=== PATIENT | female | born 1935 | race Caucasian/White ===

== ENCOUNTER → 2018-10-11 07:56 | Outpatient (CLI) | payer MEDICARE, OTHER, SELFPAY ==
[2018-10-11 08:30] LABS: Appearance Urine UA CLEAR; Bilirubin Urine UA NEGATIVE (NEGATIVE); Color Urine UA YELLOW; Glucose Urine UA NEGATIVE (Negative); Ketones Urine UA NEGATIVE (NEGATIVE); Leukocyte Esterase Urine UA NEGATIVE (NEGATIVE); Nitrite Urine UA NEGATIVE (Negative); Occult Blood Urine UA NEGATIVE (Negative); Protein Urine UA NEGATIVE (Negative); Urobilinogen Urine UA 0.2 E.U./dL (0.2)
[2018-10-11 08:36] LABS: Add Manual Diff / Slide Review NO; Basophils Absolute Auto 0 /uL (0-100); Eosinophils Absolute Auto 0 /uL (0-450); Eosinophils Percent Auto 1.5 % (2-4); Hematocrit 43.8 % (36-46); Hemoglobin 14.2 g/dL (12.0-16.0); Lymphocytes Absolute Auto 900 /uL (1100-4500); Lymphocytes Percent Auto 32.4 % (25-40); Mean Corpuscular HGB Conc 32.4 % (30-36); Mean Corpuscular Hemoglobin 28.4 PG (26-34); Mean Corpuscular Volume 87.7 fL (80-100); Monocytes Absolute Auto 400 /uL (0-900); Monocytes Percent Auto 14.5 % (3-14); Neutrophils Absolute Auto 1300 /uL (1500-7000); Neutrophils Percent Auto 50.6 % (50-75); Platelet Count 221 X10^3/uL (150-400); Red Blood Cell Count 4.99 X10^6/uL (4.0-5.2); Red Cell Distribution Width 14.9 % (11.6-14.8); White Blood Cell Count 2.6 X10^3/uL (4.5-11.0)
[2018-10-11 08:50] LABS: Alanine Aminotransferase 11 IU/L (9-52); Albumin 3.8 g/dL (3.5-5.0); Albumin Globulin Ratio 1.4 (1.0-2.8); Alkaline Phosphatase 49 U/L (38-126); Aspartate Aminotransferase 17 IU/L (14-36); Bilirubin Total 0.3 mg/dL (0.2-1.3); Blood Urea Nitrogen 21 mg/dL (7-17); Calcium 8.8 mg/dL (8.4-10.2); Carbon Dioxide 32 mmol/L (22-32); Chloride 102 mmol/L (98-107); Cholesterol 233 mg/dL (140-199); Estimated Glomerular Filt Rate > 60.0 mL/min (>60); Globulin 2.8 g/dL (1.7-4.1); Glucose 113 mg/dL (80-110); HDL Cholesterol 62 mg/dL (40-60); HEMOLYSIS < 15 (0-50); LDL Cholesterol Calculated 152 mg/dL (<100); Potassium 4.4 mmol/L (3.4-5.1); Sodium 138 mmol/L (137-145); Total Protein 6.6 g/dL (6.3-8.2); Triglycerides 95 mg/dL (35-150)
[2018-10-11 09:57] LABS: Free T3, Triiodothyronine Free 4.09 pg/mL (2.77-5.27); Free T4, Direct Thyroxine 0.99 ng/dL (0.78-2.19)
[2018-10-11 10:11] LABS: Thyroid Stimulating Hormone 2.64 uIU/mL (0.47-4.68)
== END ==
PROVIDERS: PCP Family Medicine; Visit Provider Family Medicine
DX: E03.9 Hypothyroidism, unspecified (principal); I10 Essential (primary) hypertension; K21.9 Gastro-esophageal reflux disease without esophagitis; M54.5 Low back pain; R32 Unspecified urinary incontinence; Z51.81 Encounter for therapeutic drug level monitoring
CPT/HCPCS: 36415; 80053; 80061; 81003; 83036; 84439; 84443; 84481; 85025

== ENCOUNTER → 2019-03-20 09:40 | Outpatient (CLI) | payer MEDICARE, OTHER, SELFPAY ==
[2019-03-20 10:35] LABS: Add Manual Diff / Slide Review NO; Basophils Absolute Auto 0 /uL (0-100); Basophils Percent Auto 0.6 % (0-2); Eosinophils Absolute Auto 0 /uL (0-450); Eosinophils Percent Auto 1.2 % (2-4); Hematocrit 42.3 % (36-46); Hemoglobin 14.5 g/dL (12.0-16.0); Lymphocytes Absolute Auto 900 /uL (1100-4500); Lymphocytes Percent Auto 28.9 % (25-40); Mean Corpuscular HGB Conc 34.2 % (30-36); Mean Corpuscular Hemoglobin 30.4 PG (26-34); Mean Corpuscular Volume 88.8 fL (80-100); Monocytes Absolute Auto 400 /uL (0-900); Monocytes Percent Auto 13.2 % (3-14); Neutrophils Absolute Auto 1700 /uL (1500-7000); Neutrophils Percent Auto 56.1 % (50-75); Platelet Count 256 X10^3/uL (150-400); Red Blood Cell Count 4.77 X10^6/uL (4.0-5.2); Red Cell Distribution Width 14.7 % (11.6-14.8)
[2019-03-20 11:08] LABS: Alanine Aminotransferase 14 IU/L (9-52); Albumin 4.2 g/dL (3.5-5.0); Albumin Globulin Ratio 1.8 (1.0-2.8); Alkaline Phosphatase 47 U/L (38-126); Aspartate Aminotransferase 24 IU/L (14-36); BUN Creatinine Ratio 27.1 (6-22); Bilirubin Total 0.5 mg/dL (0.2-1.3); Blood Urea Nitrogen 19 mg/dL (7-17); Calcium 10.1 mg/dL (8.4-10.2); Carbon Dioxide 31 mmol/L (22-32); Chloride 101 mmol/L (98-107); Estimated Glomerular Filt Rate > 60.0 mL/min (>60); Globulin 2.4 g/dL (1.7-4.1); Glucose 99 mg/dL (80-110); HEMOLYSIS < 15 (0-50); Potassium 5.3 mmol/L (3.4-5.1); Sodium 138 mmol/L (137-145); Total Protein 6.6 g/dL (6.3-8.2)
[2019-03-21 10:49] LABS: Cholesterol 238 mg/dL (140-199); HDL Cholesterol 58 mg/dL (40-60); LDL Cholesterol Calculated 161 mg/dL (<100); Triglycerides 93 mg/dL (35-150)
[2019-03-21 10:52] LABS: Hemoglobin A1C% w Est Avg Glu 5.8 % (4.0-6.0)
== END ==
PROVIDERS: Hospitalist; PCP Family Medicine; Visit Provider Family Medicine
DX: Z01.818 Encounter for other preprocedural examination (principal); Z71.89 Other specified counseling; R73.03 Prediabetes; E78.5 Hyperlipidemia, unspecified
CPT/HCPCS: 36415; 80053; 80061; 83036; 85025

== ENCOUNTER → 2019-04-25 08:08 | Outpatient (CLI) | payer MEDICARE, OTHER, SELFPAY ==
--- NOTE | 2019-04-26 18:20 | DI.NM.S_ITS ---
DATE OF SERVICE: 04/25/2019 PROCEDURE PERFORMED: Pharmacologic vasodilator stress and rest myocardial perfusion imaging study with gating to assess ejection fraction and regional wall motion. ORDERING PROVIDER: Melissa Stout MD. INDICATIONS: The patient is an 83-year-old female with paroxysmal atrial fibrillation and an LBBB. CARDIAC STRESS: Per protocol, 0.4 mg of regadenoson was infused with a normal hemodynamic response. She had no angina and her resting ECG shows sinus rhythm with an LBBB precluding ST segment analysis. There were no obvious significant ST-segment shifts or arrhythmias with stress. Per protocol, the patient was injected with 26.0 mCi of technetium-99 Myoview, was then imaged 15 minutes later using a gated SPECT protocol. She returned the following day and was reinjected with an additional 25.9 mCi of technetium-99 Myoview and was imaged 30 minutes later, again using a gated SPECT acquisition protocol. FINDINGS: 1. Raw Data: There is fair myocardial tracer uptake with mild breast shadows noted. The lung/heart ratio is normal at 0.30 with a normal TID ratio of 0.82. 2. Quantitative Gated SPECT: Post stress ejection fraction is estimated at 90%, likely an overestimate because of relatively small left ventricular volumes. There are no wall motion abnormalities. Resting ejection fraction is estimated at 83% with a resting end-diastolic volume of 53 mL. 3. Myocardial Perfusion Imaging: Post stress supine images show a fairly normal myocardial perfusion imaging pattern with a subtle defect in the mid-to- distal anterior septum extending into the apex in a pattern that would be consistent with a LBBB artifact. This defect improves but does not completely resolve on the prone images. The resting images show an identical perfusion pattern without areas of improvement. IMPRESSION: 1. Probable normal myocardial perfusion study. 2. Mild fixed distal anteroseptal and apical defect that nearly completely resolves on prone imaging that most likely reflects left bundle branch block artifact but a previous nontransmural distal anteroseptal infarction cannot be entirely excluded. There is no evidence of any significant myocardial ischemia. 3. Normal left ventricular systolic function with relatively small left ventricular volumes and no obvious focal wall motion abnormalities. 4. No angina with pharmacologic vasodilator stress. The presence of an LBBB precludes ST segment analysis but there are no obvious ST-segment shifts or arrhythmias. Uma Suarez - RS/fn/ab doc#: [id number]/job#: [id number] dd: 04/26/2019 17:29:00 dt: 04/26/2019 17:57:00 DICTATING MD/COPIES TO: Zachery Garcia MD; Melissa Stout MD COPIES MNE: MAGDA RICE
== END ==
PROVIDERS: PCP Family Medicine; Visit Provider Internal Medicine Cardiovascular Disease
DX: I44.7 Left bundle-branch block, unspecified (principal); I48.0 Paroxysmal atrial fibrillation
CPT/HCPCS: 78452; 93016; 93017; 93018; A9502; J2785

== ENCOUNTER → 2019-05-31 07:00 | Outpatient (CLI) | payer MEDICARE, OTHER, SELFPAY ==
[2019-05-31 08:16] LABS: Add Manual Diff / Slide Review NO; Basophils Absolute Auto 0 /uL (0-100); Basophils Percent Auto 0.5 % (0-2); Eosinophils Absolute Auto 100 /uL (0-450); Eosinophils Percent Auto 1.4 % (2-4); Hematocrit 41.4 % (36-46); Hemoglobin 14.1 g/dL (12.0-16.0); Lymphocytes Absolute Auto 1000 /uL (1100-4500); Lymphocytes Percent Auto 25.4 % (25-40); Mean Corpuscular Hemoglobin 30.2 PG (26-34); Mean Corpuscular Volume 88.8 fL (80-100); Monocytes Absolute Auto 600 /uL (0-900); Neutrophils Absolute Auto 2400 /uL (1500-7000); Neutrophils Percent Auto 58.7 % (50-75); Platelet Count 237 X10^3/uL (150-400); Red Blood Cell Count 4.66 X10^6/uL (4.0-5.2); White Blood Cell Count 4.1 X10^3/uL (4.5-11.0)
[2019-05-31 08:20] LABS: BUN Creatinine Ratio 32.9 (6-22); Blood Urea Nitrogen 23 mg/dL (7-17); Calcium 9.6 mg/dL (8.4-10.2); Carbon Dioxide 34 mmol/L (22-32); Chloride 98 mmol/L (98-107); Estimated Glomerular Filt Rate > 60.0 mL/min (>60); Glucose 134 mg/dL (80-110); HEMOLYSIS < 15 (0-50); Potassium 3.4 mmol/L (3.4-5.1); Sodium 139 mmol/L (137-145)
== END ==
PROVIDERS: PCP Family Medicine; Visit Provider Family Medicine
DX: Z01.818 Encounter for other preprocedural examination (principal)
CPT/HCPCS: 36415; 80048; 85025

== ENCOUNTER → 2019-07-11 10:21 | Outpatient (CLI) | payer MEDICARE, OTHER, SELFPAY ==
[2019-07-11 12:02] LABS: Add Manual Diff / Slide Review NO; Basophils Absolute Auto 0 /uL (0-100); Basophils Percent Auto 1.3 % (0-2); Eosinophils Absolute Auto 100 /uL (0-450); Eosinophils Percent Auto 2.8 % (2-4); Hematocrit 41.6 % (36-46); Hemoglobin 14.1 g/dL (12.0-16.0); Lymphocytes Absolute Auto 800 /uL (1100-4500); Lymphocytes Percent Auto 24.2 % (25-40); Mean Corpuscular HGB Conc 33.9 % (30-36); Mean Corpuscular Hemoglobin 29.5 PG (26-34); Mean Corpuscular Volume 87.1 fL (80-100); Monocytes Absolute Auto 300 /uL (0-900); Monocytes Percent Auto 8.8 % (3-14); Neutrophils Absolute Auto 2000 /uL (1500-7000); Neutrophils Percent Auto 62.9 % (50-75); Platelet Count 314 X10^3/uL (150-400); Red Blood Cell Count 4.77 X10^6/uL (4.0-5.2); Red Cell Distribution Width 14.6 % (11.6-14.8); White Blood Cell Count 3.2 X10^3/uL (4.5-11.0)
[2019-07-11 12:42] LABS: Alanine Aminotransferase 68 IU/L (<35); Albumin 4.5 g/dL (3.5-5.0); Albumin Globulin Ratio 1.6 (1.0-2.8); Alkaline Phosphatase 78 U/L (38-126); Aspartate Aminotransferase 47 IU/L (14-36); BUN Creatinine Ratio 31.4 (6-22); Bilirubin Total 0.4 mg/dL (0.2-1.3); Blood Urea Nitrogen 22 mg/dL (7-17); Calcium 9.7 mg/dL (8.4-10.2); Carbon Dioxide 28 mmol/L (22-32); Chloride 100 mmol/L (98-107); Estimated Glomerular Filt Rate > 60.0 mL/min (>60); Globulin 2.8 g/dL (1.7-4.1); Glucose 121 mg/dL (80-110); HEMOLYSIS 15 (0-50); Potassium 3.8 mmol/L (3.4-5.1); Sodium 139 mmol/L (137-145); Total Protein 7.3 g/dL (6.3-8.2)
[2019-07-11 12:55] LABS: Free T4, Direct Thyroxine 1.13 ng/dL (0.78-2.19)
[2019-07-11 13:09] LABS: Thyroid Stimulating Hormone 2.11 uIU/mL (0.47-4.68)
== END ==
PROVIDERS: PCP Family Medicine; Referring Provider Family Medicine; Visit Provider Family Medicine
DX: E03.9 Hypothyroidism, unspecified (principal); Z96.652 Presence of left artificial knee joint
CPT/HCPCS: 36415; 80053; 84439; 84443; 85025

== ENCOUNTER → 2019-12-24 07:54 | Outpatient (CLI) | payer MEDICARE, OTHER, SELFPAY ==
[2019-12-24 09:26] LABS: Alanine Aminotransferase 12 IU/L (<35); Albumin 4.1 g/dL (3.5-5.0); Albumin Globulin Ratio 1.6 (1.0-2.8); Alkaline Phosphatase 45 U/L (38-126); Aspartate Aminotransferase 24 IU/L (14-36); Bilirubin Total 0.6 mg/dL (0.2-1.3); Blood Urea Nitrogen 20 mg/dL (7-17); Calcium 9.4 mg/dL (8.4-10.2); Carbon Dioxide 33 mmol/L (22-32); Chloride 103 mmol/L (98-107); Estimated Glomerular Filt Rate > 60.0 mL/min (>60); Globulin 2.5 g/dL (1.7-4.1); Glucose 129 mg/dL (80-110); HEMOLYSIS < 15 (0-50); Potassium 3.9 mmol/L (3.4-5.1); Sodium 138 mmol/L (137-145); Total Protein 6.6 g/dL (6.3-8.2)
== END ==
PROVIDERS: PCP Family Medicine; Referring Provider Family Medicine; Visit Provider Family Medicine
DX: R94.5 Abnormal results of liver function studies (principal)
CPT/HCPCS: 36415; 80053

== ENCOUNTER → 2020-05-27 06:58 | Outpatient (CLI) | payer MEDICARE, OTHER, SELFPAY ==
[2020-05-27 08:44] LABS: Add Manual Diff / Slide Review NO; Basophils Absolute Auto 0 /uL (0-100); Basophils Percent Auto 0.5 % (0-2); Eosinophils Absolute Auto 100 /uL (0-450); Eosinophils Percent Auto 2.3 % (2-4); Hemoglobin 13.6 g/dL (12.0-16.0); Lymphocytes Absolute Auto 900 /uL (1100-4500); Lymphocytes Percent Auto 24.3 % (25-40); Mean Corpuscular Volume 88.2 fL (80-100); Monocytes Absolute Auto 500 /uL (0-900); Monocytes Percent Auto 12.7 % (3-14); Neutrophils Absolute Auto 2200 /uL (1500-7000); Neutrophils Percent Auto 60.2 % (50-75); Platelet Count 220 X10^3/uL (150-400); Red Blood Cell Count 4.54 X10^6/uL (4.0-5.2); Red Cell Distribution Width 14.9 % (11.6-14.8); White Blood Cell Count 3.7 X10^3/uL (4.5-11.0)
[2020-05-27 09:02] LABS: BUN Creatinine Ratio 14.1 (6-22); Blood Urea Nitrogen 9 mg/dL (7-17); Calcium 9.4 mg/dL (8.4-10.2); Carbon Dioxide 33 mmol/L (22-32); Chloride 101 mmol/L (98-107); Cholesterol 167 mg/dL (140-199); Estimated Glomerular Filt Rate > 60.0 mL/min (>60); Glucose 108 mg/dL (80-110); HDL Cholesterol 60 mg/dL (40-60); HEMOLYSIS < 15 (0-50); LDL Cholesterol Calculated 84 mg/dL (<100); Potassium 3.7 mmol/L (3.4-5.1); Sodium 137 mmol/L (137-145); Triglycerides 114 mg/dL (35-150)
== END ==
PROVIDERS: PCP Family Medicine; Referring Provider Family Medicine; Visit Provider Internal Medicine Cardiovascular Disease
DX: E78.5 Hyperlipidemia, unspecified (principal); Z79.01 Long term (current) use of anticoagulants; I48.0 Paroxysmal atrial fibrillation
CPT/HCPCS: 36415; 80048; 80061; 85025

== ENCOUNTER → 2020-06-10 16:37 | Outpatient (CLI) | payer MEDICARE, OTHER, SELFPAY ==
[2020-06-10 17:46] LABS: Free T4, Direct Thyroxine 1.04 ng/dL (0.78-2.19)
[2020-06-10 18:00] LABS: Thyroid Stimulating Hormone 1.67 uIU/mL (0.47-4.68)
== END ==
PROVIDERS: PCP Family Medicine; Referring Provider Family Medicine; Visit Provider Family Medicine
DX: E03.9 Hypothyroidism, unspecified (principal); R73.09 Other abnormal glucose; R73.03 Prediabetes
CPT/HCPCS: 36415; 83036; 84439; 84443

== ENCOUNTER → 2021-04-23 08:23 | Outpatient (CLI) | payer MEDICARE, OTHER, SELFPAY ==
[2021-04-23 09:21] LABS: Add Manual Diff / Slide Review NO; Basophils Absolute Auto 0 /uL (0-100); Basophils Percent Auto 0.9 % (0-2); Eosinophils Absolute Auto 100 /uL (0-450); Eosinophils Percent Auto 5.5 % (2-4); Hematocrit 44.3 % (36-46); Hemoglobin 15.1 g/dL (12.0-16.0); Lymphocytes Absolute Auto 500 /uL (1100-4500); Lymphocytes Percent Auto 23.5 % (25-40); Mean Corpuscular Hemoglobin 29.8 PG (26-34); Mean Corpuscular Volume 87.5 fL (80-100); Monocytes Absolute Auto 300 /uL (0-900); Neutrophils Absolute Auto 1300 /uL (1500-7000); Neutrophils Percent Auto 56.1 % (50-75); Platelet Count 212 X10^3/uL (150-400); Red Blood Cell Count 5.06 X10^6/uL (4.0-5.2); Red Cell Distribution Width 15.1 % (11.6-14.8); White Blood Cell Count 2.2 X10^3/uL (4.5-11.0)
[2021-04-23 09:34] LABS: Hemoglobin A1C% w Est Avg Glu 5.7 % (4.0-6.0)
[2021-04-23 10:10] LABS: Alanine Aminotransferase 15 IU/L (<35); Albumin 4.3 g/dL (3.5-5.0); Albumin Globulin Ratio 1.6 (1.0-2.8); Alkaline Phosphatase 52 U/L (38-126); Aspartate Aminotransferase 25 IU/L (14-36); BUN Creatinine Ratio 17.9 (6-22); Bilirubin Total 0.5 mg/dL (0.2-1.3); Blood Urea Nitrogen 15 mg/dL (7-17); Calcium 9.2 mg/dL (8.4-10.2); Carbon Dioxide 30 mmol/L (22-32); Chloride 103 mmol/L (98-107); Cholesterol 192 mg/dL (140-199); Estimated Glomerular Filt Rate > 60.0 mL/min (>60); Globulin 2.7 g/dL (1.7-4.1); Glucose 110 mg/dL (80-110); HDL Cholesterol 67 mg/dL (40-60); HEMOLYSIS < 15 (0-50); LDL Cholesterol Calculated 100 mg/dL (<100); Potassium 3.8 mmol/L (3.4-5.1); Sodium 141 mmol/L (137-145); Triglycerides 123 mg/dL (35-150)
[2021-04-23 10:22] LABS: Free T4, Direct Thyroxine 0.99 ng/dL (0.78-2.19)
[2021-04-23 10:36] LABS: Thyroid Stimulating Hormone 2.58 uIU/mL (0.47-4.68)
== END ==
PROVIDERS: PCP Family Medicine; Referring Provider Family Medicine; Visit Provider Family Medicine
DX: E03.9 Hypothyroidism, unspecified (principal); R73.03 Prediabetes; E78.5 Hyperlipidemia, unspecified
CPT/HCPCS: 36415; 80053; 80061; 83036; 84439; 84443; 85025

== ENCOUNTER → 2021-05-30 08:17 | Outpatient (CLI) | payer MEDICARE, OTHER, SELFPAY ==
[2021-05-30 09:01] LABS: Add Manual Diff / Slide Review NO; Basophils Absolute Auto 0 /uL (0-100); Basophils Percent Auto 0.8 % (0-2); Eosinophils Absolute Auto 100 /uL (0-450); Eosinophils Percent Auto 1.8 % (2-4); Hematocrit 41.4 % (36-46); Hemoglobin 14.1 g/dL (12.0-16.0); Lymphocytes Absolute Auto 800 /uL (1100-4500); Lymphocytes Percent Auto 27.3 % (25-40); Mean Corpuscular Hemoglobin 29.6 PG (26-34); Mean Corpuscular Volume 87.1 fL (80-100); Monocytes Absolute Auto 400 /uL (0-900); Neutrophils Absolute Auto 1700 /uL (1500-7000); Neutrophils Percent Auto 57.1 % (50-75); Platelet Count 203 X10^3/uL (150-400); Red Blood Cell Count 4.75 X10^6/uL (4.0-5.2); Red Cell Distribution Width 14.9 % (11.6-14.8); White Blood Cell Count 2.9 X10^3/uL (4.5-11.0)
[2021-05-30 09:17] LABS: BUN Creatinine Ratio 22.1 (6-22); Blood Urea Nitrogen 15 mg/dL (7-17); Calcium 9.5 mg/dL (8.4-10.2); Carbon Dioxide 33 mmol/L (22-32); Chloride 105 mmol/L (98-107); Cholesterol 176 mg/dL (140-199); Estimated Glomerular Filt Rate > 60.0 mL/min (>60); Glucose 104 mg/dL (80-110); HDL Cholesterol 65 mg/dL (40-60); HEMOLYSIS < 15 (0-50); LDL Cholesterol Calculated 91 mg/dL (<100); Potassium 3.9 mmol/L (3.4-5.1); Sodium 140 mmol/L (137-145); Triglycerides 99 mg/dL (35-150)
== END ==
PROVIDERS: PCP Family Medicine; Referring Provider Internal Medicine Cardiovascular Disease; Visit Provider Internal Medicine Cardiovascular Disease
DX: E78.5 Hyperlipidemia, unspecified (principal); Z79.01 Long term (current) use of anticoagulants; I48.0 Paroxysmal atrial fibrillation
CPT/HCPCS: 36415; 80048; 80061; 85025

== ENCOUNTER 2022-04-09 15:29 | Emergency (ER) | payer MEDICARE, OTHER, SELFPAY ==
[2022-04-09] VITALS (34 sets, daily range): BP systolic 113–174; BP diastolic 78–134; PULSE 75–148; RESP 14–24; TEMP 36.6; O2SAT 88–100
--- NOTE | 2022-04-09 15:43 | DI.RAD.S_ITS ---
PROCEDURE: XR CHEST 1V INDICATIONS: Shortness of breath TECHNIQUE: One view of the chest was acquired. COMPARISON: None. FINDINGS: Surgical changes and devices: Cholecystectomy clips. Lungs and pleura: Minimal streaky opacity at the left lung base. No pleural effusions or pneumothorax. Mediastinum: There appears to be air within the lower esophagus. No adenopathy is identified. Heart size is normal. Bones and chest wall: No suspicious bony lesions. Overlying soft tissues appear unremarkable. IMPRESSION: Minimal left basilar atelectasis. Suspect air in the distal esophagus. Dictated by: Gurwinder Chinchilla M.D. on 04/09/2022 at 16:25 Approved by: Gurwinder Chinchilla M.D. on 04/09/2022 at 16:27
[2022-04-09 16:23] LABS: INR 1.2 (0.9-1.3)
[2022-04-09 16:24] LABS: Add Manual Diff / Slide Review NO; Basophils Absolute Auto 0 /uL (0-100); Basophils Percent Auto 0.7 % (0-2); Eosinophils Absolute Auto 100 /uL (0-450); Eosinophils Percent Auto 1.8 % (2-4); Hematocrit 42.9 % (36-46); Hemoglobin 14.1 g/dL (12.0-16.0); Lymphocytes Absolute Auto 900 /uL (1100-4500); Lymphocytes Percent Auto 25.8 % (25-40); Mean Corpuscular HGB Conc 32.9 % (30-36); Mean Corpuscular Hemoglobin 29.2 PG (26-34); Mean Corpuscular Volume 88.7 fL (80-100); Monocytes Absolute Auto 500 /uL (0-900); Neutrophils Absolute Auto 2000 /uL (1500-7000); Neutrophils Percent Auto 57.7 % (50-75); Platelet Count 257 X10^3/uL (150-400); Red Blood Cell Count 4.83 X10^6/uL (4.0-5.2); Red Cell Distribution Width 15.2 % (11.6-14.8); White Blood Cell Count 3.5 X10^3/uL (4.5-11.0)
[2022-04-09 16:27] LABS: Lactate (Lactic Acid) 0.9 mmol/L (0.7-2.1)
[2022-04-09 16:28] LABS: Alanine Aminotransferase 16 IU/L (<35); Albumin 4.3 g/dL (3.5-5.0); Albumin Globulin Ratio 1.5 (1.0-2.8); Alkaline Phosphatase 58 U/L (38-126); Aspartate Aminotransferase 20 IU/L (14-36); BUN Creatinine Ratio 23.9 (6-22); Bilirubin Total 0.3 mg/dL (0.2-1.3); Blood Urea Nitrogen 16 mg/dL (7-17); Calcium 8.8 mg/dL (8.4-10.2); Carbon Dioxide 31 mmol/L (22-32); Chloride 100 mmol/L (98-107); Estimated Glomerular Filt Rate > 60 mL/min (>60); Globulin 2.8 g/dL (1.7-4.1); Glucose 106 mg/dL (80-110); HEMOLYSIS < 15 (0-50); Potassium 3.7 mmol/L (3.4-5.1); Sodium 141 mmol/L (137-145); Total Protein 7.1 g/dL (6.3-8.2)
[2022-04-09 16:39] LABS: NT-proBNP (BNP-Adult 18+) 2930 pg/mL (<450); Troponin I < 0.012 ng/mL (0.01-0.034)
[2022-04-09 17:14] LABS: COVID19 -Nasal RAPID Negative (Negative)
[2022-04-09] MEDS: METOPROLOL TARTRATE 5 MG/5 ML INJ IV ×6 (17:46→19:47)
--- NOTE | 2022-04-09 18:15 | ED.GENADULT ---
HPI - General Adult General Chief complaint: Shortness of Breath/Dyspnea Stated complaint: AFIB and inferior afarct Time Seen by Provider: 04/09/22 17:09 Source: patient Mode of arrival: Ambulatory History of Present Illness HPI narrative: 86-year-old woman with a history of asthma, reflux, paroxysmal atrial fibrillation currently anticoagulated on rivaroxaban, hyperlipidemia who presents with exertional dyspnea. It has been going on for approximately week gotten worse over the last 24 hours. She notes a 10 lb weight increase over the last month. She saw her primary care doctor who noted that she was back in atrial fibrillation rate in the 130s and sent her to the ER for further evaluation.. Current dose of metoprolol is 24 mg of the succinate form. Not having any chest pain and no sensation that her heart is actually fast. She does not notice any orthopnea. She has not had lower extremity edema. No recent fevers, cough, chills, nausea, vomiting, diarrhea, headaches, weakness or paresthesias. Related Data Home Medications Medication Instructions Recorded Confirmed fluticasone propionate 50 1 spray intranasal DAILY 09/19/18 04/09/22 mcg/actuation nasal spray,suspension acetaminophen 500 mg tablet 1,000 mg PO Q6H PRN Pain (Scale 03/21/19 04/09/22 (Tylenol Extra Strength) Score 1-3) esomeprazole magnesium 20 mg 20 mg PO DAILY 07/10/19 04/09/22 capsule,delayed release (Nexium) Previous Rx's Medication Instructions Recorded rivaroxaban 10 mg tablet 10 mg PO DAILY #90 tabs 04/21/21 rosuvastatin 5 mg tablet 2.5 mg PO DAILY #45 tabs 04/21/21 albuterol sulfate 90 mcg/actuation 2 puff inhalation Q6H PRN 08/23/21 aerosol inhaler shortness of breath or wheezing #8.5 grams thyroid (pork) 30 mg tablet See Rx Instructions .Route 09/02/21 ([place] Thyroid) .COMPLEX #90 tabs metoprolol succinate 25 mg See Rx Instructions .Route 03/22/22 tablet,extended release 24 hr .COMPLEX #90 tabs Allergies Allergy/AdvReac Type Severity Reaction Status Date / Time levothyroxine sodium Allergy Mild itching Verified 04/09/22 15:41 [From Synthroid] liothyronine Allergy Mild Itching Verified 04/09/22 15:41 diltiazem Allergy dizziness, Verified 04/09/22 15:41 nausea, triamterene AdvReac Mild Weakness, Verified 04/09/22 15:41 dizzy spells codeine AdvReac dizziness Verified 04/09/22 15:41 Review of Systems Review of Systems Narrative: Remainder of complete review of systems is otherwise unremarkable except for that included in the HPI. Patient History Medical History Atrial fibrillation (~2016) Basal cell carcinoma Chicken pox (~194) Dizzy GERD (gastroesophageal reflux disease) (~1999) Hearing loss (~1994) Hiatal hernia History of urinary incontinence (~2015) Hypothyroidism Insomnia Measles (~1940) Mumps (~1949) Osteoarthritis (~1979) Osteopenia (~1979) Prediabetes Retinal detachment (~1993) Rheumatic fever Rubella (~1949) Seasonal allergies (~1949) Tinnitus (~1959) Vertigo (~1959) Vision disorder Surgical History Anesthesia History of eye surgery History of foot surgery (~1986) History of hysterectomy (~1985) History of knee surgery History of surgery History of tonsillectomy (~193) History of total left knee replacement Status post right knee replacement Family History Father Cancer Mother Diabetes mellitus History of heart disease Stroke Social History Smoking Status: Former smoker Tobacco: How many years used: 20 quit status: has quit before substance use type: marijuana Smoking Status: Former smoker alcohol intake frequency: a few times a week Substance Use Type: does not use Exam Initial Vital Signs Initial Vital Signs: Vital Signs Temperature 98 F 04/09/22 15:35 Pulse Rate 75 04/09/22 15:35 Respiratory Rate 19 04/09/22 15:35 Blood Pressure 138/118 H 04/09/22 15:35 Pulse Oximetry 100 04/09/22 15:35 Oxygen Delivery Method 04/09/22 15:35 General: Healthy appearing, in no acute distress. Able to give a complete and coherent history. Well-nourished well-developed HEENT: Moist mucous membranes, normal sclera with reactive pupils, Neck: No JVD, supple Respiratory: Lungs are clear to auscultation, no wheezing no rales no rhonchi. Full and symmetrical air movement Cardiac: Rapid and irregular without murmurs. Abdomen: Soft, nontender, good bowel tones, no flank pain Skin: Warm and dry, no rashes Neurologic: Grossly neurologically intact with no obvious asymmetries or abnormalities Extremities: No trauma, well perfused, no lower extremity edema Psych: Cooperative, appropriate insight and affect Course Orders Ordered: Discontinued Medications Furosemide (Furosemide 40 Mg/4 Ml Vial) 20 mg IV NOW ONE Stop: 04/09/22 19:25 Last Admin: 04/09/22 19:35 Dose: 20 mg Documented By: GERARDO Metoprolol Succinate (Metoprolol Er 25 Mg Tablet) 25 mg PO NOW ONE Stop: 04/09/22 19:18 Last Admin: 04/09/22 19:34 Dose: 25 mg Documented By: GERARDO Metoprolol Tartrate (Metoprolol Tartrate 5 Mg/5 Ml Inj) 5 mg IV Q5M [facility] Stop: 04/09/22 17:26 Last Admin: 04/09/22 18:07 Dose: 5 mg Documented By: Admin: 04/09/22 17:56 Dose: 5 mg Documented By: Admin: 04/09/22 17:46 Dose: 5 mg Documented By: DASHA Metoprolol Tartrate (Metoprolol Tartrate 5 Mg/5 Ml Inj) 5 mg IV Q5M [facility] Stop: 04/09/22 19:41 Last Admin: 04/09/22 19:47 Dose: 5 mg Documented By: Admin: 04/09/22 19:42 Dose: 5 mg Documented By: Admin: 04/09/22 19:36 Dose: 5 mg Documented By: RL Rivaroxaban (Rivaroxaban 10 Mg Tablet) 10 mg PO NOW ONE Stop: 04/09/22 19:18 Last Admin: 04/09/22 19:34 Dose: 10 mg Documented By: GERARDO Vital Signs Vital signs: Vital Signs - 8 hr 04/09/22 19:25 04/09/22 19:25 04/09/22 19:30 Pulse Rate 135 H Respiratory Rate 24 Blood Pressure 127/86 133/97 H Pulse Oximetry 97 Oxygen Delivery Method 04/09/22 19:30 04/09/22 19:36 04/09/22 19:36 Pulse Rate 136 H 137 H Respiratory Rate 19 23 Blood Pressure 120/85 Pulse Oximetry 97 96 Oxygen Delivery Method 04/09/22 19:45 04/09/22 19:46 04/09/22 19:46 Pulse Rate 130 H 134 H Respiratory Rate 19 21 Blood Pressure 154/90 H Pulse Oximetry 96 96 Oxygen Delivery Method 04/09/22 20:02 Pulse Rate 134 H Respiratory Rate 16 Blood Pressure 152/89 H Pulse Oximetry 98 Oxygen Delivery Method Room Air Medical Decision Making Lab Data Result diagrams: 04/09/22 16:01 04/09/22 16:01 Labs: Lab Results 04/09/22 04/09/22 04/09/22 Range/Units 16:01 16:01 16:01 WBC 3.5 L (4.5-11.0) X10^3/uL RBC 4.83 (4.0-5.2) X10^6/uL Hgb 14.1 (12.0-16.0) g/dL Hct 42.9 (36-46) % MCV 88.7 (80-100) fL MCH 29.2 (26-34) PG MCHC 32.9 (30-36) % RDW 15.2 H (11.6-14.8) % Plt Count 257 (150-400) X10^3/uL Neut % (Auto) 57.7 (50-75) % Lymph % (Auto) 25.8 (25-40) % [place] % (Auto) 14.0 (3-14) % Eos % (Auto) 1.8 L (2-4) % Baso % (Auto) 0.7 (0-2) % Neut # (Auto) 2000 (7286-3452) /uL Lymph # (Auto) 900 L (9059-5499) /uL [place] # (Auto) 500 (0-900) /uL Eos # (Auto) 100 (0-450) /uL Baso # (Auto) 0 (0-100) /uL PT 14.0 H (10.1-12.7) SECONDS INR 1.2 (0.9-1.3) Sodium 141 (137-145) mmol/L Potassium 3.7 (3.4-5.1) mmol/L Chloride 100 (98-107) mmol/L Carbon Dioxide 31 (22-32) mmol/L BUN 16 (7-17) mg/dL Creatinine 0.67 (0.52-1.04) mg/dL Estimated GFR > 60 (>60) mL/min BUN/Creatinine Ratio 23.9 H (6-22) Glucose 106 (80-110) mg/dL Lactate (0.7-2.1) mmol/L Calcium 8.8 (8.4-10.2) mg/dL Total Bilirubin 0.3 (0.2-1.3) mg/dL AST 20 (14-36) IU/L ALT 16 (<35) IU/L Alkaline Phosphatase 58 (38-126) U/L Troponin I < 0.012 (0.01-0.034) ng/mL NT-Pro-B Natriuret Pep 2930 H (<450) pg/mL Total Protein 7.1 (6.3-8.2) g/dL Albumin 4.3 (3.5-5.0) g/dL Globulin 2.8 (1.7-4.1) g/dL Albumin/Globulin Ratio 1.5 (1.0-2.8) SARS-CoV-2 (PCR) (Negative) 04/09/22 04/09/22 Range/Units 16:01 16:54 WBC (4.5-11.0) X10^3/uL RBC (4.0-5.2) X10^6/uL Hgb (12.0-16.0) g/dL Hct (36-46) % MCV (80-100) fL MCH (26-34) PG MCHC (30-36) % RDW (11.6-14.8) % Plt Count (150-400) X10^3/uL Neut % (Auto) (50-75) % Lymph % (Auto) (25-40) % [place] % (Auto) (3-14) % Eos % (Auto) (2-4) % Baso % (Auto) (0-2) % Neut # (Auto) (6837-8811) /uL Lymph # (Auto) (1041-9645) /uL [place] # (Auto) (0-900) /uL Eos # (Auto) (0-450) /uL Baso # (Auto) (0-100) /uL PT (10.1-12.7) SECONDS INR (0.9-1.3) Sodium (137-145) mmol/L Potassium (3.4-5.1) mmol/L Chloride (98-107) mmol/L Carbon Dioxide (22-32) mmol/L BUN (7-17) mg/dL Creatinine (0.52-1.04) mg/dL Estimated GFR (>60) mL/min BUN/Creatinine Ratio (6-22) Glucose (80-110) mg/dL Lactate 0.9 (0.7-2.1) mmol/L Calcium (8.4-10.2) mg/dL Total Bilirubin (0.2-1.3) mg/dL AST (14-36) IU/L ALT (<35) IU/L Alkaline Phosphatase (38-126) U/L Troponin I (0.01-0.034) ng/mL NT-Pro-B Natriuret Pep (<450) pg/mL Total Protein (6.3-8.2) g/dL Albumin (3.5-5.0) g/dL Globulin (1.7-4.1) g/dL Albumin/Globulin Ratio (1.0-2.8) SARS-CoV-2 (PCR) Negative (Negative) Imaging Data Chest x-ray: Radiologist's Impression: FINDINGS:? ? Surgical changes and devices:? Cholecystectomy clips.? ? Lungs and pleura:? Minimal streaky opacity at the left lung base.? No pleural effusions or pneumothorax.? ? Mediastinum:? There appears to be air within the lower esophagus.? No adenopathy is identified.? Heart size is normal.? ? Bones and chest wall:? No suspicious bony lesions.? Overlying soft tissues appear unremarkable.? ? IMPRESSION:? Minimal left basilar atelectasis.? ? Suspect air in the distal esophagus. ? ? Dictated by: Gurwinder Chinchilla M.D. on 04/09/2022 at 16:25 ? ? ECG Data Interpretation: Atrial fibrillation at a rate of 132 Left bundle branch block with left axis deviation No acute ischemia MDM Narrative Medical decision making narrative: Discussed with Dr Crump Given the fact that she has likely been in AFib for the last week and on an inadequate dose of rivaroxaban, 5 mg only, recommended against cardioversion in the department. Her recommendation was to increase drive about rocks back to full 20 mg daily, increase metoprolol to 25 mg succinate b.i.d. and discharge home. She will speak with Dr. Lisa to arrange for close outpatient follow-up. She does have some mild fluid overload likely as result of her increased rate over the last week. Will give her 20 mg of Lasix today however if her rate comes down I think she will diurese nicely and I will not anticipate discharging her home with additional diuretics. Discharge Plan Departure Patient Disposition: Home Clinical Impression: Atrial fibrillation with rapid ventricular response, Exertional dyspnea, Cardiac volume overload Atrial fibrillation Qualifiers: Atrial fibrillation type: paroxysmal Qualified Code(s): I48.0 - Paroxysmal atrial fibrillation Instructions: DI for Atrial Fibrillation Activity Restrictions/Additional Instructions: Thank you for coming in today I suspect that you have been in atrial fibrillation that has been going a bit too fast for the last week. The rapid heart rate as well as the slight fluid buildup from the rapid heart rate are all contributing to the shortness of breath that you are experiencing. In the emergency department, your blood work was very reassuring. There is no evidence of a heart attack or electrolyte abnormalities. Thyroid studies are currently pending in your primary care doctor associate dean of students can follow-up with this next week. I am going to suggest a number of recommendations and changes for your medications after my discussion with Dr. Crump, the associate dean of students quality assurance monitor final this evening. 1. increase your metoprolol ER 25mg to morning and night 2. Increase your rivaroxaban to 20 mg total daily. This will be 2 of your current 10 mg pills Continue all of your other medications without changes Dr. Crump will be contacting your associate dean of students and you should expect to hear from the Cardiology group early next week to set up an appointment to be seen early next week. If you find that you are having chest pain, your shortness of breath is worsening, your having new or changing symptoms, you develop a fever or cough you do need to return to the emergency department I wish you the best Prescriptions: No Action albuterol sulfate 90 mcg/actuation HFA aerosol inhaler 2 puff inhalation Q6H PRN (Reason: shortness of breath or wheezing) Qty: 8.5 0RF thyroid (pork) [[place] Thyroid] 30 mg tablet See Rx Instructions .ROUTE .COMPLEX Qty: 90 0RF Dose Instruction: TAKE 1 TABLET BY MOUTH DAILY Rx Instructions: TAKE 1 TABLET BY MOUTH DAILY metoprolol succinate 25 mg tablet extended release 24 hr See Rx Instructions .ROUTE .COMPLEX Qty: 90 3RF Dose Instruction: TAKE 1 TABLET BY MOUTH DAILY Rx Instructions: TAKE 1 TABLET BY MOUTH DAILY fluticasone propionate 50 mcg/actuation spray,suspension 1 spray NASAL DAILY esomeprazole magnesium [Nexium] 20 mg capsule,delayed release(DR/EC) 20 mg PO DAILY rivaroxaban 10 mg tablet 10 mg PO DAILY Qty: 90 3RF rosuvastatin 5 mg tablet 2.5 mg PO DAILY Qty: 45 3RF acetaminophen [Tylenol Extra Strength] 500 mg tablet 1,000 mg PO Q6H PRN (Reason: Pain (Scale Score 1-3)) Referrals: Joey Duncan DO [Primary Care Provider] - Visit Report Forms: Patient Portal/API
[2022-04-09] MEDS: METOPROLOL ER 25 MG TABLET PO (19:34)
[2022-04-09] MEDS: RIVAROXABAN 10 MG TABLET PO (19:34)
[2022-04-09] MEDS: FUROSEMIDE 40 MG/4 ML VIAL 20 MG IV (19:35)
== END 2022-04-09 20:08 | disposition home or self-care (01) ==
PROVIDERS: Emergency Medicine; Emergency Provider Emergency Medicine; PCP Family Medicine
DX: I48.0 Paroxysmal atrial fibrillation (principal); R06.00 Dyspnea, unspecified; E87.79 Other fluid overload; Z79.899 Other long term (current) drug therapy; Z20.822 Contact with and (suspected) exposure to COVID-19
CPT/HCPCS: 36415; 71045; 80053; 83605; 83880; 84484; 85025; 85610; 87635; 93005; 93010; 96374; 96375; 96376; 99284; C9803; J1940

== ENCOUNTER 2022-04-13 06:26 | Emergency (ER) | payer MEDICARE, OTHER, SELFPAY ==
[2022-04-13] VITALS (16 sets, daily range): BP systolic 111–162; BP diastolic 76–98; PULSE 88–150; RESP 13–30; TEMP 37.5; O2SAT 93–99; BMI 29.2
--- NOTE | 2022-04-13 06:29 | ED.SOB ---
HPI - SOB/Dyspnea <Norberto Camejo, DO - Last Filed: 04/14/22 02:55> General Chief Complaint: Arrhythmia/Palpitations Stated Complaint: Afib Time Seen by Provider: 04/13/22 06:28 History of Present Illness HPI Narrative: 86F former smoker with history of AFib on Xarelto presents by EMS for evaluation of orthopnea for the past few days. She was seen and evaluated here a few days ago under relatively similar circumstances and after consultation between our emergency physician and Cardiology she was thought to not be an appropriate candidate for cardioversion as she had been subtherapeutic on low-dose Xarelto. After consultation her metoprolol was increased to 25 mg b.i.d. and she was increased to Xarelto 20 mg and encouraged to follow-up. She has had about a 10 lb weight gain over the past month or so. Prior to her visit on Tuesday she had been in AFib for about a week. She is had no fever or chills. She is not dizzy nor weak or lightheaded. She denies any nausea, vomiting or diarrhea Related Data Home Medications Medication Instructions Recorded Confirmed fluticasone propionate 50 1 spray intranasal DAILY 09/19/18 04/09/22 mcg/actuation nasal spray,suspension acetaminophen 500 mg tablet 1,000 mg PO Q6H PRN Pain (Scale 03/21/19 04/09/22 (Tylenol Extra Strength) Score 1-3) esomeprazole magnesium 20 mg 20 mg PO DAILY 07/10/19 04/09/22 capsule,delayed release (Nexium) Previous Rx's Medication Instructions Recorded rivaroxaban 10 mg tablet 10 mg PO DAILY #90 tabs 04/21/21 rosuvastatin 5 mg tablet 2.5 mg PO DAILY #45 tabs 04/21/21 albuterol sulfate 90 mcg/actuation 2 puff inhalation Q6H PRN 08/23/21 aerosol inhaler shortness of breath or wheezing #8.5 grams thyroid (pork) 30 mg tablet See Rx Instructions .Route 09/02/21 ([place] Thyroid) .COMPLEX #90 tabs metoprolol succinate 25 mg See Rx Instructions .Route 03/22/22 tablet,extended release 24 hr .COMPLEX #90 tabs furosemide 20 mg tablet (Lasix) 20 mg PO DAILY PRN edema #30 tabs 04/13/22 metoprolol tartrate 75 mg tablet 75 mg PO BID #60 tabs 04/13/22 spironolactone 25 mg tablet 12.5 mg PO DAILY #30 tabs 04/13/22 Allergies Allergy/AdvReac Type Severity Reaction Status Date / Time levothyroxine sodium Allergy Mild itching Verified 04/09/22 15:41 [From Synthroid] liothyronine Allergy Mild Itching Verified 04/09/22 15:41 diltiazem Allergy dizziness, Verified 04/09/22 15:41 nausea, triamterene AdvReac Mild Weakness, Verified 04/09/22 15:41 dizzy spells codeine AdvReac dizziness Verified 04/09/22 15:41 Review of Systems <Norberto Camejo DO - Last Filed: 04/14/22 02:55> Review of Systems Narrative: GENERAL: Denies chills, fatigue, malaise, fever, sweats. HEENT: Denies sinus pain, ear pain, sore throat, difficulty swallowing, dizziness. RESPIRATORY: See HPI CARDIOVASCULAR: See HPI GASTROINTESTINAL: Denies nausea, vomiting, abdominal pain, diarrhea, constipation, melena. : Denies dysuria, frequency, incontinence, hematuria, urinary retention. MUSCULOSKELETAL: denies weakness, joint pain, or bony pain SKIN: Denies rash, skin lesions, or other NEUROLOGIC: Denies weakness, headache, numbness, change in speech, confusion, seizures, incoordination. PSYCHIATRIC: No concerning psychosocial issues. 12 point review of systems is negative except for those stated above Patient History <DO Jay Pelayo Last Filed: 04/14/22 02:55> Medical History Atrial fibrillation (~2017) Basal cell carcinoma Chicken pox (~1948) Dizzy GERD (gastroesophageal reflux disease) (~1999) Hearing loss (~1994) Hiatal hernia History of urinary incontinence (~2015) Hypothyroidism Insomnia Measles (~194) Mumps (~1949) Osteoarthritis (~1979) Osteopenia (~1979) Prediabetes Retinal detachment (~1993) Rheumatic fever Rubella (~1949) Seasonal allergies (~1949) Tinnitus (~1959) Vertigo (~1959) Vision disorder Surgical History Anesthesia History of eye surgery History of foot surgery (~1986) History of hysterectomy (~1985) History of knee surgery History of surgery History of tonsillectomy (~1937) History of total left knee replacement Status post right knee replacement Family History Father Cancer Mother Diabetes mellitus History of heart disease Stroke Social History Smoking Status: Former smoker Tobacco: How many years used: 20 quit status: has quit before substance use type: marijuana Smoking Status: Former smoker alcohol intake frequency: a few times a week Substance Use Type: does not use Exam <Norberto Camejo DO - Last Filed: 04/14/22 02:55> Narrative Exam Narrative: GENERAL: [86] year old patient appears stated age. Well-developed patient, in mild distress. HEAD: Atraumatic. Normocephalic. EYES: Pupils equal round and reactive. Extraocular motions intact. No scleral icterus. No injection or drainage. ENT: Nose without bleeding, purulent drainage. Throat without erythema, tonsillar hypertrophy or exudate. Airway patent. NECK: Trachea midline. Non tender CARDIOVASCULAR: Tachycardic and irregular rhythm without murmurs, gallops, or rubs. RESPIRATORY: Faint crackles in bilateral bases, no significant work of breathing, use of accessory muscles, hypoxemia conversational dyspnea GASTROINTESTINAL: Abdomen soft, non-tender, nondistended. EXTREMITIES: Bilateral lower extremity 1+ pitting edema BACK: Nontender without deformity or crepitance. No flank tenderness. NEURO: AOx3. SKIN: No rash or erythema of visible areas Initial Vital Signs Initial Vital Signs: Vital Signs Temperature 99.5 F 04/13/22 06:31 Pulse Rate 137 H 04/13/22 06:31 Respiratory Rate 24 04/13/22 06:31 Blood Pressure 162/98 H 04/13/22 06:31 Pulse Oximetry 96 04/13/22 06:31 Oxygen Delivery Method 04/13/22 06:31 <Ricky Cooley DO - Last Filed: 04/13/22 18:00> Initial Vital Signs Initial Vital Signs: Vital Signs Temperature 99.5 F 04/13/22 06:31 Pulse Rate 137 H 04/13/22 06:31 Respiratory Rate 24 04/13/22 06:31 Blood Pressure 162/98 H 04/13/22 06:31 Pulse Oximetry 96 04/13/22 06:31 Oxygen Delivery Method 04/13/22 06:31 Course <Norberto Camejo DO - Last Filed: 04/14/22 02:55> Orders Ordered: Discontinued Medications Furosemide (Furosemide 40 Mg/4 Ml Vial) 40 mg IV NOW ONE Stop: 04/13/22 06:50 Last Admin: 04/13/22 07:02 Dose: 40 mg Documented By: ESTEBAN Metoprolol Succinate (Metoprolol Er 25 Mg Tablet) 25 mg PO NOW ONE Stop: 04/13/22 06:48 Metoprolol Tartrate (Metoprolol Ir 25 Mg Tablet) 50 mg PO NOW ONE Stop: 04/13/22 06:52 Last Admin: 04/13/22 07:00 Dose: 50 mg Documented By: ESTEBAN Metoprolol Tartrate (Metoprolol Ir 25 Mg Tablet) 25 mg PO NOW ONE Stop: 04/13/22 09:24 Last Admin: 04/13/22 09:37 Dose: 25 mg Documented By: KENYETTA Consultations Consultation #1: Discussed with patient's primary industrial refrigeration mechanic Dr. Stout. We have discussed the patient's history and physical exam in detail. He states patient is not an appropriate candidate for cardioversion. Recommends giving short-acting metoprolol 50 mg now, gentle diuresis with goal heart rate certainly below 110 and preferably below 100 at which point she could likely be discharged. He is on-call over the course of the day and is happy to discuss further if needed Vital Signs Vital signs: Vital Signs - 8 hr 04/13/22 10:00 04/13/22 10:01 04/13/22 10:07 Pulse Rate 112 H 125 H 96 H Respiratory Rate 25 H 24 21 Blood Pressure Pulse Oximetry 97 97 98 04/13/22 10:07 04/13/22 10:30 04/13/22 11:00 Pulse Rate 98 H 88 Respiratory Rate 24 22 Blood Pressure 131/94 H Pulse Oximetry 96 98 <Ricky Cooley DO - Last Filed: 04/13/22 18:00> Orders Ordered: Discontinued Medications Furosemide (Furosemide 40 Mg/4 Ml Vial) 40 mg IV NOW ONE Stop: 04/13/22 06:50 Last Admin: 04/13/22 07:02 Dose: 40 mg Documented By: ESTEBAN Metoprolol Succinate (Metoprolol Er 25 Mg Tablet) 25 mg PO NOW ONE Stop: 04/13/22 06:48 Metoprolol Tartrate (Metoprolol Ir 25 Mg Tablet) 50 mg PO NOW ONE Stop: 04/13/22 06:52 Last Admin: 04/13/22 07:00 Dose: 50 mg Documented By: ESTEBAN Metoprolol Tartrate (Metoprolol Ir 25 Mg Tablet) 25 mg PO NOW ONE Stop: 04/13/22 09:24 Last Admin: 04/13/22 09:37 Dose: 25 mg Documented By: KENYETTA Vital Signs Vital signs: Vital Signs - 8 hr 04/13/22 10:00 04/13/22 10:01 04/13/22 10:07 Pulse Rate 112 H 125 H 96 H Respiratory Rate 25 H 24 21 Blood Pressure Pulse Oximetry 97 97 98 04/13/22 10:07 04/13/22 10:30 04/13/22 11:00 Pulse Rate 98 H 88 Respiratory Rate 24 22 Blood Pressure 131/94 H Pulse Oximetry 96 98 MDM - SOB/Dyspnea <Norberto Camejo DO - Last Filed: 04/14/22 02:55> Lab Data Result diagrams: 04/13/22 06:30 04/13/22 06:30 Labs: Lab Results 04/13/22 04/13/22 04/13/22 Range/Units 06:30 06:30 06:30 WBC 6.3 (4.5-11.0) X10^3/uL RBC 4.73 (4.0-5.2) X10^6/uL Hgb 14.2 (12.0-16.0) g/dL Hct 41.7 (36-46) % MCV 88.0 (80-100) fL MCH 30.0 (26-34) PG MCHC 34.1 (30-36) % RDW 14.9 H (11.6-14.8) % Plt Count 226 (150-400) X10^3/uL Neut % (Auto) 74.6 (50-75) % Lymph % (Auto) 15.6 L (25-40) % Meade % (Auto) 8.2 (3-14) % Eos % (Auto) 1.2 L (2-4) % Baso % (Auto) 0.4 (0-2) % Neut # (Auto) 4700 (0449-5875) /uL Lymph # (Auto) 1000 L (8716-5800) /uL Meade # (Auto) 500 (0-900) /uL Eos # (Auto) 100 (0-450) /uL Baso # (Auto) 0 (0-100) /uL PT 22.4 H D (10.1-12.7) SECONDS INR 1.9 H (0.9-1.3) Sodium 137 (137-145) mmol/L Potassium 4.5 (3.4-5.1) mmol/L Chloride 100 (98-107) mmol/L Carbon Dioxide 25 (22-32) mmol/L BUN 16 (7-17) mg/dL Creatinine 0.65 (0.52-1.04) mg/dL Estimated GFR > 60 (>60) mL/min BUN/Creatinine Ratio 24.6 H (6-22) Glucose 128 H (80-110) mg/dL Calcium 8.9 (8.4-10.2) mg/dL Magnesium (1.6-2.3) mg/dL Total Bilirubin 0.7 (0.2-1.3) mg/dL AST 44 H (14-36) IU/L ALT 31 (<35) IU/L Alkaline Phosphatase 52 (38-126) U/L Total Creatine Kinase (30-135) U/L CK-MB (CK-2) CK-MB (CK-2) Rel Index Troponin I (0.01-0.034) ng/mL NT-Pro-B Natriuret Pep (<450) pg/mL Total Protein 7.4 (6.3-8.2) g/dL Albumin 4.4 (3.5-5.0) g/dL Globulin 3.0 (1.7-4.1) g/dL Albumin/Globulin Ratio 1.5 (1.0-2.8) SARS-CoV-2 (PCR) (Negative) 04/13/22 04/13/22 04/13/22 Range/Units 06:30 07:07 10:27 WBC (4.5-11.0) X10^3/uL RBC (4.0-5.2) X10^6/uL Hgb (12.0-16.0) g/dL Hct (36-46) % MCV (80-100) fL MCH (26-34) PG MCHC (30-36) % RDW (11.6-14.8) % Plt Count (150-400) X10^3/uL Neut % (Auto) (50-75) % Lymph % (Auto) (25-40) % Meade % (Auto) (3-14) % Eos % (Auto) (2-4) % Baso % (Auto) (0-2) % Neut # (Auto) (0392-1400) /uL Lymph # (Auto) (3836-6890) /uL Meade # (Auto) (0-900) /uL Eos # (Auto) (0-450) /uL Baso # (Auto) (0-100) /uL PT (10.1-12.7) SECONDS INR (0.9-1.3) Sodium (137-145) mmol/L Potassium (3.4-5.1) mmol/L Chloride (98-107) mmol/L Carbon Dioxide (22-32) mmol/L BUN (7-17) mg/dL Creatinine (0.52-1.04) mg/dL Estimated GFR (>60) mL/min BUN/Creatinine Ratio (6-22) Glucose (80-110) mg/dL Calcium (8.4-10.2) mg/dL Magnesium 2.1 (1.6-2.3) mg/dL Total Bilirubin (0.2-1.3) mg/dL AST (14-36) IU/L ALT (<35) IU/L Alkaline Phosphatase (38-126) U/L Total Creatine Kinase 55 28 L (30-135) U/L CK-MB (CK-2) TNP TNP CK-MB (CK-2) Rel Index TNP TNP Troponin I < 0.012 < 0.012 (0.01-0.034) ng/mL NT-Pro-B Natriuret Pep 3600 H (<450) pg/mL Total Protein (6.3-8.2) g/dL Albumin (3.5-5.0) g/dL Globulin (1.7-4.1) g/dL Albumin/Globulin Ratio (1.0-2.8) SARS-CoV-2 (PCR) Negative (Negative) <Ricky Cooley, - Last Filed: 04/13/22 18:00> Lab Data Labs: Lab Results 04/13/22 04/13/22 04/13/22 Range/Units 06:30 06:30 06:30 WBC 6.3 (4.5-11.0) X10^3/uL RBC 4.73 (4.0-5.2) X10^6/uL Hgb 14.2 (12.0-16.0) g/dL Hct 41.7 (36-46) % MCV 88.0 (80-100) fL MCH 30.0 (26-34) PG MCHC 34.1 (30-36) % RDW 14.9 H (11.6-14.8) % Plt Count 226 (150-400) X10^3/uL Neut % (Auto) 74.6 (50-75) % Lymph % (Auto) 15.6 L (25-40) % Meade % (Auto) 8.2 (3-14) % Eos % (Auto) 1.2 L (2-4) % Baso % (Auto) 0.4 (0-2) % Neut # (Auto) 4700 (2428-5830) /uL Lymph # (Auto) 1000 L (5076-8852) /uL Meade # (Auto) 500 (0-900) /uL Eos # (Auto) 100 (0-450) /uL Baso # (Auto) 0 (0-100) /uL PT 22.4 H D (10.1-12.7) SECONDS INR 1.9 H (0.9-1.3) Sodium 137 (137-145) mmol/L Potassium 4.5 (3.4-5.1) mmol/L Chloride 100 (98-107) mmol/L Carbon Dioxide 25 (22-32) mmol/L BUN 16 (7-17) mg/dL Creatinine 0.65 (0.52-1.04) mg/dL Estimated GFR > 60 (>60) mL/min BUN/Creatinine Ratio 24.6 H (6-22) Glucose 128 H (80-110) mg/dL Calcium 8.9 (8.4-10.2) mg/dL Magnesium (1.6-2.3) mg/dL Total Bilirubin 0.7 (0.2-1.3) mg/dL AST 44 H (14-36) IU/L ALT 31 (<35) IU/L Alkaline Phosphatase 52 (38-126) U/L Total Creatine Kinase (30-135) U/L CK-MB (CK-2) CK-MB (CK-2) Rel Index Troponin I (0.01-0.034) ng/mL NT-Pro-B Natriuret Pep (<450) pg/mL Total Protein 7.4 (6.3-8.2) g/dL Albumin 4.4 (3.5-5.0) g/dL Globulin 3.0 (1.7-4.1) g/dL Albumin/Globulin Ratio 1.5 (1.0-2.8) SARS-CoV-2 (PCR) (Negative) 04/13/22 04/13/22 04/13/22 Range/Units 06:30 07:07 10:27 WBC (4.5-11.0) X10^3/uL RBC (4.0-5.2) X10^6/uL Hgb (12.0-16.0) g/dL Hct (36-46) % MCV (80-100) fL MCH (26-34) PG MCHC (30-36) % RDW (11.6-14.8) % Plt Count (150-400) X10^3/uL Neut % (Auto) (50-75) % Lymph % (Auto) (25-40) % Meade % (Auto) (3-14) % Eos % (Auto) (2-4) % Baso % (Auto) (0-2) % Neut # (Auto) (7357-8539) /uL Lymph # (Auto) (0571-8159) /uL Meade # (Auto) (0-900) /uL Eos # (Auto) (0-450) /uL Baso # (Auto) (0-100) /uL PT (10.1-12.7) SECONDS INR (0.9-1.3) Sodium (137-145) mmol/L Potassium (3.4-5.1) mmol/L Chloride (98-107) mmol/L Carbon Dioxide (22-32) mmol/L BUN (7-17) mg/dL Creatinine (0.52-1.04) mg/dL Estimated GFR (>60) mL/min BUN/Creatinine Ratio (6-22) Glucose (80-110) mg/dL Calcium (8.4-10.2) mg/dL Magnesium 2.1 (1.6-2.3) mg/dL Total Bilirubin (0.2-1.3) mg/dL AST (14-36) IU/L ALT (<35) IU/L Alkaline Phosphatase (38-126) U/L Total Creatine Kinase 55 28 L (30-135) U/L CK-MB (CK-2) TNP TNP CK-MB (CK-2) Rel Index TNP TNP Troponin I < 0.012 < 0.012 (0.01-0.034) ng/mL NT-Pro-B Natriuret Pep 3600 H (<450) pg/mL Total Protein (6.3-8.2) g/dL Albumin (3.5-5.0) g/dL Globulin (1.7-4.1) g/dL Albumin/Globulin Ratio (1.0-2.8) SARS-CoV-2 (PCR) Negative (Negative) ECG Data Interpretation: Repeat ECG Atrial fibrillation Ventricular rate 106 LVH QTC [address] T wave changes MDM Narrative Medical decision making narrative: Dr cooley: Received turned over. Reviewed patient's history and physical exam and labs at this point. Performed my own independent exam. Patient has received 50 mg of metoprolol. Her heart rate improved however she still remained in the 120s. Blood pressure is unremarkable. I did discuss case with Dr. Stout who is the patient's industrial refrigeration mechanic. He recommended a 2nd dose of metoprolol so she was given another 25 mg afterwards her heart rate was then consistently in the 80s and 90s. States she felt better. Troponin continues to be negative. I once again discussed the case with Dr. Mchugh. Plan abuse increase her metoprolol to 75 mg twice a day. Also sent home on spironolactone and Lasix to use as needed. She was given return precautions and follow-up instructions. She expressed understanding and agreement. She will continue to take her anticoagulation. Discharge Plan Departure Patient Disposition: Home Clinical Impression: Atrial fibrillation Instructions: DI for Atrial Fibrillation Activity Restrictions/Additional Instructions: After discussion with your industrial refrigeration mechanic we are going to make some changes to your medicines We are going to increase her metoprolol from 25 mg 2 times a day to 75 mg 2 times a day. We are going to add a medication called spironolactone. This medicine will be 12.5 mg daily You were also given a prescription for medicine called Lasix/furosemide. This is an as-needed medicine to take if you are retaining fluid. This is a 1 time a day Medicine Dr. Beasley would like to see you in the office in the next 1-2 weeks. If you have not heard from his office by of this week please give his office a call for follow-up. Continue the rest of your medications as directed. Prescriptions: New spironolactone 25 mg tablet 12.5 mg PO DAILY Qty: 30 0RF furosemide [Lasix] 20 mg tablet 20 mg PO DAILY PRN (Reason: edema) Qty: 30 0RF metoprolol tartrate 75 mg tablet 75 mg PO BID Qty: 60 0RF No Action albuterol sulfate 90 mcg/actuation HFA aerosol inhaler 2 puff inhalation Q6H PRN (Reason: shortness of breath or wheezing) Qty: 8.5 0RF thyroid (pork) [[place] Thyroid] 30 mg tablet See Rx Instructions .ROUTE .COMPLEX Qty: 90 0RF Dose Instruction: TAKE 1 TABLET BY MOUTH DAILY Rx Instructions: TAKE 1 TABLET BY MOUTH DAILY metoprolol succinate 25 mg tablet extended release 24 hr See Rx Instructions .ROUTE .COMPLEX Qty: 90 3RF Dose Instruction: TAKE 1 TABLET BY MOUTH DAILY Rx Instructions: TAKE 1 TABLET BY MOUTH DAILY fluticasone propionate 50 mcg/actuation spray,suspension 1 spray NASAL DAILY esomeprazole magnesium [Nexium] 20 mg capsule,delayed release(DR/EC) 20 mg PO DAILY rivaroxaban 10 mg tablet 10 mg PO DAILY Qty: 90 3RF rosuvastatin 5 mg tablet 2.5 mg PO DAILY Qty: 45 3RF acetaminophen [Tylenol Extra Strength] 500 mg tablet 1,000 mg PO Q6H PRN (Reason: Pain (Scale Score 1-3)) Referrals: Joey Duncan, [Primary Care Provider] - Visit Report Forms: Patient Portal/API
--- NOTE | 2022-04-13 06:31 | DI.RAD.S_ITS ---
PROCEDURE: XR CHEST 1V INDICATIONS: SOB TECHNIQUE: One view of the chest was acquired. COMPARISON: [facility], CR, XR CHEST 1V, 04/09/2022, 16:07. FINDINGS: Surgical changes and devices: None. Lungs and pleura: Interstitial infiltrates in lower lobes bilaterally. Bibasilar scars and atelectasis. No pleural effusions or pneumothorax. Mediastinum: Mediastinal contours appear normal. Heart size is normal. Bones and chest wall: No suspicious bony lesions. Overlying soft tissues appear unremarkable. IMPRESSION: 1. Interstitial infiltrates in lower lobes bilaterally. Differential diagnoses include mild pulmonary edema versus atypical pneumonia. 2. Bibasilar scars and atelectasis. No significant discrepancy with the director of public works radiology preliminary report. Dictated by: Edmundo Jarvis M.D. on 04/13/2022 at 8:39 Approved by: Edmundo Jarvis M.D. on 04/13/2022 at 8:41
[2022-04-13 06:47] LABS: Add Manual Diff / Slide Review NO; Basophils Absolute Auto 0 /uL (0-100); Basophils Percent Auto 0.4 % (0-2); Eosinophils Absolute Auto 100 /uL (0-450); Eosinophils Percent Auto 1.2 % (2-4); Hematocrit 41.7 % (36-46); Hemoglobin 14.2 g/dL (12.0-16.0); Lymphocytes Absolute Auto 1000 /uL (1100-4500); Lymphocytes Percent Auto 15.6 % (25-40); Mean Corpuscular HGB Conc 34.1 % (30-36); Monocytes Absolute Auto 500 /uL (0-900); Monocytes Percent Auto 8.2 % (3-14); Neutrophils Absolute Auto 4700 /uL (1500-7000); Neutrophils Percent Auto 74.6 % (50-75); Platelet Count 226 X10^3/uL (150-400); Red Blood Cell Count 4.73 X10^6/uL (4.0-5.2); Red Cell Distribution Width 14.9 % (11.6-14.8); White Blood Cell Count 6.3 X10^3/uL (4.5-11.0)
[2022-04-13 06:59] LABS: Alanine Aminotransferase 31 IU/L (<35); Albumin 4.4 g/dL (3.5-5.0); Albumin Globulin Ratio 1.5 (1.0-2.8); Alkaline Phosphatase 52 U/L (38-126); BUN Creatinine Ratio 24.6 (6-22); Bilirubin Total 0.7 mg/dL (0.2-1.3); Blood Urea Nitrogen 16 mg/dL (7-17); Calcium 8.9 mg/dL (8.4-10.2); Carbon Dioxide 25 mmol/L (22-32); Chloride 100 mmol/L (98-107); Estimated Glomerular Filt Rate > 60 mL/min (>60); Glucose 128 mg/dL (80-110); Sodium 137 mmol/L (137-145); Total Protein 7.4 g/dL (6.3-8.2)
[2022-04-13 07:00] LABS: Creatine Kinase 55 U/L (30-135); Magnesium 2.1 mg/dL (1.6-2.3)
[2022-04-13] MEDS: METOPROLOL IR 25 MG TABLET 50 MG PO (07:00)
[2022-04-13 07:02] LABS: HEMOLYSIS 109 (0-50)
[2022-04-13] MEDS: FUROSEMIDE 40 MG/4 ML VIAL IV (07:02)
[2022-04-13 07:03] LABS: Potassium 4.5 mmol/L (3.4-5.1)
[2022-04-13 07:04] LABS: Aspartate Aminotransferase 44 IU/L (14-36)
[2022-04-13 07:10] LABS: INR 1.9 (0.9-1.3); Prothrombin Time 22.4 SECONDS (10.1-12.7)
[2022-04-13 07:12] LABS: NT-proBNP (BNP-Adult 18+) 3600 pg/mL (<450); Troponin I < 0.012 ng/mL (0.01-0.034)
[2022-04-13 07:35] LABS: COVID19 -Nasal RAPID Negative (Negative)
--- NOTE | 2022-04-13 08:43 | PC.NURSE ---
pt states at 0835, after walking back from the restroom and sitting for 5 min she felt like she had a heavy chest again. called for EKG, dr. perez to bedside.
[2022-04-13] MEDS: METOPROLOL IR 25 MG TABLET PO (09:37)
[2022-04-13 10:55] LABS: Creatine Kinase 28 U/L (30-135)
[2022-04-13 11:07] LABS: Troponin I < 0.012 ng/mL (0.01-0.034)
== END 2022-04-13 13:08 | disposition home or self-care (01) ==
PROVIDERS: Emergency Medicine; Emergency Provider Emergency Medicine; PCP Family Medicine
DX: I48.91 Unspecified atrial fibrillation (principal); Z79.01 Long term (current) use of anticoagulants; Z79.899 Other long term (current) drug therapy; Z20.822 Contact with and (suspected) exposure to COVID-19
CPT/HCPCS: 36415; 71045; 80053; 82550; 83735; 83880; 84484; 85025; 85610; 87635; 93005; 96374; 99284; C9803; J1940

== ENCOUNTER → 2022-04-29 07:05 | Outpatient (CLI) | payer MEDICARE, OTHER, SELFPAY ==
[2022-04-29 08:27] LABS: Cholesterol 143 mg/dL (140-199); HDL Cholesterol 46 mg/dL (40-60); LDL Cholesterol Calculated 76 mg/dL (<100); Triglycerides 106 mg/dL (35-150)
== END ==
PROVIDERS: PCP Family Medicine; Referring Provider Internal Medicine Cardiovascular Disease; Visit Provider Internal Medicine Cardiovascular Disease
DX: E78.5 Hyperlipidemia, unspecified (principal)
CPT/HCPCS: 36415; 80061

== ENCOUNTER → 2022-05-27 15:58 | Outpatient (CLI) | payer MEDICARE, OTHER, SELFPAY ==
--- NOTE | 2022-05-27 16:23 | DI.ECHO.S_ITS ---
Interpretation Summary 1) Normal left ventricular size and thickness with mildly reduced systolic function (EF 45-50%). 2) There is a significant dyssynchronous contraction pattern, consistent with a conduction abnormality. 3) Mildly enlarged right ventricle with mildly reduced function. 4) There is mild to moderate mitral regurgitation. 5) There is moderate to severe tricuspid regurgitation. 6) The right ventricular systolic pressure is estimated to be at least 36 mmHg based on an estimated right atrial pressure of 8 mm Hg. 7) No prior Echo available for comparison. Procedure: A two-dimensional transthoracic echocardiogram with color flow and Doppler was performed. The patient was in atrial fibrillation with rapid ventricular response during the exam with a heart rate exceeding 100 bpm. Left Ventricle: The left ventricle is normal in size and wall thickness. The ejection fraction is estimated to be 45-50%. There is a significant dyssynchronous contraction pattern, consistent with a conduction abnormality. Diastolic function could not be accurately assessed due to atrial fibrillation. Right Ventricle: The right ventricle is mildly dilated. Right ventricular systolic function is mildly reduced. Atria: The left atrium is moderately dilated. The right atrium is moderate to severely dilated. There is no Doppler evidence for an interatrial shunt. Mitral Valve: The mitral valve leaflets are slightly calcified. There is mild to moderate mitral regurgitation. Aortic Valve: The aortic valve is trileaflet. The aortic valve is mildly calcified. There is no aortic valve stenosis. There is trace aortic regurgitation. Tricuspid Valve: The tricuspid valve is normal in structure but is abnormal in function. There is moderate to severe tricuspid regurgitation. The right ventricular systolic pressure is estimated to be at least 36 mmHg based on an estimated right atrial pressure of 8 mm Hg. Pulmonic Valve: The pulmonic valve leaflets are thin and pliable; valve motion is normal. There is mild pulmonic regurgitation. Great Vessels: The aortic root is normal size. The ascending aorta is at the upper limits of normal in size. The IVC is dilated (diameter is greater than 2.1 cm) yet it collapses greater than 50% with a sniff. This suggests a right atrial pressure of 8 mm Hg. Pericardium/ Pleura There is no pericardial effusion. There is no pleural effusion. MMode/2D Measurements & Calculations LVIDd: 3.8 cm LVOT diam: 1.9 cm LVIDs: 3.0 cm Ao root diam: 3.3 cm FS: 21.1 % asc Aorta Diam: 4.1 cm EPSS: 0.30 cm Ao Arch Diam (Prox Trans): 3.0 cm IVSd: 1.0 cm LVPWd: 0.90 cm LV bailey. diameter/BSA (cm/m^2): 2.2 LV sys. diameter/BSA (cm/m^2): 1.7 LA A2 area: 19.2 cm2 RA long axis: 6.5 cm LA A4 area: 20.6 cm2 RA area: 27.1 cm2 LA length (vol): 5.4 cm RA vol: 96.8 ml LA vol: 62.1 ml RA : 56.4 ml/m2 LA vol index: 36.2 ml/m2 LVLs ap4: 5.1 cm LVLd ap2: 5.6 cm LVLs ap2: 4.2 cm TAPSE_phl: 1.5 cm Doppler Measurements & Calculations Ao V2 max: 113.3 cm/sec LVOT Max Nitin: 105.8 cm/sec Ao V2 mean: 80.0 cm/sec LV V1 max P.7 mmHg Ao max P.0 mmHg LV V1 VTI: 16.5 cm Ao mean P.0 mmHg ELIF(I,D): 2.7 cm2 Ao V2 VTI: 17.4 cm ELIF(V,D): 2.6 cm2 sev ratio: 0.95 ELIF indexed to BSA (cm^2/m^2): 1.6 MV E max nitin: 110.7 cm/sec TR max nitin: 251.7 cm/sec Med Peak E' Nitin: 7.3 cm/sec TR max P.9 mmHg E/E' med: 15.1 PA V2 max: 68.4 cm/sec Lat Peak E' Nitin: 5.2 cm/sec PA V2 mean: 44.4 cm/sec E/E' lat: 21.5 PA mean P.0 mmHg E/e' average: 18.3 MV dec time: 0.21 sec MVA(VTI): 2.2 cm2 MV V2 mean: 75.9 cm/sec MR VTI: 129.0 cm MV mean P.7 mmHg MV V2 VTI: 21.5 cm SV(LVOT): 46.7 ml AV VR_phl: 0.94 ELIF(VTI)/BSA_phl: 1.6 Reading Physician:12:07 PM
== END ==
PROVIDERS: PCP Family Medicine; Referring Provider Internal Medicine Cardiovascular Disease; Visit Provider Internal Medicine Cardiovascular Disease
DX: R06.09 Other forms of dyspnea (principal); I08.1 Rheumatic disorders of both mitral and tricuspid valves
CPT/HCPCS: 93306

== ENCOUNTER → 2022-05-28 07:01 | Outpatient (CLI) | payer MEDICARE, OTHER, SELFPAY ==
[2022-05-28 07:57] LABS: Add Manual Diff / Slide Review NO; Basophils Absolute Auto 0 /uL (0-100); Basophils Percent Auto 0.7 % (0-2); Eosinophils Absolute Auto 100 /uL (0-450); Eosinophils Percent Auto 2.3 % (2-4); Hematocrit 40.6 % (36-46); Hemoglobin 13.4 g/dL (12.0-16.0); Lymphocytes Absolute Auto 900 /uL (1100-4500); Lymphocytes Percent Auto 21.9 % (25-40); Mean Corpuscular HGB Conc 33.1 % (30-36); Mean Corpuscular Hemoglobin 29.1 PG (26-34); Mean Corpuscular Volume 87.9 fL (80-100); Monocytes Absolute Auto 500 /uL (0-900); Monocytes Percent Auto 11.4 % (3-14); Neutrophils Absolute Auto 2700 /uL (1500-7000); Neutrophils Percent Auto 63.7 % (50-75); Platelet Count 191 X10^3/uL (150-400); Red Blood Cell Count 4.61 X10^6/uL (4.0-5.2); Red Cell Distribution Width 15.3 % (11.6-14.8); White Blood Cell Count 4.2 X10^3/uL (4.5-11.0)
[2022-05-28 08:06] LABS: Hemoglobin A1C% w Est Avg Glu 6.5 % (4.0-6.0)
[2022-05-28 08:46] LABS: Alanine Aminotransferase 36 IU/L (<35); Albumin 4.1 g/dL (3.5-5.0); Albumin Globulin Ratio 1.4 (1.0-2.8); Alkaline Phosphatase 57 U/L (38-126); Aspartate Aminotransferase 30 IU/L (14-36); BUN Creatinine Ratio 26.1 (6-22); Bilirubin Total 0.8 mg/dL (0.2-1.3); Blood Urea Nitrogen 23 mg/dL (7-17); Calcium 8.9 mg/dL (8.4-10.2); Carbon Dioxide 28 mmol/L (22-32); Chloride 101 mmol/L (98-107); Estimated Glomerular Filt Rate > 60 mL/min (>60); Globulin 2.9 g/dL (1.7-4.1); Glucose 134 mg/dL (80-110); HEMOLYSIS < 15 (0-50); Potassium 3.6 mmol/L (3.4-5.1); Sodium 138 mmol/L (137-145)
[2022-05-28 09:07] LABS: Free T4, Direct Thyroxine 1.14 ng/dL (0.78-2.19)
[2022-05-28 09:21] LABS: Thyroid Stimulating Hormone 3.73 uIU/mL (0.47-4.68)
[2022-05-28 18:23] LABS: BUN Creatinine Ratio 25.6 (6-22); Blood Urea Nitrogen 23 mg/dL (7-17); Calcium 9.2 mg/dL (8.4-10.2); Carbon Dioxide 28 mmol/L (22-32); Chloride 99 mmol/L (98-107); Estimated Glomerular Filt Rate > 60 mL/min (>60); Glucose 98 mg/dL (80-110); HEMOLYSIS < 15 (0-50); Potassium 3.6 mmol/L (3.4-5.1); Sodium 138 mmol/L (137-145)
[2022-05-28 18:29] LABS: NT-proBNP (BNP-Adult 18+) 2480 pg/mL (<450)
== END ==
PROVIDERS: PCP Family Medicine; Referring Provider Internal Medicine Cardiovascular Disease; Visit Provider Internal Medicine Cardiovascular Disease
DX: I50.32 Chronic diastolic (congestive) heart failure (principal); I48.91 Unspecified atrial fibrillation; R73.03 Prediabetes; E78.2 Mixed hyperlipidemia; E03.9 Hypothyroidism, unspecified; R06.09 Other forms of dyspnea
CPT/HCPCS: 36415; 80048; 80053; 83036; 83880; 84439; 84443; 85025

== ENCOUNTER → 2022-05-28 15:55 | Outpatient (CLI) | payer MEDICARE, OTHER, SELFPAY ==
--- NOTE | 2022-05-28 15:59 | DI.RAD.S_ITS ---
PROCEDURE: XR CHEST 2V INDICATIONS: Dyspnea TECHNIQUE: 2 views of the chest were acquired. COMPARISON: [facility], EC, EC ECHO DOPPLER COMPLETE, 05/27/2022, 16:23. [facility], CR, XR CHEST 1V, 04/09/2022, 16:07. [facility], CR, XR CHEST 1V, 04/13/2022, 6:41. FINDINGS: Surgical changes and devices: None. Lungs and pleura: Slightly prominent pulmonary vascularity. Left basilar atelectasis. No pleural effusions or pneumothorax. Mediastinum: Mediastinal contours are normal. Heart size is mildly increased. Bones and chest wall: No suspicious bony abnormalities. Soft tissues appear unremarkable. IMPRESSION: 1. Mild cardiomegaly and increased pulmonary vascularity suggesting mild CHF. Dictated by: Edmundo Jarvis M.D. on 05/31/2022 at 14:16 Approved by: Edmundo Jarvis M.D. on 05/31/2022 at 15:04
== END ==
PROVIDERS: PCP Family Medicine; Referring Provider Internal Medicine Cardiovascular Disease; Visit Provider Internal Medicine Cardiovascular Disease
DX: R06.09 Other forms of dyspnea (principal); I50.32 Chronic diastolic (congestive) heart failure; E03.9 Hypothyroidism, unspecified; E78.2 Mixed hyperlipidemia; I48.91 Unspecified atrial fibrillation; R73.03 Prediabetes
CPT/HCPCS: 36415; 71046; 80048; 80053; 83036; 83880; 84439; 84443; 85025

== ENCOUNTER → 2022-07-13 07:05 | Outpatient (CLI) | payer MEDICARE, OTHER, SELFPAY ==
[2022-07-13 08:24] LABS: BUN Creatinine Ratio 27.2 (6-22); Blood Urea Nitrogen 22 mg/dL (7-17); Calcium 8.9 mg/dL (8.4-10.2); Carbon Dioxide 24 mmol/L (22-32); Chloride 104 mmol/L (98-107); Estimated Glomerular Filt Rate > 60 mL/min (>60); Glucose 137 mg/dL (80-110); HEMOLYSIS < 15 (0-50); Potassium 4.3 mmol/L (3.4-5.1); Sodium 137 mmol/L (137-145)
[2022-07-13 08:29] LABS: NT-proBNP (BNP-Adult 18+) 3610 pg/mL (<450)
== END ==
PROVIDERS: PCP Family Medicine; Referring Provider Internal Medicine Cardiovascular Disease; Visit Provider Internal Medicine Cardiovascular Disease
DX: R06.09 Other forms of dyspnea (principal)
CPT/HCPCS: 36415; 80048; 83880

== ENCOUNTER 2022-07-15 13:23 | Observation (INO) | payer MEDICARE, OTHER, SELFPAY ==
[2022-07-15] VITALS (23 sets, daily range): BP systolic 103–143; BP diastolic 56–113; PULSE 61–110; RESP 13–38; TEMP 36.4–36.8; O2SAT 92–98; BMI 28.3
--- NOTE | 2022-07-15 13:31 | DI.RAD.S_ITS ---
PROCEDURE: XR CHEST 1V INDICATIONS: chest pain TECHNIQUE: One view of the chest was acquired. COMPARISON: , CR, XR CHEST 2V, 05/28/2022, 16:26. , CR, XR CHEST 1V, 04/13/2022, 6:41. FINDINGS: Surgical changes and devices: None. Lungs and pleura: Lungs are clear. No pleural effusions or pneumothorax. Mediastinum: Mediastinal contours appear normal. Heart size is normal. Bones and chest wall: No suspicious bony lesions. Overlying soft tissues appear unremarkable. IMPRESSION: No acute cardiopulmonary disease. Dictated by: Edmundo Jarvis M.D. on 07/15/2022 at 15:01 Approved by: Edmundo Jarvis M.D. on 07/15/2022 at 15:02
[2022-07-15 13:47] LABS: Add Manual Diff / Slide Review NO; Basophils Absolute Auto 0 /uL (0-100); Basophils Percent Auto 0.4 % (0-2); Eosinophils Absolute Auto 0 /uL (0-450); Eosinophils Percent Auto 0.9 % (2-4); Hematocrit 46.1 % (36-46); Hemoglobin 14.9 g/dL (12.0-16.0); Lymphocytes Absolute Auto 800 /uL (1100-4500); Lymphocytes Percent Auto 16.7 % (25-40); Mean Corpuscular HGB Conc 32.4 % (30-36); Mean Corpuscular Hemoglobin 28.8 PG (26-34); Mean Corpuscular Volume 88.9 fL (80-100); Monocytes Absolute Auto 600 /uL (0-900); Monocytes Percent Auto 11.1 % (3-14); Neutrophils Absolute Auto 3600 /uL (1500-7000); Neutrophils Percent Auto 70.9 % (50-75); Platelet Count 238 X10^3/uL (150-400); Red Blood Cell Count 5.18 X10^6/uL (4.0-5.2); Red Cell Distribution Width 15.5 % (11.6-14.8); White Blood Cell Count 5.1 X10^3/uL (4.5-11.0)
[2022-07-15 13:59] LABS: Alanine Aminotransferase 35 IU/L (<35); Albumin 4.5 g/dL (3.5-5.0); Albumin Globulin Ratio 1.6 (1.0-2.8); Alkaline Phosphatase 54 U/L (38-126); Aspartate Aminotransferase 39 IU/L (14-36); BUN Creatinine Ratio 27.2 (6-22); Bilirubin Total 0.5 mg/dL (0.2-1.3); Blood Urea Nitrogen 22 mg/dL (7-17); Calcium 8.9 mg/dL (8.4-10.2); Carbon Dioxide 23 mmol/L (22-32); Chloride 101 mmol/L (98-107); Creatine Kinase 43 U/L (30-135); Estimated Glomerular Filt Rate > 60 mL/min (>60); Globulin 2.8 g/dL (1.7-4.1); Glucose 111 mg/dL (80-110); HEMOLYSIS < 15 (0-50); Lipase 163 U/L (23-300); Potassium 4.3 mmol/L (3.4-5.1); Sodium 135 mmol/L (137-145); Total Protein 7.3 g/dL (6.3-8.2)
[2022-07-15 14:01] LABS: D Dimer < 215 ng/ml (<500)
[2022-07-15 14:11] LABS: NT-proBNP (BNP-Adult 18+) 3520 pg/mL (<450); Troponin I < 0.012 ng/mL (0.01-0.034)
[2022-07-15 14:16] LABS: Procalcitonin 0.05 ng/mL (<0.5)
--- NOTE | 2022-07-15 14:20 | ED_ITS ---
HPI - Chest Pain General Chief Complaint: Chest Pain Stated Complaint: Chest tightness/SOB,AFIB (hx same) Time Seen by Provider: 07/15/22 13:30 Source: patient Mode of arrival: EMS Limitations: no limitations History of Present Illness HPI narrative: 87-year-old female former smoker with AFib on anticoagulation and hypertension presents with a chief complaint of a few days of increasing frequency, severity and duration chest pressure with exertion. She states that today she had the most intense episode of chest pressure and squeezing which also lasted the longest, she states that it went away just after being assessed by the paramedics. She denies recent travel, change in medications or dietary change. She denies any fever or chills and has had no nausea or vomiting. She states that she is currently having no pain. She does admit to orthopnea and perhaps she has a bit of increased swelling in her legs. Related Data Home Medications Medication Instructions Recorded Confirmed acetaminophen 500 mg tablet 1,000 mg PO Q6H PRN Pain (Scale 03/21/19 07/15/22 (Tylenol Extra Strength) Score 1-3) esomeprazole magnesium 20 mg 20 mg PO DAILY 07/10/19 07/15/22 capsule,delayed release (Nexium) metoprolol succinate 25 mg 100 mg PO BID 07/15/22 07/15/22 tablet,extended release 24 hr Previous Rx's Medication Instructions Recorded rosuvastatin 5 mg tablet 2.5 mg PO DAILY #45 tabs 04/21/21 albuterol sulfate 90 mcg/actuation 2 puff inhalation Q6H PRN 08/23/21 aerosol inhaler shortness of breath or wheezing #8.5 grams furosemide 20 mg tablet (Lasix) 20 mg PO DAILY PRN edema #30 tabs 04/13/22 spironolactone 25 mg tablet 12.5 mg PO DAILY #30 tabs 04/13/22 rivaroxaban 10 mg tablet (Xarelto) See Rx Instructions .Route 04/26/22 .COMPLEX #90 tabs thyroid (pork) 30 mg tablet See Rx Instructions .Route 06/16/22 ([place] Thyroid) .COMPLEX #90 tabs Allergies Allergy/AdvReac Type Severity Reaction Status Date / Time levothyroxine sodium Allergy Mild itching Verified 07/15/22 13:41 [From Synthroid] liothyronine Allergy Mild Itching Verified 07/15/22 13:41 diltiazem Allergy dizziness, Verified 07/15/22 13:41 nausea, triamterene AdvReac Mild Weakness, Verified 07/15/22 13:41 dizzy spells codeine AdvReac dizziness Verified 07/15/22 13:41 Review of Systems Review of Systems Narrative: GENERAL: Denies chills, fatigue, malaise, fever, sweats. HEENT: Denies sinus pain, ear pain, sore throat, difficulty swallowing, dizziness. RESPIRATORY: see HPI CARDIOVASCULAR: see hPI GASTROINTESTINAL: Denies nausea, vomiting, abdominal pain, diarrhea, constipation, melena. : Denies dysuria, frequency, incontinence, hematuria, urinary retention. MUSCULOSKELETAL: denies weakness, joint pain, or bony pain SKIN: Denies rash, skin lesions, or other NEUROLOGIC: Denies weakness, headache, numbness, change in speech, confusion, seizures, incoordination. PSYCHIATRIC: No concerning psychosocial issues. 12 point review of systems is negative except for those stated above Patient History Medical History Atrial fibrillation (~2016) Basal cell carcinoma Chicken pox (~194) Dizzy GERD (gastroesophageal reflux disease) (~1999) Hearing loss (~1994) Hiatal hernia History of urinary incontinence (~2015) Hypothyroidism Insomnia Measles (~194) Mumps (~1949) Osteoarthritis (~1979) Osteopenia (~1979) Prediabetes Preventative health care Retinal detachment (~1993) Rheumatic fever Rubella (~1949) Seasonal allergies (~1949) Tinnitus (~1959) Type 2 diabetes mellitus Vertigo (~1959) Vision disorder Surgical History Anesthesia History of eye surgery History of foot surgery (~1986) History of hysterectomy (~1985) History of knee surgery History of surgery History of tonsillectomy (~193) History of total left knee replacement Status post right knee replacement Family History Father Cancer Mother Diabetes mellitus History of heart disease Stroke Social History household members: family Smoking Status: Former smoker Tobacco: How many years used: 20 quit status: has quit before alcohol intake: current substance use type: marijuana Smoking Status: Former smoker alcohol intake frequency: a few times a week Substance Use Type: does not use Exam Narrative Exam Narrative: GENERAL: [Using] year old patient appears stated age. Well-developed patient, in mild distress. HEAD: Atraumatic. Normocephalic. EYES: Pupils equal round and reactive. Extraocular motions intact. No scleral icterus. No injection or drainage. ENT: Nose without bleeding, purulent drainage. Throat without erythema, tonsillar hypertrophy or exudate. Airway patent. NECK: Trachea midline. Non tender CARDIOVASCULAR: Irregular rate and rhythm rhythm without murmurs, gallops, or rubs. RESPIRATORY: No significant increased work of breathing or hypoxemia, decreased lung sounds throughout with prolonged expiratory phase, faint crackles bilateral bases GASTROINTESTINAL: Abdomen soft, non-tender, nondistended. EXTREMITIES: 1+ pitting edema bilateral lower extremities. BACK: Nontender without deformity or crepitance. No flank tenderness. NEURO: AOx3. SKIN: No rash or erythema of visible areas Initial Vital Signs Initial Vital Signs: Vital Signs Temperature 98.2 F 07/15/22 13:20 Pulse Rate 87 07/15/22 13:20 Respiratory Rate 13 07/15/22 13:20 Blood Pressure 134/89 07/15/22 13:20 Pulse Oximetry 97 07/15/22 13:20 Oxygen Delivery Method 07/15/22 13:20 Course Orders Ordered: Acetaminophen (Acetaminophen 325 Mg Tablet) 650 mg PO Q6H PRN PRN Reason: Fever/Mild Pain (1-3) Last Admin: 07/16/22 11:38 Dose: 650 mg Documented By: Admin: 07/16/22 03:02 Dose: 650 mg Documented By: ALFONSO Aspirin (Aspirin Ec 81 Mg Tablet) 81 mg PO DAILY [facility] Last Admin: 07/16/22 10:34 Dose: Not Given Documented By: HCW Atorvastatin Calcium (Atorvastatin 20 Mg Tablet) 40 mg PO BEDTIME [facility] Last Admin: 07/15/22 21:57 Dose: 40 mg Documented By: ALFONSO Furosemide (Furosemide 40 Mg/4 Ml Vial) 40 mg IV Q12HR [facility] Last Admin: 07/16/22 11:39 Dose: 40 mg Documented By: Admin: 07/16/22 00:57 Dose: 40 mg Documented By: ALFONSO Naloxone HCl (Naloxone 0.4 Mg/Ml Vial) 0.2 mg IV Q2MIN PRN PRN Reason: Opiate Reversal Ondansetron HCl (Ondansetron 4 Mg/2 Ml Inj) 4 mg IV Q8HR PRN PRN Reason: Nausea And Vomiting Rivaroxaban (Rivaroxaban 10 Mg Tablet) 10 mg PO DAILY [facility] Last Admin: 07/16/22 10:34 Dose: 10 mg Documented By: HCW Discontinued Medications Dextrose (Dextrose 50 % In Water 25 Gm/50 Ml Syringe) 25 gm IV PRN PRN PRN Reason: Hypoglycemia Furosemide (Furosemide 40 Mg/4 Ml Vial) 40 mg IV NOW ONE Stop: 07/15/22 14:40 Last Admin: 07/15/22 15:06 Dose: 40 mg Documented By: CTS Sodium Chloride (Normal Saline 0.9%) 1,000 mls @ 150 mls/hr IV CONT [facility] Last Admin: 07/15/22 14:25 Dose: Not Given Documented By: CTS Insulin Human Lispro (Insulin Lispro 100 Unit/Ml 3ml Vial) 0 unit SUBCUT ACHS [facility]; Protocol Metoprolol Succinate (Metoprolol Er 50 Mg Tablet) 100 mg PO NOW ONE Stop: 07/15/22 19:16 Last Admin: 07/15/22 20:12 Dose: Not Given Documented By: MW Nitroglycerin (Nitroglycerin Oint 1 Inch/Gm Oint...G.) 1 inch TOP NOW ONE Stop: 07/15/22 15:29 Last Admin: 07/15/22 15:45 Dose: 1 inch Documented By: CTS Potassium Chloride (Potassium Chloride 20 Meq Tab) 40 meq PO NOW ONE Stop: 07/16/22 11:31 Last Admin: 07/16/22 11:38 Dose: 40 meq Documented By: KDK Consultations Consultation #1: Discussion with on-call communications representative, Dr. Garcia, recommends diuresis nitro paste, admission with echo and stress test Vital Signs Vital signs: Vital Signs - 8 hr 07/15/22 13:20 07/15/22 13:30 07/15/22 13:30 Temperature 98.2 F Pulse Rate 87 80 Respiratory Rate 13 18 Blood Pressure 134/89 134/89 Pulse Oximetry 97 95 Oxygen Delivery Method Room Air 07/15/22 14:00 07/15/22 15:45 Temperature Pulse Rate 77 76 Respiratory Rate 18 Blood Pressure 118/86 Pulse Oximetry 98 Oxygen Delivery Method MDM - Chest Pain Lab Data 07/15/22 13:38 07/15/22 13:38 Labs: Lab Results 07/15/22 07/15/22 07/15/22 Range/Units 13:38 13:38 13:38 WBC 5.1 (4.5-11.0) X10^3/uL RBC 5.18 (4.0-5.2) X10^6/uL Hgb 14.9 (12.0-16.0) g/dL Hct 46.1 H (36-46) % MCV 88.9 (80-100) fL MCH 28.8 (26-34) PG MCHC 32.4 (30-36) % RDW 15.5 H (11.6-14.8) % Plt Count 238 (150-400) X10^3/uL Neut % (Auto) 70.9 (50-75) % Lymph % (Auto) 16.7 L (25-40) % [place] % (Auto) 11.1 (3-14) % Eos % (Auto) 0.9 L (2-4) % Baso % (Auto) 0.4 (0-2) % Neut # (Auto) 3600 (7344-3808) /uL Lymph # (Auto) 800 L (7661-7318) /uL [place] # (Auto) 600 (0-900) /uL Eos # (Auto) 0 (0-450) /uL Baso # (Auto) 0 (0-100) /uL D-Dimer < 215 (<500) ng/ml Sodium (137-145) mmol/L Potassium (3.4-5.1) mmol/L Chloride (98-107) mmol/L Carbon Dioxide (22-32) mmol/L BUN (7-17) mg/dL Creatinine (0.52-1.04) mg/dL Estimated GFR (>60) mL/min BUN/Creatinine Ratio (6-22) Glucose (80-110) mg/dL Calcium (8.4-10.2) mg/dL Total Bilirubin (0.2-1.3) mg/dL AST (14-36) IU/L ALT (<35) IU/L Alkaline Phosphatase (38-126) U/L Total Creatine Kinase (30-135) U/L CK-MB (CK-2) CK-MB (CK-2) Rel Index Troponin I (0.01-0.034) ng/mL NT-Pro-B Natriuret Pep (<450) pg/mL Total Protein (6.3-8.2) g/dL Albumin (3.5-5.0) g/dL Globulin (1.7-4.1) g/dL Albumin/Globulin Ratio (1.0-2.8) Lipase (23-300) U/L Procalcitonin 0.05 (<0.5) ng/mL Urine Color Urine Appearance Urine pH (4.5-8.0) Ur Specific [place] (1.000-1.035) Urine Protein (Negative) Urine Glucose (UA) (Negative) g/dL Urine Ketones (NEGATIVE) Urine Occult Blood (Negative) Urine Nitrate (Negative) Urine Bilirubin (NEGATIVE) Urine Urobilinogen (0.2) E.U./dL Ur Leukocyte Esterase (NEGATIVE) Urine RBC (0-5/HPF) Urine WBC (0-5/HPF) Ur Squamous Epith Cells (0-5/HPF) Ur Transition Epith Cell (0-5/HPF) Urine Bacteria (None) Hyaline Casts (None) Ur Culture Indicated? 07/15/22 07/15/22 Range/Units 13:38 15:40 WBC (4.5-11.0) X10^3/uL RBC (4.0-5.2) X10^6/uL Hgb (12.0-16.0) g/dL Hct (36-46) % MCV (80-100) fL MCH (26-34) PG MCHC (30-36) % RDW (11.6-14.8) % Plt Count (150-400) X10^3/uL Neut % (Auto) (50-75) % Lymph % (Auto) (25-40) % [place] % (Auto) (3-14) % Eos % (Auto) (2-4) % Baso % (Auto) (0-2) % Neut # (Auto) (2856-3565) /uL Lymph # (Auto) (2492-5074) /uL [place] # (Auto) (0-900) /uL Eos # (Auto) (0-450) /uL Baso # (Auto) (0-100) /uL D-Dimer (<500) ng/ml Sodium 135 L (137-145) mmol/L Potassium 4.3 (3.4-5.1) mmol/L Chloride 101 (98-107) mmol/L Carbon Dioxide 23 (22-32) mmol/L BUN 22 H (7-17) mg/dL Creatinine 0.81 (0.52-1.04) mg/dL Estimated GFR > 60 (>60) mL/min BUN/Creatinine Ratio 27.2 H (6-22) Glucose 111 H (80-110) mg/dL Calcium 8.9 (8.4-10.2) mg/dL Total Bilirubin 0.5 (0.2-1.3) mg/dL AST 39 H (14-36) IU/L ALT 35 H (<35) IU/L Alkaline Phosphatase 54 (38-126) U/L Total Creatine Kinase 43 (30-135) U/L CK-MB (CK-2) TNP CK-MB (CK-2) Rel Index TNP Troponin I < 0.012 (0.01-0.034) ng/mL NT-Pro-B Natriuret Pep 3520 H (<450) pg/mL Total Protein 7.3 (6.3-8.2) g/dL Albumin 4.5 (3.5-5.0) g/dL Globulin 2.8 (1.7-4.1) g/dL Albumin/Globulin Ratio 1.6 (1.0-2.8) Lipase 163 (23-300) U/L Procalcitonin (<0.5) ng/mL Urine Color Yellow Urine Appearance Clear Urine pH 5.0 (4.5-8.0) Ur Specific [place] 1.010 (1.000-1.035) Urine Protein Negative (Negative) Urine Glucose (UA) 3+ H (Negative) g/dL Urine Ketones Negative (NEGATIVE) Urine Occult Blood Trace-intact (Negative) Urine Nitrate Negative (Negative) Urine Bilirubin Negative (NEGATIVE) Urine Urobilinogen 0.2 (0.2) E.U./dL Ur Leukocyte Esterase Negative (NEGATIVE) Urine RBC 1-5/hpf (0-5/HPF) Urine WBC 1-5/hpf (0-5/HPF) Ur Squamous Epith Cells 0-1 /hpf (0-5/HPF) Ur Transition Epith Cell 0-1/hpf (0-5/HPF) Urine Bacteria None seen (None) Hyaline Casts 1-5/lpf (None) Ur Culture Indicated? Cult not indicated MDM Narrative Medical decision making narrative: CC: 87-year-old female former smoker with history of AFib and hypertension with exertional chest pressure and increasing shortness of breath over the past few days Complicating co-morbidities: Age, AFib, for smoker, hypertension Data collected from: Patient Medical records reviewed: Prior notes reviewed in our EMR Differential considered, but not limited to: Unstable angina, symptomatic AFib, acute CHF versus other Exam documented above, pertinent findings include: No significant work of breathing, faint crackles bilateral bases, heart rate irregular though not tachycardic, 1+ pitting edema bilateral lower extremities Lab Test results independently reviewed as above. Pertinent findings: No significant leukocytosis or left shift, Independently reviewed EKG as above Imaging studies independently reviewed: No acute findings Consultations: Cardiology, hospitalist Treatments:lasix, nitro Discussion: Patient with history concerning for unstable angina, thankfully no obvious occlusive findings on EKG, initial troponin negative and no pain and department. Patient will require hospitalization for ongoing evaluation and treatment, cardiology recommends admission with diuresis, echocardiogram and stress test Discharge Plan Departure Patient Disposition: Admitted as Observation Clinical Impression: Chest pain, Atrial fibrillation, Acute CHF Admit Date/Time: 07/15/22 16:50 Admit Provider: Chidi Portillo
[2022-07-15] MEDS: FUROSEMIDE 40 MG/4 ML VIAL IV (15:06)
[2022-07-15] MEDS: NITROGLYCERIN OINT 1 INCH/GM OINT...G. TOP (15:45)
[2022-07-15 16:02] LABS: Appearance Urine UA CLEAR; Bilirubin Urine UA NEGATIVE (NEGATIVE); Color Urine UA YELLOW; Glucose Urine UA 3+ g/dL (Negative); Ketones Urine UA NEGATIVE (NEGATIVE); Leukocyte Esterase Urine UA NEGATIVE (NEGATIVE); Nitrite Urine UA NEGATIVE (Negative); Occult Blood Urine UA TRACE-INTACT (Negative); Protein Urine UA NEGATIVE (Negative); Urobilinogen Urine UA 0.2 E.U./dL (0.2)
[2022-07-15 16:21] LABS: Squamous Epithelial Cell Urine 0-1 /HPF (0-5/HPF); Transitional Epi Cells Urine 0-1/HPF (0-5/HPF)
[2022-07-15 16:22] LABS: Bacteria Urine None Seen; Culture Indicated Urine Cult Not Indicated; Hyaline Casts Urine 1-5/LPF; RBC Urine 1-5/HPF (0-5/HPF); WBC Urine 1-5/HPF (0-5/HPF)
[2022-07-15 18:17] LABS: COVID19 -Nasal RAPID Negative (Negative)
--- NOTE | 2022-07-15 18:31 | P.HP_ITS ---
History of Present Illness History of Present Illness Date Patient Seen: 07/15/22 Time Patient Seen: 18:00 Chief complaint: Chest tightness/SOB,AFIB (hx same) Narrative: Ms. Suarez is an 87W with PMH afib, GERD, hypothyoridism, Type 2 Diabetes who presents to the hospital with progressive shortness of breath and today with chest tightness. She has noted for weeks that she has shortness of breath primarily with exertion. She has noted she has lower leg swelling. She has atrial fibrillation and has not noted palpitations. Today she noted she has having a band like chest pain and pain in her left shoulder. She has no fevers/chills, or cough. She has noted shortness of breath with lying flat. In the ED workup was done, vitals notable for afebrile, heart rate in the 80s, blood pressure 130s/80s. Labs notable for WBC 5.1, hgb 14.9, plts 238. Creatinine 0.81. D-dimer negative. Procal 0.05. Trop negative. BNP 3520. EKG showed left bundle branch and atrial fibrillation. Chest xray showed no acute process. She was given aspirin and lasix and admitted for further treatment. Patient History Medical History Atrial fibrillation (~2017) Basal cell carcinoma Chicken pox (~194) Dizzy GERD (gastroesophageal reflux disease) (~1999) Hearing loss (~1994) Hiatal hernia History of urinary incontinence (~2015) Hypothyroidism Insomnia Measles (~194) Mumps (~1949) Osteoarthritis (~1979) Osteopenia (~1979) Prediabetes Preventative health care Retinal detachment (~1993) Rheumatic fever Rubella (~1949) Seasonal allergies (~1949) Tinnitus (~1959) Type 2 diabetes mellitus Vertigo (~1959) Vision disorder Surgical History Anesthesia History of eye surgery History of foot surgery (~1986) History of hysterectomy (~1985) History of knee surgery History of surgery History of tonsillectomy (~193) History of total left knee replacement Status post right knee replacement Family & Social History Family History Father Cancer Mother Diabetes mellitus History of heart disease Stroke Safety & Behavioral: Feels Safe in Current Yes Environment Been Physically Hurt or No Threatened By a Person Tobacco & Substance use: Smoking Status Former smoker alcohol intake frequency a few times a week Substance Use Type does not use Meds Home Medications and Allergies Home Medications Medication Instructions Recorded Confirmed Type fluticasone propionate 50 1 spray intranasal DAILY 09/19/18 04/09/22 History mcg/actuation nasal spray,suspension acetaminophen 500 mg tablet 1,000 mg PO Q6H PRN Pain (Scale 03/21/19 07/15/22 History (Tylenol Extra Strength) Score 1-3) esomeprazole magnesium 20 mg 20 mg PO DAILY 07/10/19 07/15/22 History capsule,delayed release (Nexium) rosuvastatin 5 mg tablet 2.5 mg PO DAILY #45 tabs 04/21/21 07/15/22 Rx albuterol sulfate 90 mcg/actuation 2 puff inhalation Q6H PRN 08/23/21 07/15/22 Rx aerosol inhaler shortness of breath or wheezing #8.5 grams furosemide 20 mg tablet (Lasix) 20 mg PO DAILY PRN edema #30 tabs 04/13/22 07/15/22 Rx spironolactone 25 mg tablet 12.5 mg PO DAILY #30 tabs 04/13/22 07/15/22 Rx rivaroxaban 10 mg tablet (Xarelto) See Rx Instructions .Route 04/26/22 07/15/22 Rx .COMPLEX #90 tabs thyroid (pork) 30 mg tablet See Rx Instructions .Route 06/16/22 07/15/22 Rx ([place] Thyroid) .COMPLEX #90 tabs metoprolol succinate 25 mg 100 mg PO BID 07/15/22 07/15/22 History tablet,extended release 24 hr Allergies Allergy/AdvReac Type Severity Reaction Status Date / Time levothyroxine sodium Allergy Mild itching Verified 07/15/22 13:41 [From Synthroid] liothyronine Allergy Mild Itching Verified 07/15/22 13:41 diltiazem Allergy dizziness, Verified 07/15/22 13:41 nausea, triamterene AdvReac Mild Weakness, Verified 07/15/22 13:41 dizzy spells codeine AdvReac dizziness Verified 07/15/22 13:41 Review of Systems Review of Systems Narrative: 14 systems reviewed and negative aside from what is noted in HPI Exam Vital Signs (past 8 hours): - 07/15/22 13:20 07/15/22 13:30 07/15/22 13:30 Temperature 98.2 F Pulse Rate 87 80 Respiratory Rate 13 18 Blood Pressure 134/89 134/89 Pulse Oximetry 97 95 Oxygen Delivery Method Room Air 07/15/22 14:00 07/15/22 15:45 07/15/22 14:15 Temperature Pulse Rate 77 76 Respiratory Rate 18 Blood Pressure 118/86 135/107 H Pulse Oximetry 98 Oxygen Delivery Method 07/15/22 14:15 07/15/22 14:30 07/15/22 14:30 Temperature Pulse Rate 79 83 Respiratory Rate 26 H 30 H Blood Pressure 143/113 H Pulse Oximetry 96 98 Oxygen Delivery Method 07/15/22 15:00 07/15/22 15:01 07/15/22 15:01 Temperature Pulse Rate 80 76 Respiratory Rate 38 H 26 H Blood Pressure 107/72 Pulse Oximetry 94 92 Oxygen Delivery Method 07/15/22 15:38 07/15/22 15:43 07/15/22 15:43 Temperature Pulse Rate 110 H 88 Respiratory Rate 19 21 Blood Pressure 118/86 Pulse Oximetry Oxygen Delivery Method 07/15/22 16:00 07/15/22 16:15 07/15/22 16:15 Temperature Pulse Rate 79 80 Respiratory Rate 25 H 19 Blood Pressure 127/81 Pulse Oximetry 97 95 Oxygen Delivery Method 07/15/22 16:30 07/15/22 16:30 07/15/22 16:33 Temperature Pulse Rate 79 80 Respiratory Rate 17 16 Blood Pressure 115/87 Pulse Oximetry 96 97 Oxygen Delivery Method 07/15/22 16:33 07/15/22 17:00 07/15/22 17:01 Temperature Pulse Rate 84 Respiratory Rate 23 Blood Pressure 115/72 113/69 Pulse Oximetry 97 Oxygen Delivery Method 07/15/22 17:01 07/15/22 17:27 07/15/22 17:27 Temperature Pulse Rate 84 71 Respiratory Rate 24 Blood Pressure 115/78 Pulse Oximetry 97 Oxygen Delivery Method 07/15/22 17:30 07/15/22 17:30 Temperature Pulse Rate 82 Respiratory Rate 18 Blood Pressure 134/85 Pulse Oximetry 95 Oxygen Delivery Method Oxygen Delivery Method Room Air Narrative Exam Narrative: GEN: mild respiratory distress with activity HEENT: moist mucous membranes, PERRL NECK: trachea midline, no jvd PULM: clear bilaterally, no wheezes, rhonchi rales CV: irregular, no murmurs ABD: soft, nontender, nondistended no oragnomegaly EXT: warm and well perfused 1+ edema at ankles NEURO: awake, alert, oriented, no focal deficits Objective Labs 07/15/22 13:38 07/15/22 13:38 Labs: Laboratory Results - last 24 hr 07/15/22 07/15/22 07/15/22 13:38 13:38 13:38 WBC 5.1 RBC 5.18 Hgb 14.9 Hct 46.1 H MCV 88.9 MCH 28.8 MCHC 32.4 RDW 15.5 H Plt Count 238 Neut % (Auto) 70.9 Lymph % (Auto) 16.7 L [place] % (Auto) 11.1 Eos % (Auto) 0.9 L Baso % (Auto) 0.4 Neut # (Auto) 3600 Lymph # (Auto) 800 L [place] # (Auto) 600 Eos # (Auto) 0 Baso # (Auto) 0 D-Dimer < 215 Sodium Potassium Chloride Carbon Dioxide BUN Creatinine Estimated GFR BUN/Creatinine Ratio Glucose Calcium Total Bilirubin AST ALT Alkaline Phosphatase Total Creatine Kinase CK-MB (CK-2) CK-MB (CK-2) Rel Index Troponin I NT-Pro-B Natriuret Pep Total Protein Albumin Globulin Albumin/Globulin Ratio Lipase Procalcitonin 0.05 Urine Color Urine Appearance Urine pH Ur Specific [place] Urine Protein Urine Glucose (UA) Urine Ketones Urine Occult Blood Urine Nitrate Urine Bilirubin Urine Urobilinogen Ur Leukocyte Esterase Urine RBC Urine WBC Ur Squamous Epith Cells Ur Transition Epith Cell Urine Bacteria Hyaline Casts Ur Culture Indicated? SARS-CoV-2 (PCR) 07/15/22 07/15/22 07/15/22 13:38 15:40 17:52 WBC RBC Hgb Hct MCV MCH MCHC RDW Plt Count Neut % (Auto) Lymph % (Auto) [place] % (Auto) Eos % (Auto) Baso % (Auto) Neut # (Auto) Lymph # (Auto) [place] # (Auto) Eos # (Auto) Baso # (Auto) D-Dimer Sodium 135 L Potassium 4.3 Chloride 101 Carbon Dioxide 23 BUN 22 H Creatinine 0.81 Estimated GFR > 60 BUN/Creatinine Ratio 27.2 H Glucose 111 H Calcium 8.9 Total Bilirubin 0.5 AST 39 H ALT 35 H Alkaline Phosphatase 54 Total Creatine Kinase 43 CK-MB (CK-2) TNP CK-MB (CK-2) Rel Index TNP Troponin I < 0.012 NT-Pro-B Natriuret Pep 3520 H Total Protein 7.3 Albumin 4.5 Globulin 2.8 Albumin/Globulin Ratio 1.6 Lipase 163 Procalcitonin Urine Color Yellow Urine Appearance Clear Urine pH 5.0 Ur Specific [place] 1.010 Urine Protein Negative Urine Glucose (UA) 3+ H Urine Ketones Negative Urine Occult Blood Trace-intact Urine Nitrate Negative Urine Bilirubin Negative Urine Urobilinogen 0.2 Ur Leukocyte Esterase Negative Urine RBC 1-5/hpf Urine WBC 1-5/hpf Ur Squamous Epith Cells 0-1 /hpf Ur Transition Epith Cell 0-1/hpf Urine Bacteria None seen Hyaline Casts 1-5/lpf Ur Culture Indicated? Cult not indicated SARS-CoV-2 (PCR) Negative Assessment & Plan Assessment & Plan narrative: 1. Acute chest pain and shortness of breath -with elevated bnp, orthopnea, lower extremity edmea concerning for acute CHF exacerbation -continue lasix -ECHO to evaluate further for EF and valve function -trend troponins -ordered aspirin and statin -plan for nuclear stress test 2. Atrial fibrillation -continue xarelto -hold metoprolol for now 3. Type 2 Diabetes -insulin sliding scale 4. Hypothyroidism -continue thyroid medication I have discussed plan with the patient. I have discussed plan of care with the ED physician and bedside nurse. I have reviewed labs and EKG and chest xray. CODE: Full Proxy: Priscilla Rose, daughter Time Spent With Patient Critical Care time: I spent a total of [] minutes of critical care time on this patient's care today; this time is exclusive of procedural time. Quality MIPS - Meds 'Current medications' to include all prescriptions, [id number] products, herbals, cannabis/cannabidiol products, and vitamin/mineral/dietary (nutritional) supplements. I have utilized all available resources to obtain, update, or review the patien t?s current medications. [If Yes, STOP here]: Yes
--- NOTE | 2022-07-15 18:48 | DI.ECHO.S_ITS ---
[facility]---------+ [facility] +---------+ : : [address] : : : : [id number] : : : : Phone: [phone] Echocardiogram Report + + :Name: YOLIE GREGG Study Date: 07/16/2022 Height: 62 in : :[facility] ReadingLocation: Weight: 342 lb: : Gender: Female BSA: 2.4 m2 : :: 1935 Age: 87 yrs BP: 90/63 mmHg: :Reason For Study: Chest Pain, evaluate for wall motion : :abnormalities : :Ordering Physician: NAOMY, : :COSME Performed By: Yessica Ricardo : :Referring: COSME MORALEZ : + + Interpretation Summary Left ventricular ejection fraction is estimated to be 50 +/- 5%. Septal motion is consistent with conduction abnormality. This is unchanged compared to the previous study. Procedure: A two-dimensional transthoracic echocardiogram with color flow and Doppler was performed in limited views only. The study quality was technically adequate. The patient was in atrial fibrillation with heart rates between 85-117 bpm during the exam. Left Ventricle: The left ventricle is normal in size and wall thickness. Left ventricular ejection fraction is estimated to be 50 +/- 5%. Septal motion is consistent with conduction abnormality. This is unchanged compared to the previous study. MMode/2D Measurements & Calculations LVIDd: 3.2 cm LVIDs: 2.5 cm FS: 22.5 % IVSd: 1.0 cm LVPWd: 1.1 cm LV bailey. diameter/BSA (cm/m^2): 1.3 LV sys. diameter/BSA (cm/m^2): 1.0 Reading Physician:12:30 PM
[2022-07-15 21:42] LABS: Troponin I < 0.012 ng/mL (0.01-0.034)
[2022-07-15] MEDS: ATORVASTATIN 20 MG TABLET 40 MG PO (21:57)
[2022-07-16] VITALS (9 sets, daily range): BP systolic 98–126; BP diastolic 57–85; PULSE 63–81; RESP 17–20; TEMP 36.4–37.1; O2SAT 93–99
[2022-07-16] MEDS: FUROSEMIDE 40 MG/4 ML VIAL IV ×2 (00:57→11:39)
[2022-07-16] MEDS: ACETAMINOPHEN 325 MG TABLET 650 MG PO ×2 (03:02→11:38)
[2022-07-16 06:25] LABS: Add Manual Diff / Slide Review NO; Basophils Absolute Auto 0 /uL (0-100); Basophils Percent Auto 0.5 % (0-2); Eosinophils Absolute Auto 100 /uL (0-450); Eosinophils Percent Auto 1.1 % (2-4); Hematocrit 42.3 % (36-46); Hemoglobin 14.3 g/dL (12.0-16.0); Lymphocytes Absolute Auto 800 /uL (1100-4500); Lymphocytes Percent Auto 13.9 % (25-40); Mean Corpuscular HGB Conc 33.9 % (30-36); Mean Corpuscular Hemoglobin 29.3 PG (26-34); Mean Corpuscular Volume 86.5 fL (80-100); Monocytes Absolute Auto 800 /uL (0-900); Neutrophils Absolute Auto 4100 /uL (1500-7000); Neutrophils Percent Auto 71.5 % (50-75); Platelet Count 230 X10^3/uL (150-400); Red Blood Cell Count 4.89 X10^6/uL (4.0-5.2); Red Cell Distribution Width 15.4 % (11.6-14.8); White Blood Cell Count 5.8 X10^3/uL (4.5-11.0)
[2022-07-16 06:29] LABS: BUN Creatinine Ratio 30.2 (6-22); Blood Urea Nitrogen 26 mg/dL (7-17); Calcium 8.7 mg/dL (8.4-10.2); Carbon Dioxide 29 mmol/L (22-32); Chloride 94 mmol/L (98-107); Cholesterol 123 mg/dL (140-199); Estimated Glomerular Filt Rate > 60 mL/min (>60); Glucose 106 mg/dL (80-110); HDL Cholesterol 35 mg/dL (40-60); HEMOLYSIS 16 (0-50); LDL Cholesterol Calculated 66 mg/dL (<100); Potassium 3.2 mmol/L (3.4-5.1); Sodium 136 mmol/L (137-145); Triglycerides 112 mg/dL (35-150)
[2022-07-16 06:37] LABS: Troponin I < 0.012 ng/mL (0.01-0.034)
[2022-07-16] MEDS: RIVAROXABAN 10 MG TABLET PO (10:34)
--- NOTE | 2022-07-16 11:13 | DIET.CONS ---
Addendum entered by Nan Forbes 07/16/22 11:51: RD agrees with internet and e business project manager note below Original Note: Dietary Consultation Note Admission Date: 07/15/2022 16:50 Assessment: 87 y/o F admitted with SOB and chest tightness. RD consulted for CHF nutrition education. Met with pt at bedside, along with daughter, to discuss current diet and possible changes. Pt currently has caregivers a couple times per week that assist with cook/prep food. Pt reports losing 3 yrs ago, which is when pts diet went down hill. Prior to this, pt reports being conscious about CHO intake as T2DM runs in family. Additionally, would keep track of BG using glucose monitor. Pt is interested in diabetes class here at [facility] since recent diagnosis of Dm with HgA1c of 6.5%. Diet recall: B: 2 eggs, toast L: usually not hungry. Will have a late lunch at [employer] restaurant 2x/week. D: leftover [employer] restaurant, whatever is in fridge, or dinner at daughters. Most recently had lasagna with salad. S: salted peanuts Fluid: water, tea. ETOH: occasionally drinks 1 glass wine/beer. Ht: 157.48 cm Wt: 75.5 kg BMI: 28.3 Last BM: 07/15/22 (07/15/22 17:49) MNA: 14 Ejremiah Score: 23 Diet: 07/15/22 Breakfast Fluid Restriction Diet Diet Modifications: Total fluid amount: 2,000 Amount allotted to patient trays: 0 Fluid in addition to trays: 0672-6374 amount: 1,500 1275-5505 amount: 500 Low Sodium Diet (2gm) Diet Modifications: Labs: RBC 4.89 X10^6/uL (4.0-5.2) 07/16/22 05:44 Hgb 14.3 g/dL (12.0-16.0) 07/16/22 05:44 Hct 42.3 % (36-46) 07/16/22 05:44 Creatinine 0.86 mg/dL (0.52-1.04) 07/16/22 05:44 NT-Pro-B Natriuret Pep 3520 pg/mL (<450) H 07/15/22 13:38 Nutrition Diagnosis: Food and nutrition related knowledge deficit r/t diagnosis of CHF aeb CHF exacerbation, lower extremity edema, no previous HF nutrition education, diet recall suggesting higher intake of sodium. Interventions: 1. Educated pt on HF nutrition therapy using handout. Recc <2000mg sodium/day. 2. Discussed DM education resources, cookbooks, and OP referral Nutrition Rx: 2000mg Na per day or less, Heart healthy diet Monitoring/Evaluations: consult prn, Rec OP DM ed prn Electronically Signed by: Aileen Casey 07/16/22 11:13 Clinical Dietitian [address] [address]
[2022-07-16] MEDS: POTASSIUM CHLORIDE 20 MEQ TAB 40 MEQ PO (11:38)
--- NOTE | 2022-07-16 15:18 | CM.DANOTE ---
DCP: Assessment: Pt is an 87 yo who was brought to the ED by EMS for c/o chest pressure, over the previous few days that worsened in frequency, severity and duration. She was noted to have Acute chest pain and shortness of breath with elevated bnp, orthopnea, lower extremity edema concerning for acute CHF exacerbation. Pt has a history of Afib, DMII, Hypothyroidism. This CM met with pt in her room. Introduced self and role. Pt states that she drives during the day but not at night. She denies the need or use of dme and she confirms that she lives alone in [place]. Pt states that her daughter is her main contact. She reports that she privately pays for [facility] who provides help to her at home. Plan: Home with [facility] support when medically stable. Asha Sahni RN Case Manager Discharge Planning/Care Management CM Discharge Assessment Start: 07/16/22 15:10 Freq: Status: Active Protocol: Document 07/16/22 15:11 BEATRIZ (Rec: 07/16/22 15:17 BEATRIZ [id number]) Discharge Planning Assessment Assigned Water Control Station Engineer Asha Sahni RN Case Manager Advance Directives? Yes: polst Advance Directives on File Yes History Provided By Patient,Medical Record Prior Living Arrangements House Household Members none Type of transporation used prior to Drives own vehicle admit Comment Pt reports that she does not drive at night Independent with ADL's Yes Is patient alert and oriented? Yes Caregiver for Another No Comment Pt is using [facility] for services at home. Whiteboard Updated in Patient Room with Yes name and ext. # of Water Control Station Engineer Review Status In Process Next Review Type Continued Stay Review
--- NOTE | 2022-07-16 16:26 | P.PN_ITS ---
Subjective Subjective Interval history: 87-year-old female with atrial fibrillation, hypothyroidism, type 2 diabetes who was admitted yesterday with progressive dyspnea on exertion and chest tightness. She would also noted increasing lower extremity swelling. She developed bandlike chest pressure on the date of admission and subsequently was seen in the emergency department. She was admitted with concern for potential evolving acute congestive heart failure and to evaluate for HI. Reports her shortness of breath has seemed to have improved. She has been diuresing well per her report. No further chest pressure. No chest pain, nausea, or shortness of breath. Patient reports she does weigh herself r egularly and had noted an approximate 6 lb weight loss over the past month that she believes to have been ?fluid weight ?. Exam Vital Signs (past 8 hours): - 07/16/22 10:34 07/16/22 10:34 07/16/22 16:02 Pulse Oximetry 93 95 Oxygen Delivery Method Room Air Room Air Room Air Oxygen Delivery Method Room Air Oxygen Flow Rate 0 Narrative Exam Narrative: GEN: Alert and oriented x 3, NAD HEENT:NC, Face symmetric CHEST: Respiratory excursions symmetric, CTAB CV: Irregularly irregular, rate controlled, no M/R/G ABD: Soft, NT/ND, BT present in all 4 quadrants, no organomegaly or masses EXTR: warm, well perfused, no C/C/E SKIN: warm and dry, no rash NEURO: Alert and oriented x 3, nonfocal Objective Labs 07/16/22 05:44 07/16/22 05:44 Labs: Laboratory Results - last 24 hr 07/15/22 07/15/22 07/16/22 17:52 21:12 05:44 WBC 5.8 RBC 4.89 Hgb 14.3 Hct 42.3 MCV 86.5 MCH 29.3 MCHC 33.9 RDW 15.4 H Plt Count 230 Neut % (Auto) 71.5 Lymph % (Auto) 13.9 L Wilcox % (Auto) 13.0 Eos % (Auto) 1.1 L Baso % (Auto) 0.5 Neut # (Auto) 4100 Lymph # (Auto) 800 L Wilcox # (Auto) 800 Eos # (Auto) 100 Baso # (Auto) 0 Sodium Potassium Chloride Carbon Dioxide BUN Creatinine Estimated GFR BUN/Creatinine Ratio Glucose Calcium Troponin I < 0.012 Triglycerides Cholesterol LDL Cholesterol, Calc HDL Cholesterol SARS-CoV-2 (PCR) Negative 07/16/22 05:44 WBC RBC Hgb Hct MCV MCH MCHC RDW Plt Count Neut % (Auto) Lymph % (Auto) Wilcox % (Auto) Eos % (Auto) Baso % (Auto) Neut # (Auto) Lymph # (Auto) Wilcox # (Auto) Eos # (Auto) Baso # (Auto) Sodium 136 L Potassium 3.2 L Chloride 94 L Carbon Dioxide 29 BUN 26 H Creatinine 0.86 Estimated GFR > 60 BUN/Creatinine Ratio 30.2 H Glucose 106 Calcium 8.7 Troponin I < 0.012 Triglycerides 112 Cholesterol 123 L LDL Cholesterol, Calc 66 HDL Cholesterol 35 L SARS-CoV-2 (PCR) [facility] Medical History Atrial fibrillation (~2016) Basal cell carcinoma Chicken pox (~194) Dizzy GERD (gastroesophageal reflux disease) (~1999) Hearing loss (~1994) Hiatal hernia History of urinary incontinence (~2015) Hypothyroidism Insomnia Measles (~194) Mumps (~1949) Osteoarthritis (~1979) Osteopenia (~1979) Prediabetes Preventative health care Retinal detachment (~1993) Rheumatic fever Rubella (~1949) Seasonal allergies (~1949) Tinnitus (~1959) Type 2 diabetes mellitus Vertigo (~1959) Vision disorder Surgical History Anesthesia History of eye surgery History of foot surgery (~1986) History of hysterectomy (~1985) History of knee surgery History of surgery History of tonsillectomy (~193) History of total left knee replacement Status post right knee replacement Family History Father Cancer Mother Diabetes mellitus History of heart disease Stroke Social History household members: none Smoking Status: Former smoker Tobacco: How many years used: 20 quit status: has quit before alcohol intake: current substance use type: marijuana Assessment & Plan Assessment & Plan narrative: 1. Acute chest pain This is now resolved. Troponins have been negative x3. There are plans in place for a nuclear stress test be done today. Unfortunately, patient had not been NPO and had had some decaffeinated tea this morning. Stress test was subsequently canceled. This will need to be scheduled on an outpatient basis. Await echocardiogram with limited views to evaluate for changes in her ejection fraction or for new wall motion abnormalities compared to complete echocardiogram done last month. If findings are stable, patient will be able to discharge home with outpatient nuclear stress test. 2. Concern for acute CHF exacerbation Patient presented with evolving dyspnea on exertion, chest pressure, and lower extremity edema. She was placed on furosemide 40 mg IV q.12 hours. Patient diuresed 750 mL yesterday. She has received furosemide IV this morning but has not yet had significant output. 3. Permanent atrial fibrillation Patient remains rate controlled. Continue Xarelto. Metoprolol was held due to plans for a nuclear stress test. This will now be resumed. 4. Type 2 diabetes Appears to be diet controlled as she has no diabetes medications on her home list. Blood sugars have been normal here. 5. Hypothyroidism She is on [place] thyroid. Will obtain a TSH. Code status Full Prophylaxis On Xarelto. Disposition Home. Healthcare proxy Priscilla Rose, patient's daughter Time Spent With Patient Critical Care time: I spent a total of [] minutes of critical care time on this patient's care today; this time is exclusive of procedural time. Quality VTE Deep Vein Thrombosis/Pulmonary Embolism Present on Admission: No
[2022-07-16 17:32] LABS: HEMOLYSIS < 15 (0-50); Magnesium 2.2 mg/dL (1.6-2.3); Potassium 3.9 mmol/L (3.4-5.1)
[2022-07-16 18:12] LABS: Thyroid Stimulating Hormone 3.48 uIU/mL (0.47-4.68)
[2022-07-16] MEDS: ATORVASTATIN 20 MG TABLET 40 MG PO (21:06)
[2022-07-16] MEDS: METOPROLOL ER 50 MG TABLET 100 MG PO (21:06)
[2022-07-17] VITALS: BP 99/68; PULSE 68; RESP 17; TEMP 36.4; O2SAT 94
[2022-07-17 04:00] VITALS: BP 103/62; PULSE 75; RESP 15; TEMP 36.2; O2SAT 96
[2022-07-17 05:00] VITALS: O2SAT 96
[2022-07-17] MEDS: PANTOPRAZOLE DR 20 MG TABLET PO (06:00)
[2022-07-17 06:16] LABS: BUN Creatinine Ratio 31.3 (6-22); Blood Urea Nitrogen 25 mg/dL (7-17); Calcium 8.9 mg/dL (8.4-10.2); Carbon Dioxide 29 mmol/L (22-32); Chloride 96 mmol/L (98-107); Estimated Glomerular Filt Rate > 60 mL/min (>60); Glucose 130 mg/dL (80-110); HEMOLYSIS < 15 (0-50); Potassium 3.7 mmol/L (3.4-5.1); Sodium 135 mmol/L (137-145)
[2022-07-17 08:10] VITALS: BP 108/60; PULSE 100; RESP 16; TEMP 36.5; O2SAT 97
[2022-07-17 09:00] VITALS: O2SAT 97
[2022-07-17 09:07] VITALS: BP 108/60; PULSE 100
[2022-07-17] MEDS: FUROSEMIDE 20 MG TABLET PO (09:07)
[2022-07-17] MEDS: METOPROLOL ER 50 MG TABLET 100 MG PO (09:07)
[2022-07-17] MEDS: ASPIRIN EC 81 MG TABLET PO (09:07)
[2022-07-17] MEDS: RIVAROXABAN 10 MG TABLET PO (09:08)
[2022-07-17] MEDS: ATORVASTATIN 20 MG TABLET 5 MG PO (09:08)
--- NOTE | 2022-07-17 14:10 | PC.NURSE ---
This RN agrees with all the documentation. all questions were answered before DC. pt denied chest pain/pressure. HR 93. No SOB. educated patient regarding her meds. IV removed. Tele removed.
--- NOTE | 2022-07-17 20:27 | P.DS_ITS ---
History of Present Illness History of Present Illness Chief complaint: Chest tightness/SOB,AFIB (hx same) Narrative: Per history and physical: Ms. Suarez is an 87W with PMH afib, GERD, hypothyoridism, Type 2 Diabetes who presents to the hospital with progressive shortness of breath and today with chest tightness. She has noted for weeks that she has shortness of breath primarily with exertion. She has noted she has lower leg swelling. She has atrial fibrillation and has not noted palpitations. Today she noted she has having a band like chest pain and pain in her left shoulder. She has no fevers/chills, or cough. She has noted shortness of breath with lying flat. In the ED workup was done, vitals notable for afebrile, heart rate in the 80s, blood pressure 130s/80s. Labs notable for WBC 5.1, hgb 14.9, plts 238. Creatinine 0.81. D-dimer negative. Procal 0.05. Trop negative. BNP 3520. EKG showed left bundle branch and atrial fibrillation. Chest xray showed no acute process. She was given aspirin and lasix and admitted for further treatment. Discharge Providers Provider Date of admission: 07/15/22 16:50 Discharge Date: 07/17/22 Primary care physician: Joey Duncan DO Consults: 07/15/22 18:48 Consult to Dietitian, Adult Routine Comment: Reason For Exam: chf Discharge provider: Tracy Pedro MD Summary Hospital Course Discharge Diagnosis: 1. Acute chest pain, resolved, negative troponin levels, suspect secondary to acute CHF exacerbation 2. Acute CHF exacerbation, with preserved ejection fraction 3. Permanent atrial fibrillation with intermittent RVR 4. Type 2 diabetes 5. Hypothyroidism Hospital Course: Patient presented to the emergency department with progressive shortness of breath and chest tightness. She would also had some lower extremity swelling. She did develop bandlike chest pressure on the date of admission and presented to the emergency department. In the emergency department she would an elevated BNP at 3520. Troponin was negative. EKG revealed left bundle branch block and atrial fibrillation which was rate controlled. Patient was admitted for rule out, diuresis, and stress testing. She was set up for a nuclear stress test on the morning after admission. Unfortunately she had not been NPO and drank tea and the stress test was canceled. Echocardiogram was done which revealed no wall motion abnormalities. It was a limited exam as she had a complete echocardiogram just last month. There were no changes between the 2 exams. Plan had been to discharge home but she had developed some mild orthostasis and muscle cramps felt likely to be related to rapid fluid shifts with diuresis. IV diuresis was discontinued and she was transitioned to oral Lasix. On the morning of discharge she did express being frustrated due to requiring assistance go the bathroom she reported she was feeling quite well asked for which she is encouraged monitor her pulse rates at contact her primary care provider or mixing and dispensing supervisor if she has persistent episodes of RVR. She is also instructed to monitor her weight daily and contact her mixing and dispensing supervisor or primary care provider for 3 lb weight gain in 24 hours or 5 lb weight gain in 1 week. She is to follow up with her primary care provider for referral for outpatient nuclear stress testing. She is discharged in stable condition. On the morning of discharge, she Denied any chest pain, shortness breast, or lightheadedness. Her muscular cramps have resolved. She did have episodes of intermittent RVR. Her metoprolol had been held on the morning of July 16 in anticipation of a nuclear stress test. It is possible that her RVR was a consequence of that held dose. However, it is also possible she has intermittent poor control contributing to congestive heart failure symptoms. As noted, she is instructed to monitor her pulse rate and follow-up with her mixing and dispensing supervisor or primary care provider. She is discharged in stable condition. Status at Discharge Cognitive/behavioral status at discharge: at baseline, oriented Overall status at discharge: patient is progressing back to baseline Exam Vital Signs (past 8 hours): Oxygen Delivery Method Room Air Oxygen Flow Rate 0 Narrative Exam Narrative: GEN: Alert and oriented x 3, NAD HEENT:NC, Face symmetric CHEST: Respiratory excursions symmetric, CTAB CV:? Irregularly irregular, rate controlled, no M/R/G ABD: Soft, NT/ND, BT present in all 4 quadrants, no organomegaly or masses EXTR: warm, well perfused, no C/C/E SKIN: warm and dry, no rash NEURO: Alert and oriented x 3, nonfocal Objective Labs 07/16/22 05:44 07/17/22 05:22 Labs: Laboratory Results - last 24 hr 07/17/22 05:22 Sodium 135 L Potassium 3.7 Chloride 96 L Carbon Dioxide 29 BUN 25 H Creatinine 0.80 Estimated GFR > 60 BUN/Creatinine Ratio 31.3 H Glucose 130 H Calcium 8.9 PFSH Medical History Atrial fibrillation (~2016) Basal cell carcinoma Chicken pox (~194) Dizzy GERD (gastroesophageal reflux disease) (~1999) Hearing loss (~1994) Hiatal hernia History of urinary incontinence (~2015) Hypothyroidism Insomnia Measles (~194) Mumps (~1949) Osteoarthritis (~1979) Osteopenia (~1979) Prediabetes Preventative health care Retinal detachment (~1993) Rheumatic fever Rubella (~1949) Seasonal allergies (~1949) Tinnitus (~1959) Type 2 diabetes mellitus Vertigo (~1959) Vision disorder Surgical History Anesthesia History of eye surgery History of foot surgery (~1986) History of hysterectomy (~1985) History of knee surgery History of surgery History of tonsillectomy (~1936) History of total left knee replacement Status post right knee replacement Family History Father Cancer Mother Diabetes mellitus History of heart disease Stroke Social History household members: none Smoking Status: Former smoker Tobacco: How many years used: 20 quit status: has quit before alcohol intake: current substance use type: marijuana Discharge Plan Discharge Plan Patient Disposition: Home Provider Discharge Comment: Weigh yourself each morning after emptying your bladder and in the same amount of clothing (or no clothing). The weight you get tomorrow will be your dry weight Call your PCP/mixing and dispensing supervisor for >3# wt gain in 24 hours or >5# wt gain in 1 week. Monitor your pulse and contact your PCP/mixing and dispensing supervisor if your pulse remains above 100 when you are at rest or above 130 (sustained) with activity F/u with your PCP for recheck as well as to get a referral for a nuclear stress test. Recommend you have a follow-up electrolyte panel in the next 1-2 weeks as well. Return to the ED for any worsening shortness of breath, fevers, inability to hold down food/liquids, or chest pain/pressure. Discharge orders & Medications Prescriptions: New furosemide 20 mg Tablet 20 mg PO DAILY Qty: 30 0RF potassium chloride 10 mEq capsule, extended release 10 meq PO DAILY Qty: 30 0RF Continued albuterol sulfate 90 mcg/actuation HFA aerosol inhaler 2 puff inhalation Q6H PRN (Reason: shortness of breath or wheezing) Qty: 8.5 0RF Xarelto 10 mg tablet See Rx Instructions .ROUTE .COMPLEX Qty: 90 0RF Dose Instruction: TAKE 1 TABLET BY MOUTH DAILY Rx Instructions: TAKE 1 TABLET BY MOUTH DAILY thyroid (pork) [[place] Thyroid] 30 mg tablet See Rx Instructions .ROUTE .COMPLEX Qty: 90 0RF Dose Instruction: TAKE 1 TABLET BY MOUTH DAILY Rx Instructions: TAKE 1 TABLET BY MOUTH DAILY DUE FOR A FOLLOW UP WITH PCP esomeprazole magnesium [Nexium] 20 mg capsule,delayed release(DR/EC) 20 mg PO DAILY rosuvastatin 5 mg tablet 2.5 mg PO DAILY Qty: 45 3RF acetaminophen [Tylenol Extra Strength] 500 mg tablet 1,000 mg PO Q6H PRN (Reason: Pain (Scale Score 1-3)) metoprolol succinate 25 mg tablet extended release 24 hr 100 mg PO BID spironolactone 25 mg tablet 12.5 mg PO DAILY Qty: 30 0RF Discontinued furosemide [Lasix] 20 mg tablet 20 mg PO DAILY PRN (Reason: edema) Qty: 30 0RF Medication counseling provided by Pharmacist: No Follow up/Referrals: Joey Duncan DO [Primary Care Provider] - Diet/Activity/Treatments Diet: Low-sodium Diet comment: Fluid restriction 2000 cc (2 Liters) per 24 hours Activity: As tolerated Oxygen: N/A Visit Report/Discharge Packet Instructions: Atrial Fibrillation, DI for Heart Failure, Furosemide, Potassium Chloride (By mouth) Stand Alone Forms: Congestive Heart Failure, Patient Portal/API Discharge Data Primary Care Provider: Joey Duncan Attending Provider: Chidi Portillo VTE Deep Vein Thrombosis/Pulmonary Embolism Present on Admission: No
== END 2022-07-17 13:15 | disposition home or self-care (01) ==
LOC: ED 16:25 → AC 16:51
PROVIDERS: Family Medicine; Admitting Provider Internal Medicine; Emergency Provider Emergency Medicine; PCP Family Medicine; Referring Provider Emergency Medicine; Visit Provider Internal Medicine
DX: R06.02 Shortness of breath (principal); R10.9 Unspecified abdominal pain; I48.21 Permanent atrial fibrillation; K21.9 Gastro-esophageal reflux disease without esophagitis; E03.9 Hypothyroidism, unspecified; E11.9 Type 2 diabetes mellitus without complications; Z20.822 Contact with and (suspected) exposure to COVID-19
CPT/HCPCS: 36415; 71045; 80048; 80053; 80061; 81001; 82550; 83690; 83735; 83880; 84132; 84145; 84443; 84484; 85025; 85379; 87635; 93005; 93307; 96374; 96376; 99284; C9803; G0378; J1940

== ENCOUNTER 2022-07-19 09:21 | Emergency (ER) | payer MEDICARE, OTHER, SELFPAY ==
[2022-07-15 17:49] VITALS: BMI 28.3
[2022-07-19 09:47] VITALS: BP 118/76; PULSE 62; RESP 14; TEMP 36.1; O2SAT 96; BMI 27.7
[2022-07-19 10:16] LABS: Add Manual Diff / Slide Review NO; Basophils Absolute Auto 100 /uL (0-100); Basophils Percent Auto 1.6 % (0-2); Eosinophils Absolute Auto 0 /uL (0-450); Eosinophils Percent Auto 1.2 % (2-4); Hematocrit 48.3 % (36-46); Hemoglobin 16.2 g/dL (12.0-16.0); Lymphocytes Absolute Auto 800 /uL (1100-4500); Lymphocytes Percent Auto 17.8 % (25-40); Mean Corpuscular HGB Conc 33.5 % (30-36); Mean Corpuscular Hemoglobin 29.3 PG (26-34); Mean Corpuscular Volume 87.5 fL (80-100); Monocytes Absolute Auto 400 /uL (0-900); Monocytes Percent Auto 10.5 % (3-14); Neutrophils Absolute Auto 2900 /uL (1500-7000); Neutrophils Percent Auto 68.9 % (50-75); Platelet Count 285 X10^3/uL (150-400); Red Blood Cell Count 5.51 X10^6/uL (4.0-5.2); Red Cell Distribution Width 15.6 % (11.6-14.8); White Blood Cell Count 4.2 X10^3/uL (4.5-11.0)
[2022-07-19 10:20] LABS: Appearance Urine UA CLOUDY; Bilirubin Urine UA 2+ (NEGATIVE); Color Urine UA RED; Glucose Urine UA 3+ g/dL (Negative); Ketones Urine UA TRACE (NEGATIVE); Leukocyte Esterase Urine UA 1+ (NEGATIVE); Nitrite Urine UA POSITIVE (Negative); Occult Blood Urine UA 3+ (Negative); Protein Urine UA 2+ (Negative)
[2022-07-19 10:26] LABS: INR 2.5 (0.9-1.3); Prothrombin Time 28.7 SECONDS (10.1-12.7)
[2022-07-19 10:28] LABS: PTT Partial Thromboplastin Tim 40 SECONDS (26-36)
[2022-07-19 10:33] LABS: BUN Creatinine Ratio 27.2 (6-22); Blood Urea Nitrogen 25 mg/dL (7-17); Calcium 9.2 mg/dL (8.4-10.2); Carbon Dioxide 27 mmol/L (22-32); Chloride 95 mmol/L (98-107); Estimated Glomerular Filt Rate > 60 mL/min (>60); Glucose 183 mg/dL (80-110); HEMOLYSIS 15 (0-50); Potassium 3.9 mmol/L (3.4-5.1); Sodium 134 mmol/L (137-145)
[2022-07-19 10:35] LABS: Ictotest Urine Negative (Negative); RBC Urine >100/HPF (0-5/HPF)
[2022-07-19 10:36] LABS: Bacteria Urine Many (>30); Culture Indicated Urine Specimen Cultured; Squamous Epithelial Cell Urine 1-5 /HPF (0-5/HPF); WBC Urine 10-30/HPF (0-5/HPF)
[2022-07-19 11:33] LABS: Alanine Aminotransferase 25 IU/L (<35); Albumin 4.3 g/dL (3.5-5.0); Albumin Globulin Ratio 1.5 (1.0-2.8); Alkaline Phosphatase 58 U/L (38-126); Aspartate Aminotransferase 33 IU/L (14-36); Bilirubin Total 1.1 mg/dL (0.2-1.3); Bilirubin Unconjugated 0.6 mg/dL (0.0-1.1); Globulin 2.8 g/dL (1.7-4.1); HEMOLYSIS 16 (0-50); Total Protein 7.1 g/dL (6.3-8.2)
[2022-07-19 12:27] VITALS: PULSE 76; O2SAT 96
[2022-07-19 12:29] VITALS: BP 105/78; PULSE 101; O2SAT 96
--- NOTE | 2022-07-19 12:38 | ED.FEMALEGU ---
HPI - Female Genitourinary <Lanre Carbone PA-C - Last Filed: 07/19/22 12:47> General Chief complaint: Urogenital-Female Stated complaint: blood in urine Time Seen by Provider: 07/19/22 11:57 Source: patient Mode of arrival: Ambulatory History of Present Illness HPI Narrative: 87-year-old female with past medical history CHF, hypothyroidism, hyperlipidemia, atrial fibrillation, diabetes presents to the ED with 2 days of hematuria. Patient was recently discharged from the hospital, following a CHF exacerbation. Patient states that she started noticing hematuria starting last night. Patient denies fever, chills, nausea, vomiting, flank pain, abdominal pain, lightheadedness, dizziness, syncope. Patient states that she has never had a UTI in the past. Related Data Home Medications Medication Instructions Recorded Confirmed acetaminophen 500 mg tablet 1,000 mg PO Q6H PRN Pain (Scale 03/21/19 07/15/22 (Tylenol Extra Strength) Score 1-3) esomeprazole magnesium 20 mg 20 mg PO DAILY 07/10/19 07/15/22 capsule,delayed release (Nexium) metoprolol succinate 25 mg 100 mg PO BID 07/15/22 07/15/22 tablet,extended release 24 hr Previous Rx's Medication Instructions Recorded rosuvastatin 5 mg tablet 2.5 mg PO DAILY #45 tabs 04/21/21 albuterol sulfate 90 mcg/actuation 2 puff inhalation Q6H PRN 08/23/21 aerosol inhaler shortness of breath or wheezing #8.5 grams spironolactone 25 mg tablet 12.5 mg PO DAILY #30 tabs 04/13/22 rivaroxaban 10 mg tablet (Xarelto) See Rx Instructions .Route 04/26/22 .COMPLEX #90 tabs thyroid (pork) 30 mg tablet See Rx Instructions .Route 06/16/22 (Jackson Thyroid) .COMPLEX #90 tabs furosemide 20 mg tablet 20 mg PO DAILY #30 tabs 07/17/22 potassium chloride 10 mEq 10 meq PO DAILY #30 caps 07/17/22 capsule,extended release cefpodoxime 200 mg tablet 200 mg PO Q12H 10 days #20 tabs 07/19/22 Allergies Allergy/AdvReac Type Severity Reaction Status Date / Time levothyroxine sodium Allergy Mild itching Verified 02/27/23 09:53 [From Synthroid] liothyronine Allergy Mild Itching Verified 07/19/22 09:53 diltiazem Allergy dizziness, Verified 07/19/22 09:53 nausea, triamterene AdvReac Mild Weakness, Verified 07/19/22 09:53 dizzy spells codeine AdvReac dizziness Verified 07/19/22 09:53 Review of Systems <Lanre Carbone PA-C - Last Filed: 07/19/22 12:47> Review of Systems ROS Unobtainable: All systems reviewed & are unremarkable except as noted in HPI and below Constitutional Constitutional: Denies chills, Denies fatigue, Denies fever(s), Denies frequent falls, Denies lethargy and Denies weakness Eyes Eyes: Denies change in vision, Denies eye discharge, Denies irritation and Denies loss of vision ENT Ears, Nose, Mouth, and Throat: Denies change in voice, Denies dizziness, Denies neck pain, Denies sore throat and Denies throat swelling Cardiovascular Cardiovascular: Denies chest pain, Denies irregular heart rhythm, Denies lightheadedness, Denies palpitations, Denies dyspnea, Denies dyspnea on exertion and Denies orthopnea Respiratory Respiratory: Denies cough, Denies dyspnea, Denies dyspnea on exertion and Denies wheezing Gastrointestinal Gastrointestinal: Denies abdominal pain, Denies change in bowel habits, Denies diarrhea, Denies nausea and Denies vomiting Genitourinary Genitourinary: Denies hematuria, Denies flank pain, Denies urinary incontinence and Denies urinary urgency Comments: Hematuria Musculoskeletal Musculoskeletal: Denies back pain, Denies muscle weakness, Denies neck pain, Denies numbness and Denies tingling Integumentary/Breasts Skin/Breast: Denies pruritus, Denies erythema, Denies rash and Denies wounds Neurologic Neurologic: Denies behavioral changes, Denies confusion, Denies dizziness, Denies frequent falls, Denies loss of vision, Denies numbness, Denies tingling and Denies weakness Psychiatric Psychiatric: Denies anxiety, Denies behavioral changes, Denies confusion, Denies depression, Denies homicidal ideation and Denies suicidal ideation Endocrine Endocrine: Denies fatigue, Denies flushing and Denies palpitations Hematologic/Lymphatic Hematologic/Lymphatic: Denies easy bruising Allergic/Immunologic Allergic/Immunologic: Denies urticaria, Denies throat swelling and Denies wheezing Patient History <Lanre Carbone PA-C - Last Filed: 07/19/22 12:47> Medical History Atrial fibrillation (~2017) Basal cell carcinoma Chicken pox (~1948) Dizzy GERD (gastroesophageal reflux disease) (~1999) Hearing loss (~1994) Hiatal hernia History of urinary incontinence (~2015) Hypothyroidism Insomnia Measles (~194) Mumps (~1949) Osteoarthritis (~1979) Osteopenia (~1979) Prediabetes Preventative health care Retinal detachment (~1993) Rheumatic fever Rubella (~1949) Seasonal allergies (~1949) Tinnitus (~1959) Type 2 diabetes mellitus Vertigo (~1959) Vision disorder Surgical History Anesthesia History of eye surgery History of foot surgery (~1986) History of hysterectomy (~1985) History of knee surgery History of surgery History of tonsillectomy (~193) History of total left knee replacement Status post right knee replacement Family History Father Cancer Mother Diabetes mellitus History of heart disease Stroke alcohol intake frequency: a few times a week Substance Use Type: marijuana Exam <Lanre Carbone PA-C - Last Filed: 07/19/22 12:47> Narrative Exam Narrative: Const General:?cooperative, healthy appearing and comfortable [facility] Head:?normal to inspection Ears:?hearing grossly normal bilaterally Nose:?external nose normal Face and sinus:?normal facial exam and sinuses nontender Mouth:?oral mucosae normal Throat:?posterior oropharynx normal Eyes General:?appearance normal, both eyes and all related structures Neck Neck:?normal visual inspection and no lymphadenopathy noted Resp Effort & Inspection:?normal respiratory effort Auscultation:?clear to auscultation bilaterally Cardio Rate:?regular rate Rhythm:?regular rhythm GI Abdomen is soft, nontender, nondistended. There is no CVA tenderness. Neuro General:?patient alert, patient awake and patient oriented x3 Initial Vital Signs Initial Vital Signs: Vital Signs Temperature 97.0 F L 07/19/22 09:47 Pulse Rate 62 07/19/22 09:47 Respiratory Rate 14 07/19/22 09:47 Blood Pressure 118/76 07/19/22 09:47 Pulse Oximetry 96 07/19/22 09:47 Oxygen Delivery Method 07/19/22 09:47 <DO Jay Concepcion Last Filed: 07/19/22 13:08> Initial Vital Signs Initial Vital Signs: Vital Signs Temperature 97.0 F L 07/19/22 09:47 Pulse Rate 62 07/19/22 09:47 Respiratory Rate 14 07/19/22 09:47 Blood Pressure 118/76 07/19/22 09:47 Pulse Oximetry 96 07/19/22 09:47 Oxygen Delivery Method 07/19/22 09:47 Course <Lanre Carbone PA-C - Last Filed: 07/19/22 12:47> Orders Ordered: ED Orders 07/19/22 10:04 Basic Metabolic Panel Stat Complete Blood Count AUTO DIFF Stat Hepatic (Liver) Panel Stat Partial Thromboplastin Time Stat Prothrombin Time INR Stat 07/19/22 10:13 Ictotest Urine Stat Urinalysis and Microscopic Stat Urine Culture Stat Vital Signs Vital signs: Vital Signs - 8 hr 07/19/22 09:47 07/19/22 12:27 07/19/22 12:29 Temperature 97.0 F L Pulse Rate 62 76 101 H Respiratory Rate 14 Blood Pressure 118/76 Pulse Oximetry 96 96 96 Oxygen Delivery Method Room Air 07/19/22 12:29 Temperature Pulse Rate Respiratory Rate Blood Pressure 105/78 Pulse Oximetry Oxygen Delivery Method <DO Jay Concepcion Last Filed: 07/19/22 13:08> Orders Ordered: ED Orders 07/19/22 10:04 Basic Metabolic Panel Stat Complete Blood Count AUTO DIFF Stat Hepatic (Liver) Panel Stat Partial Thromboplastin Time Stat Prothrombin Time INR Stat 07/19/22 10:13 Ictotest Urine Stat Urinalysis and Microscopic Stat Urine Culture Stat Vital Signs Vital signs: Vital Signs - 8 hr 07/19/22 09:47 07/19/22 12:27 07/19/22 12:29 Temperature 97.0 F L Pulse Rate 62 76 101 H Respiratory Rate 14 Blood Pressure 118/76 Pulse Oximetry 96 96 96 Oxygen Delivery Method Room Air 07/19/22 12:29 Temperature Pulse Rate Respiratory Rate Blood Pressure 105/78 Pulse Oximetry Oxygen Delivery Method MDM - Female Genitourinary <AC Stacy Last Filed: 07/19/22 12:47> Lab Data 07/19/22 10:04 07/19/22 10:04 Labs: Lab Results 07/19/22 07/19/22 07/19/22 Range/Units 10:04 10:04 10:04 WBC 4.2 L (4.5-11.0) X10^3/uL RBC 5.51 H (4.0-5.2) X10^6/uL Hgb 16.2 H (12.0-16.0) g/dL Hct 48.3 H (36-46) % MCV 87.5 (80-100) fL MCH 29.3 (26-34) PG MCHC 33.5 (30-36) % RDW 15.6 H (11.6-14.8) % Plt Count 285 (150-400) X10^3/uL Neut % (Auto) 68.9 (50-75) % Lymph % (Auto) 17.8 L (25-40) % Terrell % (Auto) 10.5 (3-14) % Eos % (Auto) 1.2 L (2-4) % Baso % (Auto) 1.6 (0-2) % Neut # (Auto) 2900 (3628-0960) /uL Lymph # (Auto) 800 L (8822-5097) /uL Terrell # (Auto) 400 (0-900) /uL Eos # (Auto) 0 (0-450) /uL Baso # (Auto) 100 (0-100) /uL PT 28.7 H (10.1-12.7) SECONDS INR 2.5 H (0.9-1.3) APTT 40 H (26-36) SECONDS Sodium 134 L (137-145) mmol/L Potassium 3.9 (3.4-5.1) mmol/L Chloride 95 L (98-107) mmol/L Carbon Dioxide 27 (22-32) mmol/L BUN 25 H (7-17) mg/dL Creatinine 0.92 (0.52-1.04) mg/dL Estimated GFR > 60 (>60) mL/min BUN/Creatinine Ratio 27.2 H (6-22) Glucose 183 H (80-110) mg/dL Calcium 9.2 (8.4-10.2) mg/dL Total Bilirubin (0.2-1.3) mg/dL Conjugated Bilirubin (0.0-0.3) md/dL Unconjugated Bilirubin (0.0-1.1) mg/dL AST (14-36) IU/L ALT (<35) IU/L Alkaline Phosphatase (38-126) U/L Total Protein (6.3-8.2) g/dL Albumin (3.5-5.0) g/dL Globulin (1.7-4.1) g/dL Albumin/Globulin Ratio (1.0-2.8) Urine Color Urine Appearance Urine pH (4.5-8.0) Ur Specific [place] (1.000-1.035) Urine Protein (Negative) Urine Glucose (UA) (Negative) g/dL Urine Ketones (NEGATIVE) Urine Occult Blood (Negative) Urine Nitrate (Negative) Urine Bilirubin (NEGATIVE) Ur Bilirubin Confirm (Negative) Urine Urobilinogen (0.2) E.U./dL Ur Leukocyte Esterase (NEGATIVE) Urine RBC (0-5/HPF) Urine WBC (0-5/HPF) Ur Squamous Epith Cells (0-5/HPF) Urine Bacteria (None) Ur Culture Indicated? 07/19/22 07/19/22 Range/Units 10:04 10:13 WBC (4.5-11.0) X10^3/uL RBC (4.0-5.2) X10^6/uL Hgb (12.0-16.0) g/dL Hct (36-46) % MCV (80-100) fL MCH (26-34) PG MCHC (30-36) % RDW (11.6-14.8) % Plt Count (150-400) X10^3/uL Neut % (Auto) (50-75) % Lymph % (Auto) (25-40) % Terrell % (Auto) (3-14) % Eos % (Auto) (2-4) % Baso % (Auto) (0-2) % Neut # (Auto) (0093-3492) /uL Lymph # (Auto) (6803-9405) /uL Terrell # (Auto) (0-900) /uL Eos # (Auto) (0-450) /uL Baso # (Auto) (0-100) /uL PT (10.1-12.7) SECONDS INR (0.9-1.3) APTT (26-36) SECONDS Sodium (137-145) mmol/L Potassium (3.4-5.1) mmol/L Chloride (98-107) mmol/L Carbon Dioxide (22-32) mmol/L BUN (7-17) mg/dL Creatinine (0.52-1.04) mg/dL Estimated GFR (>60) mL/min BUN/Creatinine Ratio (6-22) Glucose (80-110) mg/dL Calcium (8.4-10.2) mg/dL Total Bilirubin 1.1 (0.2-1.3) mg/dL Conjugated Bilirubin 0.0 (0.0-0.3) md/dL Unconjugated Bilirubin 0.6 (0.0-1.1) mg/dL AST 33 (14-36) IU/L ALT 25 (<35) IU/L Alkaline Phosphatase 58 (38-126) U/L Total Protein 7.1 (6.3-8.2) g/dL Albumin 4.3 (3.5-5.0) g/dL Globulin 2.8 (1.7-4.1) g/dL Albumin/Globulin Ratio 1.5 (1.0-2.8) Urine Color Red Urine Appearance Cloudy Urine pH 5.0 (4.5-8.0) Ur Specific [place] 1.010 (1.000-1.035) Urine Protein 2+ H (Negative) Urine Glucose (UA) 3+ H (Negative) g/dL Urine Ketones Trace H (NEGATIVE) Urine Occult Blood 3+ H (Negative) Urine Nitrate Positive H (Negative) Urine Bilirubin 2+ H (NEGATIVE) Ur Bilirubin Confirm Negative (Negative) Urine Urobilinogen 1.0 (0.2) E.U./dL Ur Leukocyte Esterase 1+ H (NEGATIVE) Urine RBC >100/hpf H (0-5/HPF) Urine WBC 10-30/hpf H (0-5/HPF) Ur Squamous Epith Cells 1-5 /hpf (0-5/HPF) Urine Bacteria Many (>30) H (None) Ur Culture Indicated? Specimen cultured MDM Narrative Medical decision making narrative: 87-year-old female with past medical history CHF, hypothyroidism, hyperlipidemia, atrial fibrillation, diabetes presents to the ED with 2 days of hematuria. Concern for UTI versus pyelonephritis versus other. Obtained UA, labs. UA was positive for a UTI. UA was also positive for ketones, likely starvation ketosis. Labs within normal limits. Patient's symptoms likely due to a UTI. Antibiotics prescribed. ED return precautions were discussed with patient. Patient verbalized understanding. Medical records reviewed: Yes <Ricky Kristiemikhail, DO - Last Filed: 07/19/22 13:08> Lab Data Labs: Lab Results 07/19/22 07/19/22 07/19/22 Range/Units 10:04 10:04 10:04 WBC 4.2 L (4.5-11.0) X10^3/uL RBC 5.51 H (4.0-5.2) X10^6/uL Hgb 16.2 H (12.0-16.0) g/dL Hct 48.3 H (36-46) % MCV 87.5 (80-100) fL MCH 29.3 (26-34) PG MCHC 33.5 (30-36) % RDW 15.6 H (11.6-14.8) % Plt Count 285 (150-400) X10^3/uL Neut % (Auto) 68.9 (50-75) % Lymph % (Auto) 17.8 L (25-40) % Terrell % (Auto) 10.5 (3-14) % Eos % (Auto) 1.2 L (2-4) % Baso % (Auto) 1.6 (0-2) % Neut # (Auto) 2900 (5974-5833) /uL Lymph # (Auto) 800 L (3281-4965) /uL Terrell # (Auto) 400 (0-900) /uL Eos # (Auto) 0 (0-450) /uL Baso # (Auto) 100 (0-100) /uL PT 28.7 H (10.1-12.7) SECONDS INR 2.5 H (0.9-1.3) APTT 40 H (26-36) SECONDS Sodium 134 L (137-145) mmol/L Potassium 3.9 (3.4-5.1) mmol/L Chloride 95 L (98-107) mmol/L Carbon Dioxide 27 (22-32) mmol/L BUN 25 H (7-17) mg/dL Creatinine 0.92 (0.52-1.04) mg/dL Estimated GFR > 60 (>60) mL/min BUN/Creatinine Ratio 27.2 H (6-22) Glucose 183 H (80-110) mg/dL Calcium 9.2 (8.4-10.2) mg/dL Total Bilirubin (0.2-1.3) mg/dL Conjugated Bilirubin (0.0-0.3) md/dL Unconjugated Bilirubin (0.0-1.1) mg/dL AST (14-36) IU/L ALT (<35) IU/L Alkaline Phosphatase (38-126) U/L Total Protein (6.3-8.2) g/dL Albumin (3.5-5.0) g/dL Globulin (1.7-4.1) g/dL Albumin/Globulin Ratio (1.0-2.8) Urine Color Urine Appearance Urine pH (4.5-8.0) Ur Specific [place] (1.000-1.035) Urine Protein (Negative) Urine Glucose (UA) (Negative) g/dL Urine Ketones (NEGATIVE) Urine Occult Blood (Negative) Urine Nitrate (Negative) Urine Bilirubin (NEGATIVE) Ur Bilirubin Confirm (Negative) Urine Urobilinogen (0.2) E.U./dL Ur Leukocyte Esterase (NEGATIVE) Urine RBC (0-5/HPF) Urine WBC (0-5/HPF) Ur Squamous Epith Cells (0-5/HPF) Urine Bacteria (None) Ur Culture Indicated? 07/19/22 07/19/22 Range/Units 10:04 10:13 WBC (4.5-11.0) X10^3/uL RBC (4.0-5.2) X10^6/uL Hgb (12.0-16.0) g/dL Hct (36-46) % MCV (80-100) fL MCH (26-34) PG MCHC (30-36) % RDW (11.6-14.8) % Plt Count (150-400) X10^3/uL Neut % (Auto) (50-75) % Lymph % (Auto) (25-40) % Terrell % (Auto) (3-14) % Eos % (Auto) (2-4) % Baso % (Auto) (0-2) % Neut # (Auto) (1036-6024) /uL Lymph # (Auto) (5620-3711) /uL Terrell # (Auto) (0-900) /uL Eos # (Auto) (0-450) /uL Baso # (Auto) (0-100) /uL PT (10.1-12.7) SECONDS INR (0.9-1.3) APTT (26-36) SECONDS Sodium (137-145) mmol/L Potassium (3.4-5.1) mmol/L Chloride (98-107) mmol/L Carbon Dioxide (22-32) mmol/L BUN (7-17) mg/dL Creatinine (0.52-1.04) mg/dL Estimated GFR (>60) mL/min BUN/Creatinine Ratio (6-22) Glucose (80-110) mg/dL Calcium (8.4-10.2) mg/dL Total Bilirubin 1.1 (0.2-1.3) mg/dL Conjugated Bilirubin 0.0 (0.0-0.3) md/dL Unconjugated Bilirubin 0.6 (0.0-1.1) mg/dL AST 33 (14-36) IU/L ALT 25 (<35) IU/L Alkaline Phosphatase 58 (38-126) U/L Total Protein 7.1 (6.3-8.2) g/dL Albumin 4.3 (3.5-5.0) g/dL Globulin 2.8 (1.7-4.1) g/dL Albumin/Globulin Ratio 1.5 (1.0-2.8) Urine Color Red Urine Appearance Cloudy Urine pH 5.0 (4.5-8.0) Ur Specific [place] 1.010 (1.000-1.035) Urine Protein 2+ H (Negative) Urine Glucose (UA) 3+ H (Negative) g/dL Urine Ketones Trace H (NEGATIVE) Urine Occult Blood 3+ H (Negative) Urine Nitrate Positive H (Negative) Urine Bilirubin 2+ H (NEGATIVE) Ur Bilirubin Confirm Negative (Negative) Urine Urobilinogen 1.0 (0.2) E.U./dL Ur Leukocyte Esterase 1+ H (NEGATIVE) Urine RBC >100/hpf H (0-5/HPF) Urine WBC 10-30/hpf H (0-5/HPF) Ur Squamous Epith Cells 1-5 /hpf (0-5/HPF) Urine Bacteria Many (>30) H (None) Ur Culture Indicated? Specimen cultured Discharge Plan Departure Patient Disposition: Home Clinical Impression: Urinary tract infection Instructions: DI for Urinary Retention in Women Activity Restrictions/Additional Instructions: You were evaluated in the ED today for blood in the urine. Your labs were normal. Your urine was positive for a urinary tract infection. You are being prescribed an antibiotic for 10 days. Please complete the full course of antibiotics as prescribed. Please follow-up with your PCP in a week. Return to the ED if your symptoms worsen, you experience persistent vomiting, fever, chills. Prescriptions: New cefpodoxime 200 mg tablet 200 mg PO Q12H 10 Days Qty: 20 0RF Rx Instructions: must administer with a meal/food No Action albuterol sulfate 90 mcg/actuation HFA aerosol inhaler 2 puff inhalation Q6H PRN (Reason: shortness of breath or wheezing) Qty: 8.5 0RF Xarelto 10 mg tablet See Rx Instructions .ROUTE .COMPLEX Qty: 90 0RF Dose Instruction: TAKE 1 TABLET BY MOUTH DAILY Rx Instructions: TAKE 1 TABLET BY MOUTH DAILY thyroid (pork) [Jackson Thyroid] 30 mg tablet See Rx Instructions .ROUTE .COMPLEX Qty: 90 0RF Dose Instruction: TAKE 1 TABLET BY MOUTH DAILY Rx Instructions: TAKE 1 TABLET BY MOUTH DAILY DUE FOR A FOLLOW UP WITH PCP esomeprazole magnesium [Nexium] 20 mg capsule,delayed release(DR/EC) 20 mg PO DAILY rosuvastatin 5 mg tablet 2.5 mg PO DAILY Qty: 45 3RF acetaminophen [Tylenol Extra Strength] 500 mg tablet 1,000 mg PO Q6H PRN (Reason: Pain (Scale Score 1-3)) metoprolol succinate 25 mg tablet extended release 24 hr 100 mg PO BID furosemide 20 mg Tablet 20 mg PO DAILY Qty: 30 0RF potassium chloride 10 mEq capsule, extended release 10 meq PO DAILY Qty: 30 0RF spironolactone 25 mg tablet 12.5 mg PO DAILY Qty: 30 0RF Referrals: Joey Duncan DO [Primary Care Provider] - Stand Alone Forms: Patient Portal/API <Ricky Cooley DO - Last Filed: 07/19/22 13:08> Cosign ED Attending Cosdavidature Attestation: Dr Cooley Co-Sign Statement: I was available for consultation during this patient's emergency department visit. This chart is signed by myself for administrative purposes only. I did not have direct contact with this patient during this visit. They were seen independently by the APC.
== END 2022-07-19 12:38 | disposition home or self-care (01) ==
PROVIDERS: Emergency Medicine; Emergency Provider Student in an Organized Health Care Education/Training Program; PCP Family Medicine
DX: N39.0 Urinary tract infection, site not specified (principal)
CPT/HCPCS: 36415; 80048; 80076; 81001; 85025; 85610; 85730; 87086; 99283

== ENCOUNTER → 2022-10-06 07:01 | Outpatient (CLI) | payer MEDICARE, OTHER, SELFPAY ==
[2022-07-15 17:49] VITALS: BMI 28.3
[2022-10-06 08:30] LABS: HEMOLYSIS < 15 (0-50)
[2022-10-06 08:35] LABS: Alanine Aminotransferase 17 IU/L (<35); Albumin Globulin Ratio 1.6 (1.0-2.8); Alkaline Phosphatase 57 U/L (38-126); Aspartate Aminotransferase 23 IU/L (14-36); BUN Creatinine Ratio 41.5 (6-22); Bilirubin Total 0.5 mg/dL (0.2-1.3); Blood Urea Nitrogen 34 mg/dL (7-17); Calcium 9.4 mg/dL (8.4-10.2); Carbon Dioxide 30 mmol/L (22-32); Chloride 98 mmol/L (98-107); Estimated Glomerular Filt Rate > 60 mL/min (>60); Globulin 2.5 g/dL (1.7-4.1); Glucose 126 mg/dL (80-110); Potassium 4.1 mmol/L (3.4-5.1); Sodium 136 mmol/L (137-145); Total Protein 6.5 g/dL (6.3-8.2)
[2022-10-06 08:46] LABS: NT-proBNP (BNP-Adult 18+) 3680 pg/mL (<450)
[2022-10-06 15:36] LABS: Appearance Urine UA CLEAR; Bilirubin Urine UA NEGATIVE (NEGATIVE); Color Urine UA YELLOW; Glucose Urine UA 3+ g/dL (Negative); Ketones Urine UA NEGATIVE (NEGATIVE); Leukocyte Esterase Urine UA NEGATIVE (NEGATIVE); Nitrite Urine UA NEGATIVE (Negative); Occult Blood Urine UA NEGATIVE (Negative); Protein Urine UA NEGATIVE (Negative); Urobilinogen Urine UA 0.2 E.U./dL (0.2)
[2022-10-06 15:37] LABS: pH Urine UA 5.5 (4.5-8.0)
[2022-10-06 15:54] LABS: Bacteria Urine Occasional (0-1); RBC Urine None Seen (0-5/HPF); Squamous Epithelial Cell Urine 5-10 /HPF (0-5/HPF); WBC Urine 5-10/HPF (0-5/HPF)
--- NOTE | 2022-10-22 17:30 | DIAB.MNT ---
Initial Diabetes Medical Nutrition Therapy Assessment Name: Uma Suarez Date: 10/06/22 Time: 330-5p Dx: Type II Diabetes Provider: Duncan Uma presents for initial Dm visit. Most recent HgA1c of 6.5%. +FH of DM with mother and siblings. PMH of CHF. H/o DM diagnosis 25 yrs ago per report, and managed with Metformin and diet changes, eating mostly fruits and veggies at the time. States her passed in 2019 and this impacted her diet negatively. Reports meal timing and ice cream intake impacted. Sometimes has to remind herself to eat breakfast since she often forgets, this was a meal her and her often shared. Considering hiring a caregiver to help with cooking. Diet Recall: 10a: eggs, thin toast with tsp butter, half c prune juice 3-4p: lunch with grandson 2x per week out OR fruit with 1/2c dry oats, yogur tor almond milk, OR leftovers sn: nothing or handful peanuts or diet soda Beverages: 1-3c tea, 24oz water, diet soda, cut out ETOH recently. Anthropometrics: Ht: 62 Wt: 157.25 07/2022 at PCP visit Physical Activity: inconsistent walking with dog. Barrier: knee pain Self-Monitoring Blood Glucose: Checks FBG. Often around 150mg/dl per report, but can range from 120-200mg/dl. Diabetes Medications: 10 mg Jardiance Pertinent Labs: HgA1c 6.5 05/2022 Past Medical History: (Last Reviewed 10/11/22 @ 15:37 by Joey Duncan DO) Atrial fibrillation (~2017) Basal cell carcinoma Chicken pox (~1948) Dizzy GERD (gastroesophageal reflux disease) (~1999) Hearing loss (~1994) Hiatal hernia History of urinary incontinence (~2016) Hypothyroidism Insomnia Measles (~194) Mumps (~1949) Osteoarthritis (~1979) Osteopenia (~1979) Prediabetes Preventative health care Retinal detachment (~1993) Rheumatic fever 1939/1952 Rubella (~1949) Seasonal allergies (~1949) Tinnitus (~1959) Type 2 diabetes mellitus Vertigo (~1959) Vision disorder Nutrition Rx: Carbohydrates: Meal:30-45g Snack:15-30g Nutrition Diagnosis: - Inconsistent energy intake r/t nutrition knowledge deficit and diet changes impacted by loss of her aeb diet recall and pt report - Food and nutrition related knowledge deficit r/t limited previous nutrition/dm education aeb pt report - new Intervention: This participant was very receptive. Provided appropriate educational handouts. Discussed the following topics: Completed intake assessment. Discussed barriers to care. HgA1c, its correlation to blood glucose numbers, and rationale for goal Importance of self-monitoring, how often, and when to check. Suggested checking at different times to evaluate meals Plate Method, impact of macronutrients on blood sugar, meal timing, pairing macronutrients and spreading out carbohydrates for better blood glucose management Recommended servings for carbohydrates at meals and snacks Heart health nutrition: sodium and CHF review Brainstormed appropriate meal/snack ideas based on her food preferences Created SMART goals for patient self-care and success. Goals: Check FBG and /or 1-2 hour pc Keep dry oats to 1/4-1/3c dry Try veg and hummus snack Batch cook lentil soup try HS snack Follow-up: SADIQ KAYE follow-up in 2-3 weeks Nan Forbes RDN, VARGAS Certified Diabetes Care and Mechanism Inspector P: [phone] Thank you for this referral
== END ==
PROVIDERS: PCP Family Medicine; Referring Provider Family Medicine; Visit Provider Family Medicine
DX: R06.09 Other forms of dyspnea (principal); E03.9 Hypothyroidism, unspecified; N39.0 Urinary tract infection, site not specified
CPT/HCPCS: 36415; 80053; 81001; 83880

== ENCOUNTER → 2022-11-09 11:29 | Outpatient (CLI) | payer MEDICARE, OTHER, SELFPAY ==
[2022-07-15 17:49] VITALS: BMI 28.3
--- NOTE | 2022-11-09 11:30 | DI.RAD.S_ITS ---
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 COMPARISON: None. FINDINGS: Bones: 5 [id number] vertebrae are present. There is [id number] levoscoliosis centered at L3 level.. Degenerative endplate changes, loss of disc height and bilateral facet arthrosis throughout lumbar spine is seen more notably at L3-4 through L5-S1 levels. There is 6 mm anterolisthesis of L4 on L5. No vertebral body compression fractures. No suspicious bony lesions. Soft tissues: Overlying bowel gas pattern is normal. No suspicious soft tissue calcifications. IMPRESSION: No acute compression fracture is seen in lumbar spine. Degenerative disc disease throughout lumbar spine with likely degenerative anterolisthesis of L4 on L5. Dictated by: Gonsalo Caal M.D. on 11/09/2022 at 11:53 Approved by: Gonsalo Caal M.D. on 11/09/2022 at 11:54
--- NOTE | 2022-11-09 11:30 | DI.RAD.S_ITS ---
PROCEDURE: XR PELVIS 1-2V INDICATIONS: fall 5 days ago from couch onto back, R Low Back /hip pain TECHNIQUE: 1 view(s) of the pelvis acquired. COMPARISON: None. FINDINGS: Bones: No fractures or dislocations. Moderate right worse than left bilateral hip joint osteoarthritic changes are seen. No evidence of avascular necrosis of femoral head. Osteoarthritic changes also seen in bilateral sacroiliac joints and symphysis pubis. No suspicious bony lesions. Significant degenerative disc disease in visualized lower lumbar spine is seen. Soft tissues: Visualized bowel gas pattern is normal. No suspicious soft tissue calcifications. IMPRESSION: Osteoarthritis throughout bony pelvis. No acute fracture or dislocation. No evidence of avascular necrosis. Degenerative disc disease in lower lumbar spine. Dictated by: Gonsalo Caal M.D. on 11/09/2022 at 11:52 Approved by: Gonsalo Caal M.D. on 11/09/2022 at 11:53
== END ==
PROVIDERS: PCP Family Medicine; Referring Provider Student in an Organized Health Care Education/Training Program; Visit Provider Student in an Organized Health Care Education/Training Program
DX: M47.816 Spondylosis without myelopathy or radiculopathy, lumbar region (principal); M47.817 Spondylosis without myelopathy or radiculopathy, lumbosacral region; M51.36 Other intervertebral disc degeneration, lumbar region; M19.09 Primary osteoarthritis, other specified site; M25.559 Pain in unspecified hip; M54.50 Low back pain, unspecified
CPT/HCPCS: 72100; 72170

== ENCOUNTER → 2022-12-13 10:24 | Outpatient (CLI) | payer MEDICARE, OTHER, SELFPAY ==
[2022-07-15 17:49] VITALS: BMI 28.3
--- NOTE | 2022-12-13 10:35 | DI.ECHO.S_ITS ---
[facility]---------+ [facility] +---------+ : : [address] : : [place], [place] : : : : [id number] : : : : Phone: [phone]+ Echocardiogram Report + + :Name: YOLIE GREGG Study Date: 12/13/2022 Height: 62 in : :[facility] ReadingLocation: Weight: 150 lb: : Gender: Female BSA: 1.7 m2 : :: 1935 Age: 87 yrs : :Reason For Study: Left Bundle Branch Block : :Ordering Physician: SPENCER, : :SHELLY Performed By: Josette Goldstein : :Referring: SHELLY STOUT : + + Interpretation Summary 1) Normal left ventricular size with mildly to moderately reduced systolic function (EF 40-45%). 2) There is a severe dyssynchronous contraction pattern, consistent with a conduction abnormality. 3) Mildly enlarged right ventricle with mildly reduced function. 4) There is moderate tricuspid regurgitation. 5) The right ventricular systolic pressure is estimated to be at least 34 mmHg based on an estimated right atrial pressure of 3 mm Hg. 6) Compared to the Echo done 07/16/2022, LVEF has decreased from 45-50% to 40- 45% on this study. Procedure: A two-dimensional transthoracic echocardiogram with color flow and Doppler was performed. The study quality was technically adequate. Comparison is made with the echocardiogram of 07/16/2022. The patient was in atrial fibrillation with heart rates between 70-154 bpm during the exam. Left Ventricle: The left ventricle is normal in size. The ejection fraction is estimated to be 40-45%. There is a severe dyssynchronous contraction pattern, consistent with a conduction abnormality. Diastolic function could not be accurately assessed due to atrial fibrillation. Right Ventricle: The right ventricle is mildly dilated. Right ventricular systolic function is mildly reduced. Atria: The left atrial size is normal. The right atrium is moderately dilated. There is no Doppler evidence for an interatrial shunt. Mitral Valve: The mitral valve is normal. There is no mitral valve stenosis. There is moderate mitral regurgitation. Aortic Valve: The aortic valve is trileaflet. There is no aortic valve stenosis. No aortic regurgitation is present. Tricuspid Valve: The tricuspid valve is normal. There is no tricuspid stenosis. There is moderate tricuspid regurgitation. The right ventricular systolic pressure is estimated to be at least 34 mmHg based on an estimated right atrial pressure of 3 mm Hg. Pulmonic Valve: The pulmonic valve is not well visualized. There is no pulmonic valvular stenosis. There is trace pulmonic regurgitation. Great Vessels: The aortic root is normal size. The ascending aorta is mildly enlarged. The pulmonary artery is normal size. The IVC is of normal diameter and collapses greater than 50% with a sniff. This suggests a low right atrial pressure of 3 mm Hg. Pericardium/ Pleura There is no pericardial effusion. There is no pleural effusion. MMode/2D Measurements & Calculations LVOT diam: 1.7 cm LA A2 area: 15.7 cm2 Ao root diam: 2.9 cm LA A4 area: 14.9 cm2 asc Aorta Diam: 4.0 cm RA area: 21.8 cm2 RVD1 (basal): 4.2 cm LVAd ap4: 17.0 cm2 LVAd ap2: 16.6 cm2 LVAs ap4: 11.8 cm2 LVLd ap2: 5.8 cm LVLs ap4: 5.0 cm LVAs ap2: 12.2 cm2 LVLs ap2: 5.4 cm Doppler Measurements & Calculations TR max jax: 276.9 cm/sec TR max P.7 mmHg Reading Physician:02:52 PM
== END ==
PROVIDERS: PCP Family Medicine; Referring Provider Internal Medicine Cardiovascular Disease; Visit Provider Internal Medicine Cardiovascular Disease
DX: I44.7 Left bundle-branch block, unspecified (principal); R06.09 Other forms of dyspnea
CPT/HCPCS: 93306

== ENCOUNTER 2022-12-13 11:05 | Emergency (ER) | payer MEDICARE, OTHER, SELFPAY ==
[2022-07-15 17:49] VITALS: BMI 28.3
[2022-12-13] VITALS (9 sets, daily range): BP systolic 109–137; BP diastolic 50–97; PULSE 88–128; RESP 16–28; TEMP 37; O2SAT 94–98; BMI 27.4
--- NOTE | 2022-12-13 11:24 | DI.RAD.S_ITS ---
PROCEDURE: XR CHEST 1V INDICATIONS: chest pain TECHNIQUE: One view of the chest was acquired. COMPARISON: [facility], CR, XR CHEST 1V, 07/15/2022, 13:29. FINDINGS: Surgical changes and devices: None. Lungs and pleura: Lungs are clear. No pleural effusions or pneumothorax. Mediastinum: Mediastinal contours appear normal. Heart size is normal. Bones and chest wall: No suspicious bony lesions. Overlying soft tissues appear unremarkable. IMPRESSION: No acute cardiopulmonary findings Approved by: Tim Lamar M.D. on 12/13/2022 at 11:09
[2022-12-13 12:06] LABS: INR 1.6 (0.9-1.3); PTT Partial Thromboplastin Tim 35 SECONDS (26-36)
[2022-12-13 12:07] LABS: Alanine Aminotransferase 22 IU/L (<35); Albumin 4.5 g/dL (3.5-5.0); Albumin Globulin Ratio 1.5 (1.0-2.8); Alkaline Phosphatase 73 U/L (38-126); Aspartate Aminotransferase 32 IU/L (14-36); BUN Creatinine Ratio 29.1 (6-22); Bilirubin Total 0.9 mg/dL (0.2-1.3); Blood Urea Nitrogen 25 mg/dL (7-17); Calcium 9.6 mg/dL (8.4-10.2); Carbon Dioxide 31 mmol/L (22-32); Chloride 96 mmol/L (98-107); Creatine Kinase 25 U/L (30-135); Estimated Glomerular Filt Rate > 60 mL/min (>60); Globulin 3.1 g/dL (1.7-4.1); Glucose 125 mg/dL (80-110); HEMOLYSIS < 15 (0-50); Lipase 146 U/L (23-300); Magnesium 2.3 mg/dL (1.6-2.3); Potassium 3.6 mmol/L (3.4-5.1); Sodium 136 mmol/L (137-145); Total Protein 7.6 g/dL (6.3-8.2)
[2022-12-13 12:09] LABS: Add Manual Diff / Slide Review NO; Basophils Absolute Auto 0 /uL (0-100); Basophils Percent Auto 0.7 % (0-2); Eosinophils Absolute Auto 0 /uL (0-450); Eosinophils Percent Auto 0.9 % (2-4); Hematocrit 49.8 % (36-46); Lymphocytes Absolute Auto 1000 /uL (1100-4500); Lymphocytes Percent Auto 20.6 % (25-40); Mean Corpuscular HGB Conc 34.1 % (30-36); Mean Corpuscular Hemoglobin 30.2 PG (26-34); Mean Corpuscular Volume 88.6 fL (80-100); Monocytes Absolute Auto 600 /uL (0-900); Monocytes Percent Auto 12.9 % (3-14); Neutrophils Absolute Auto 3000 /uL (1500-7000); Neutrophils Percent Auto 64.9 % (50-75); Platelet Count 283 X10^3/uL (150-400); Red Blood Cell Count 5.62 X10^6/uL (4.0-5.2); Red Cell Distribution Width 15.4 % (11.6-14.8); White Blood Cell Count 4.6 X10^3/uL (4.5-11.0)
--- NOTE | 2022-12-13 12:09 | ED.ARRPALP ---
HPI - Arrhythmia/Palpitations General Chief Complaint: Arrhythmia/Palpitations Stated Complaint: HR 120/150 REF by echo Time Seen by Provider: 12/13/22 11:28 Source: patient Mode of arrival: Family Vehicle History of Present Illness HPI narrative: Patient 87-year-old female history of atrial fibrillation on Xarelto congestive heart failure type 2 diabetes presenting today with palpitations. She reports that she woke up thinking of [place] good [place] she actually received a call from the reporting that the was . She had to come in today for an echocardiogram she was very upset her heart rate sped up and the cardiovascular surgical tech sent her to the ED for evaluation. She now was in AFib but is rate controlled. She reports nor no symptoms. No chest pain no shortness of breath no fever chills no abdominal pain no peripheral edema. Related Data Home Medications Medication Instructions Recorded Confirmed acetaminophen 500 mg tablet 1,000 mg PO Q6H PRN Pain (Scale 03/21/19 10/11/22 (Tylenol Extra Strength) Score 1-3) esomeprazole magnesium 20 mg 20 mg PO DAILY 07/10/19 10/11/22 capsule,delayed release (Nexium) empagliflozin 10 mg tablet 10 mg PO DAILY 07/22/22 10/11/22 (Jardiance) metoprolol succinate 100 mg 100 mg PO BID 07/22/22 10/11/22 tablet,extended release 24 hr spironolactone 25 mg tablet 25 mg PO DAILY 07/22/22 10/11/22 Previous Rx's Medication Instructions Recorded rosuvastatin 5 mg tablet 2.5 mg PO DAILY #45 tabs 04/21/21 rivaroxaban 10 mg tablet (Xarelto) See Rx Instructions .Route 04/26/22 .COMPLEX #90 tabs furosemide 20 mg tablet 20 mg PO DAILY #30 tabs 07/17/22 Disabled Parking Permit #1 ea 07/22/22 blood-glucose meter #1 ea 07/22/22 blood sugar diagnostic (Accu-Chek #300 strips 07/28/22 Guide test strips) thyroid (pork) 30 mg tablet See Rx Instructions .Route 10/27/22 ([place] Thyroid) .COMPLEX #90 tabs Allergies Allergy/AdvReac Type Severity Reaction Status Date / Time levothyroxine sodium Allergy Mild itching Verified 12/13/22 11:23 [From Synthroid] liothyronine Allergy Mild Itching Verified 12/13/22 11:23 diltiazem Allergy dizziness, Verified 12/13/22 11:23 nausea, triamterene AdvReac Mild Weakness, Verified 12/13/22 11:23 dizzy spells codeine AdvReac dizziness Verified 12/13/22 11:23 Review of Systems Review of Systems ROS Unobtainable: All systems reviewed & are unremarkable except as noted in HPI and below Patient History Medical History Atrial fibrillation (~2016) Basal cell carcinoma Chicken pox (~1947) Dizzy GERD (gastroesophageal reflux disease) (~1999) Hearing loss (~1994) Hiatal hernia History of urinary incontinence (~2015) Hypothyroidism Insomnia Measles (~194) Mumps (~1949) Osteoarthritis (~1979) Osteopenia (~1979) Prediabetes Preventative health care Retinal detachment (~1993) Rheumatic fever Rubella (~1949) Seasonal allergies (~1949) Tinnitus (~1959) Type 2 diabetes mellitus Vertigo (~1959) Vision disorder Surgical History Anesthesia History of eye surgery History of foot surgery (~1986) History of hysterectomy (~1985) History of knee surgery History of surgery History of tonsillectomy (~193) History of total left knee replacement Status post right knee replacement Family History Father Cancer Mother Diabetes mellitus History of heart disease Stroke Social History household members: none Smoking Status: Former smoker Tobacco: How many years used: 20 quit status: has quit before alcohol intake: current substance use type: marijuana Smoking Status: Former smoker alcohol intake frequency: a few times a week Substance Use Type: marijuana Exam Initial Vital Signs Initial Vital Signs: Vital Signs Temperature 98.6 F 12/13/22 11:19 Pulse Rate 125 H 12/13/22 11:19 Respiratory Rate 16 12/13/22 11:19 Blood Pressure 126/88 12/13/22 11:19 Pulse Oximetry 98 12/13/22 11:19 Oxygen Delivery Method Room Air 12/13/22 11:19 GENERAL: Alert pleasant 87-year-old female and in no acute distress. HEENT: Head atraumatic,EOMI, pupils reactive, face symmetric, moist mucous membranes CARDIOVASCULAR: Irregularly irregular tachycardic RESPIRATORY: Breath sounds equal bilaterally, no wheezes rales or rhonchi. ABDOMEN: Soft, nontender. Normoactive bowel sounds all 4 quadrants. No guarding or rebound. EXTREMITIES: Normal range of motion, no clubbing or edema. Neurovascularly intact NEUROLOGICAL: Alert and oriented x4. SKIN: Warm, dry, no laceration, no petechiae, no rashes or lesions. Course Orders Ordered: ED Orders 12/13/22 11:24 XR chest 1V Stat EKG-12 Lead Stat 12/13/22 11:30 Complete Blood Count AUTO DIFF Stat Comprehensive Metabolic Panel Stat Lipase Stat Magnesium Stat PTT Partial Thromboplastin Steven Stat Prothrombin Time INR Stat Troponin & CK Cardiac Panel Stat Discontinued Medications Aspirin (Aspirin 81 Mg Chew Tab) 324 mg PO NOW ONE Stop: 12/13/22 11:25 Last Admin: 12/13/22 11:36 Dose: Not Given Documented By: RB Vital Signs Vital signs: Vital Signs - 8 hr 12/13/22 11:19 12/13/22 11:21 12/13/22 11:23 Temperature 98.6 F Pulse Rate 125 H 128 H Respiratory Rate 16 21 Blood Pressure 126/88 137/97 H Pulse Oximetry 98 Oxygen Delivery Method Room Air 12/13/22 11:23 12/13/22 11:30 12/13/22 11:30 Temperature Pulse Rate 127 H 116 H Respiratory Rate 25 H 18 Blood Pressure 130/78 Pulse Oximetry 96 97 Oxygen Delivery Method 12/13/22 11:45 12/13/22 11:46 12/13/22 11:46 Temperature Pulse Rate 89 97 H Respiratory Rate 20 21 Blood Pressure 112/50 L Pulse Oximetry 94 94 Oxygen Delivery Method 12/13/22 12:00 12/13/22 12:00 12/13/22 12:15 Temperature Pulse Rate 95 H Respiratory Rate 17 Blood Pressure 109/70 115/61 Pulse Oximetry 94 Oxygen Delivery Method 12/13/22 12:15 12/13/22 12:50 Temperature Pulse Rate 104 H 88 Respiratory Rate 28 H 19 Blood Pressure 121/64 Pulse Oximetry 94 98 Oxygen Delivery Method Room Air MDM - Arrhythmia/Palpitations Lab Data 12/13/22 11:30 12/13/22 11:30 Labs: Lab Results 12/13/22 12/13/22 12/13/22 Range/Units 11:30 11:30 11:30 WBC 4.6 (4.5-11.0) X10^3/uL RBC 5.62 H (4.0-5.2) X10^6/uL Hgb 17.0 H (12.0-16.0) g/dL Hct 49.8 H (36-46) % MCV 88.6 (80-100) fL MCH 30.2 (26-34) PG MCHC 34.1 (30-36) % RDW 15.4 H (11.6-14.8) % Plt Count 283 (150-400) X10^3/uL Neut % (Auto) 64.9 (50-75) % Lymph % (Auto) 20.6 L (25-40) % [place] % (Auto) 12.9 (3-14) % Eos % (Auto) 0.9 L (2-4) % Baso % (Auto) 0.7 (0-2) % Neut # (Auto) 3000 (2090-7573) /uL Lymph # (Auto) 1000 L (9784-8727) /uL [place] # (Auto) 600 (0-900) /uL Eos # (Auto) 0 (0-450) /uL Baso # (Auto) 0 (0-100) /uL PT 18.0 H (10.1-12.7) SECONDS INR 1.6 H (0.9-1.3) APTT 35 (26-36) SECONDS Sodium 136 L (137-145) mmol/L Potassium 3.6 (3.4-5.1) mmol/L Chloride 96 L (98-107) mmol/L Carbon Dioxide 31 (22-32) mmol/L BUN 25 H (7-17) mg/dL Creatinine 0.86 (0.52-1.04) mg/dL Estimated GFR > 60 (>60) mL/min BUN/Creatinine Ratio 29.1 H (6-22) Glucose 125 H (80-110) mg/dL Calcium 9.6 (8.4-10.2) mg/dL Magnesium 2.3 (1.6-2.3) mg/dL Total Bilirubin 0.9 (0.2-1.3) mg/dL AST 32 (14-36) IU/L ALT 22 (<35) IU/L Alkaline Phosphatase 73 (38-126) U/L Total Creatine Kinase 25 L (30-135) U/L Troponin I < 0.012 (0.01-0.034) ng/mL Total Protein 7.6 (6.3-8.2) g/dL Albumin 4.5 (3.5-5.0) g/dL Globulin 3.1 (1.7-4.1) g/dL Albumin/Globulin Ratio 1.5 (1.0-2.8) Lipase 146 (23-300) U/L Imaging Data Chest x-ray: Radiologist's Impresson: PROCEDURE:? XR CHEST 1V ? INDICATIONS:? chest pain ? TECHNIQUE:? One view of the chest was acquired.? ? COMPARISON:? [facility], , XR CHEST 1V, 07/15/2022, 13:29. ? FINDINGS:? ? Surgical changes and devices:? None.? ? Lungs and pleura:? Lungs are clear.? No pleural effusions or pneumothorax.? ? Mediastinum:? Mediastinal contours appear normal.? Heart size is normal.? ? Bones and chest wall:? No suspicious bony lesions.? Overlying soft tissues appear unremarkable.? ? IMPRESSION:? No acute cardiopulmonary findings ? ? ? Approved by: Tim Lamar M.D. on 12/13/2022 at 11:09? ECG Data Interpretation: Atrial fibrillation rate 108 similar to previous EKG no ST changes mild artifact noted. [facility] Narrative Medical decision making narrative: Patient 87-year-old female history of atrial fibrillation presents today with palpitations and anxiety after learning that close friend recently . She is feeling much better her heart rate is controlled she is anticoagulated. Labs have been reviewed and are stable without any clinical significance. Chest x-ray is also clear without any abnormality. Patient was really having some palpitations causing her heart rate to go up she was quite anxious and sad about her news. She is now feeling better her heart rate is controlled. At this time there is no need for any further workup. Discharge Plan Departure Patient Disposition: Home Clinical Impression: Atrial fibrillation Instructions: DI for Atrial Fibrillation Activity Restrictions/Additional Instructions: *You have been diagnosed with atrial fibrillation *What to do: So sorry for your loss. At this time your blood work is reassuring. *Continue to take medications as directed *Follow up with your primary care provider in 2-3 days or call [phone] *Return to ER if you should have increasing palpitations chest pain shortness of breath or any new, worsening or concerning symptoms Prescriptions: No Action Xarelto 10 mg tablet See Rx Instructions .ROUTE .COMPLEX Qty: 90 0RF Dose Instruction: TAKE 1 TABLET BY MOUTH DAILY Rx Instructions: TAKE 1 TABLET BY MOUTH DAILY (DME) Accu-Chek Guide test strips Strip See Rx Instructions .ROUTE .COMPLEX Qty: 300 0RF Dose Instruction: USE TO CHECK BLOOD SUGAR FOUR TIMES DAILY Rx Instructions: USE TO CHECK BLOOD SUGAR FOUR TIMES DAILY [place] Thyroid 30 mg tablet See Rx Instructions .ROUTE .COMPLEX Qty: 90 0RF Dose Instruction: TAKE 1 TABLET BY MOUTH DAILY. FOLLOW UP WITH PCP Rx Instructions: TAKE 1 TABLET BY MOUTH DAILY. FOLLOW UP WITH PCP esomeprazole magnesium [Nexium] 20 mg capsule,delayed release(DR/EC) 20 mg PO DAILY rosuvastatin 5 mg tablet 2.5 mg PO DAILY Qty: 45 3RF spironolactone 25 mg tablet 25 mg PO DAILY metoprolol succinate 100 mg tablet extended release 24 hr 100 mg PO BID Jardiance 10 mg tablet 10 mg PO DAILY Patient Comments: TAKE 1 TABLET BY MOUTH DAILY (DME) Disabled Parking Permit See Rx Instructions .Route .MEDSUPPLY Qty: 1 0RF Rx Instructions: I find this patient to be medically disabled and qualified for Disabled Parking as indicated and signed on the accompanying Disabled Parking Application for individuals. (DME) blood-glucose meter Kit See Rx Instructions .Route Qty: 1 0RF Rx Instructions: Use to take blood sugar 4x daily acetaminophen [Tylenol Extra Strength] 500 mg tablet 1,000 mg PO Q6H PRN (Reason: Pain (Scale Score 1-3)) furosemide 20 mg Tablet 20 mg PO DAILY Qty: 30 0RF Referrals: Joey Duncan DO [Primary Care Provider] - Stand Alone Forms: Patient Portal/API
[2022-12-13 12:19] LABS: Troponin I < 0.012 ng/mL (0.01-0.034)
== END 2022-12-13 12:51 | disposition home or self-care (01) ==
PROVIDERS: Emergency Provider Emergency Medicine; PCP Family Medicine
DX: I48.91 Unspecified atrial fibrillation (principal); R07.9 Chest pain, unspecified; Z79.01 Long term (current) use of anticoagulants
CPT/HCPCS: 36415; 71045; 80053; 82550; 83690; 83735; 84484; 85025; 85610; 85730; 93005; 93306; 99284

== ENCOUNTER 2023-02-05 07:41 | Emergency (ER) | payer MEDICARE, SELFPAY ==
[2022-07-15 17:49] VITALS: BMI 28.3
[2023-02-05] VITALS (8 sets, daily range): BP systolic 122–126; BP diastolic 72–83; PULSE 60–101; RESP 16–29; TEMP 36.6; O2SAT 91–98; BMI 27.4
--- NOTE | 2023-02-05 08:04 | ED.ARRPALP ---
HPI - Arrhythmia/Palpitations General Chief Complaint: Arrhythmia/Palpitations Stated Complaint: afib, fluttering in chest/SOB Time Seen by Provider: 02/05/23 07:44 Source: patient and EMS Mode of arrival: EMS Limitations: no limitations History of Present Illness HPI narrative: Patient is a 87-year-old female. Does have history of atrial fibrillation. Is on metoprolol. Also is on rivaroxaban. Here for evaluation of feeling like she is in AFib. She states that last night she felt like she went into AFib. She is not having chest pain. No lightheadedness. The symptoms continued this morning. She did take her metoprolol last night. Has not taken any of her medicines this morning. She did take her anticoagulation last night but has missed it a couple times over the past week or so. No fevers. Does have some shortness of breath. Related Data Home Medications Medication Instructions Recorded Confirmed acetaminophen 500 mg tablet 1,000 mg PO Q6H PRN Pain (Scale 03/21/19 10/11/22 (Tylenol Extra Strength) Score 1-3) esomeprazole magnesium 20 mg 20 mg PO DAILY 07/10/19 10/11/22 capsule,delayed release (Nexium) empagliflozin 10 mg tablet 10 mg PO DAILY 07/22/22 10/11/22 (Jardiance) metoprolol succinate 100 mg 100 mg PO BID 07/22/22 10/11/22 tablet,extended release 24 hr spironolactone 25 mg tablet 25 mg PO DAILY 07/22/22 10/11/22 Previous Rx's Medication Instructions Recorded rosuvastatin 5 mg tablet 2.5 mg PO DAILY #45 tabs 04/21/21 rivaroxaban 10 mg tablet (Xarelto) See Rx Instructions .Route 04/26/22 .COMPLEX #90 tabs furosemide 20 mg tablet 20 mg PO DAILY #30 tabs 07/17/22 Disabled Parking Permit #1 ea 07/22/22 blood-glucose meter #1 ea 07/22/22 blood sugar diagnostic (Accu-Chek #300 strips 07/28/22 Guide test strips) thyroid (pork) 30 mg tablet See Rx Instructions .Route 10/27/22 ([place] Thyroid) .COMPLEX #90 tabs Allergies Allergy/AdvReac Type Severity Reaction Status Date / Time levothyroxine sodium Allergy Mild itching Verified 12/13/22 11:23 [From Synthroid] liothyronine Allergy Mild Itching Verified 12/13/22 11:23 diltiazem Allergy dizziness, Verified 12/13/22 11:23 nausea, triamterene AdvReac Mild Weakness, Verified 12/13/22 11:23 dizzy spells codeine AdvReac dizziness Verified 12/13/22 11:23 Review of Systems Cardiovascular Cardiovascular: Reports system reviewed and no additional complaints, except as documented Respiratory Respiratory: Reports system reviewed and no additional complaints, except as documented Gastrointestinal Gastrointestinal: Reports system reviewed and no additional complaints, except as documented Patient History Medical History Atrial fibrillation (~2016) Basal cell carcinoma Chicken pox (~194) Dizzy GERD (gastroesophageal reflux disease) (~1999) Hearing loss (~1994) Hiatal hernia History of urinary incontinence (~2015) Hypothyroidism Insomnia Measles (~194) Mumps (~1949) Osteoarthritis (~1979) Osteopenia (~1979) Prediabetes Preventative health care Retinal detachment (~1993) Rheumatic fever Rubella (~1949) Seasonal allergies (~1949) Tinnitus (~1959) Type 2 diabetes mellitus Vertigo (~1959) Vision disorder Surgical History Anesthesia History of eye surgery History of foot surgery (~1986) History of hysterectomy (~1985) History of knee surgery History of surgery History of tonsillectomy (~193) History of total left knee replacement Status post right knee replacement Family History Father Cancer Mother Diabetes mellitus History of heart disease Stroke Social History household members: none Smoking Status: Former smoker Tobacco: How many years used: 20 quit status: has quit before alcohol intake: current substance use type: marijuana Smoking Status: Former smoker alcohol intake frequency: a few times a week Substance Use Type: marijuana Exam Initial Vital Signs Initial Vital Signs: Vital Signs Pulse Rate 60 02/05/23 07:46 Blood Pressure 122/83 02/05/23 07:46 Pulse Oximetry 91 02/05/23 07:46 HENMT Head: normal to inspection and normocephalic Resp Effort & Inspection: normal respiratory effort Auscultation: clear to auscultation bilaterally Cardio Rate: regular rate Rhythm: abnormal rhythm GI Inspection: normal to inspection Skin General: no rashes or lesions noted Extrem General: edema Course Orders Ordered: ED Orders 02/05/23 07:44 EKG-12 Lead Stat 02/05/23 08:09 XR chest 1V Stat 02/05/23 08:15 Complete Blood Count AUTO DIFF Stat Comprehensive Metabolic Panel Stat Lipase Stat Magnesium Stat Discontinued Medications Metoprolol Succinate (Metoprolol Er 50 Mg Tablet) 50 mg PO NOW ONE Stop: 02/05/23 08:03 Last Admin: 02/05/23 08:12 Dose: 50 mg Documented By: DOYLE Vital Signs Vital signs: Vital Signs - 8 hr 02/05/23 07:50 02/05/23 08:12 02/05/23 07:46 Temperature 97.8 F Pulse Rate 60 101 H Respiratory Rate 16 Blood Pressure 122/83 122/83 122/83 Pulse Oximetry 97 Oxygen Delivery Method Room Air 02/05/23 07:46 02/05/23 08:00 02/05/23 08:30 Temperature Pulse Rate 60 96 H 89 Respiratory Rate 24 18 Blood Pressure Pulse Oximetry 91 98 96 Oxygen Delivery Method MDM - Arrhythmia/Palpitations Lab Data Attestation: I reviewed the patient's lab results. 02/05/23 08:15 02/05/23 08:15 Labs: Lab Results 02/05/23 02/05/23 02/05/23 Range/Units 08:15 08:15 08:15 WBC 5.9 (4.5-11.0) X10^3/uL RBC 5.07 (4.0-5.2) X10^6/uL Hgb 15.2 (12.0-16.0) g/dL Hct 45.1 (36-46) % MCV 88.9 (80-100) fL MCH 30.0 (26-34) PG MCHC 33.7 (30-36) % RDW 15.7 H (11.6-14.8) % Plt Count 223 (150-400) X10^3/uL Neut % (Auto) 75.3 H (50-75) % Lymph % (Auto) 12.8 L (25-40) % [place] % (Auto) 10.7 (3-14) % Eos % (Auto) 0.8 L (2-4) % Baso % (Auto) 0.4 (0-2) % Neut # (Auto) 4400 (1172-6261) /uL Lymph # (Auto) 800 L (3086-9240) /uL [place] # (Auto) 600 (0-900) /uL Eos # (Auto) 0 (0-450) /uL Baso # (Auto) 0 (0-100) /uL Sodium 135 L (137-145) mmol/L Potassium 4.1 (3.4-5.1) mmol/L Chloride 99 (98-107) mmol/L Carbon Dioxide 26 (22-32) mmol/L BUN 26 H (7-17) mg/dL Creatinine 0.74 (0.52-1.04) mg/dL Estimated GFR > 60 (>60) mL/min BUN/Creatinine Ratio 35.1 H (6-22) Glucose 135 H (80-110) mg/dL Calcium 9.3 (8.4-10.2) mg/dL Magnesium 2.2 (1.6-2.3) mg/dL Total Bilirubin 0.8 (0.2-1.3) mg/dL AST 39 H (14-36) IU/L ALT 31 (<35) IU/L Alkaline Phosphatase 62 (38-126) U/L Total Protein 6.9 (6.3-8.2) g/dL Albumin 4.0 (3.5-5.0) g/dL Globulin 2.9 (1.7-4.1) g/dL Albumin/Globulin Ratio 1.4 (1.0-2.8) Lipase 105 (23-300) U/L Imaging Data Chest x-ray: Radiologist's Impresson: PROCEDURE:? XR CHEST 1V ? INDICATIONS:? SOB ? TECHNIQUE:? One view of the chest was acquired.? ? COMPARISON:? [facility], CR, XR CHEST 1V, 07/15/2022, 13:29.? [facility], CR, XR CHEST 1V, 12/13/2022, 11:29. ? FINDINGS:? ? Surgical changes and devices:? None.? ? Lungs and pleura:? Left lower lobe scars or atelectasis.? No pleural effusions or pneumothorax.? ? Mediastinum:? Mediastinal contours appear normal.? Heart size is normal.? ? Bones and chest wall:? No suspicious bony lesions.? Overlying soft tissues appear unremarkable.? ? ? IMPRESSION:? No acute cardiopulmonary disease ECG Data Attestation: I personally reviewed and interpreted this ECG as follows: Interpretation: Atrial fibrillation Ventricular rate 89 Normal axis Normal QRS No ST T wave changes MDM Narrative Medical decision making narrative: Patient is in AFib but she is rate controlled. She has had an issue with increasing amount of paroxysmal AFib over the past couple days. She has not been taking her anticoagulation consistently so she is not a candidate for cardioversion. She is not having chest pain. Her chest x-ray is unremarkable. Review of her medicines shows that she should be taking 100 mg of extended release metoprolol in the morning and 50 mg at night but appears that she is only been taking 50 mg in the morning and 50 at night. We went over this with her. Will discharge patient home with instructions to increase her metoprolol to the dose that she should be taking. She was also encouraged to continue to take her anticoagulation as directed she may need an outpatient cardioversion. She was given return precautions. She expressed understanding and agreement. Discharge Plan Departure Patient Disposition: Home Clinical Impression: Atrial fibrillation Instructions: DI for Atrial Fibrillation Activity Restrictions/Additional Instructions: I do recommend that you continue to take all of your medications as directed. You should be taking your metoprolol extended release medication at 100 mg in the morning and 50 mg at night. It is also important that you take your blood thinner on a regular basis as well. On Tuesday contact your primary doctor and also your crime data specialist for follow-up. Return to the emergency department for new or worsening symptoms. Prescriptions: No Action Xarelto 10 mg tablet See Rx Instructions .ROUTE .COMPLEX Qty: 90 0RF Dose Instruction: TAKE 1 TABLET BY MOUTH DAILY Rx Instructions: TAKE 1 TABLET BY MOUTH DAILY (DME) Accu-Chek Guide test strips Strip See Rx Instructions .ROUTE .COMPLEX Qty: 300 0RF Dose Instruction: USE TO CHECK BLOOD SUGAR FOUR TIMES DAILY Rx Instructions: USE TO CHECK BLOOD SUGAR FOUR TIMES DAILY [place] Thyroid 30 mg tablet See Rx Instructions .ROUTE .COMPLEX Qty: 90 0RF Dose Instruction: TAKE 1 TABLET BY MOUTH DAILY. FOLLOW UP WITH PCP Rx Instructions: TAKE 1 TABLET BY MOUTH DAILY. FOLLOW UP WITH PCP esomeprazole magnesium [Nexium] 20 mg capsule,delayed release(DR/EC) 20 mg PO DAILY rosuvastatin 5 mg tablet 2.5 mg PO DAILY Qty: 45 3RF spironolactone 25 mg tablet 25 mg PO DAILY metoprolol succinate 100 mg tablet extended release 24 hr 100 mg PO BID Jardiance 10 mg tablet 10 mg PO DAILY Patient Comments: TAKE 1 TABLET BY MOUTH DAILY (DME) Disabled Parking Permit See Rx Instructions .Route .MEDSUPPLY Qty: 1 0RF Rx Instructions: I find this patient to be medically disabled and qualified for Disabled Parking as indicated and signed on the accompanying Disabled Parking Application for individuals. (DME) blood-glucose meter Kit See Rx Instructions .Route Qty: 1 0RF Rx Instructions: Use to take blood sugar 4x daily acetaminophen [Tylenol Extra Strength] 500 mg tablet 1,000 mg PO Q6H PRN (Reason: Pain (Scale Score 1-3)) furosemide 20 mg Tablet 20 mg PO DAILY Qty: 30 0RF Referrals: Joey Duncan, [Primary Care Provider] - Stand Alone Forms: Patient Portal/API
--- NOTE | 2023-02-05 08:09 | DI.RAD.S_ITS ---
PROCEDURE: XR CHEST 1V INDICATIONS: SOB TECHNIQUE: One view of the chest was acquired. COMPARISON: [facility], CR, XR CHEST 1V, 07/15/2022, 13:29. [facility], CR, XR CHEST 1V, 12/13/2022, 11:29. FINDINGS: Surgical changes and devices: None. Lungs and pleura: Left lower lobe scars or atelectasis. No pleural effusions or pneumothorax. Mediastinum: Mediastinal contours appear normal. Heart size is normal. Bones and chest wall: No suspicious bony lesions. Overlying soft tissues appear unremarkable. IMPRESSION: No acute cardiopulmonary disease. Dictated by: Edmundo Jarvis M.D. on 02/05/2023 at 8:59 Approved by: Edmundo Jarvis M.D. on 02/05/2023 at 8:59
[2023-02-05] MEDS: METOPROLOL ER 50 MG TABLET PO (08:12)
[2023-02-05 08:24] LABS: Add Manual Diff / Slide Review NO; Basophils Absolute Auto 0 /uL (0-100); Basophils Percent Auto 0.4 % (0-2); Eosinophils Absolute Auto 0 /uL (0-450); Eosinophils Percent Auto 0.8 % (2-4); Hematocrit 45.1 % (36-46); Hemoglobin 15.2 g/dL (12.0-16.0); Lymphocytes Absolute Auto 800 /uL (1100-4500); Lymphocytes Percent Auto 12.8 % (25-40); Mean Corpuscular HGB Conc 33.7 % (30-36); Mean Corpuscular Volume 88.9 fL (80-100); Monocytes Absolute Auto 600 /uL (0-900); Monocytes Percent Auto 10.7 % (3-14); Neutrophils Absolute Auto 4400 /uL (1500-7000); Neutrophils Percent Auto 75.3 % (50-75); Platelet Count 223 X10^3/uL (150-400); Red Blood Cell Count 5.07 X10^6/uL (4.0-5.2); Red Cell Distribution Width 15.7 % (11.6-14.8); White Blood Cell Count 5.9 X10^3/uL (4.5-11.0)
[2023-02-05 08:37] LABS: Alanine Aminotransferase 31 IU/L (<35); Albumin Globulin Ratio 1.4 (1.0-2.8); Alkaline Phosphatase 62 U/L (38-126); Aspartate Aminotransferase 39 IU/L (14-36); BUN Creatinine Ratio 35.1 (6-22); Bilirubin Total 0.8 mg/dL (0.2-1.3); Blood Urea Nitrogen 26 mg/dL (7-17); Calcium 9.3 mg/dL (8.4-10.2); Carbon Dioxide 26 mmol/L (22-32); Chloride 99 mmol/L (98-107); Estimated Glomerular Filt Rate > 60 mL/min (>60); Globulin 2.9 g/dL (1.7-4.1); Glucose 135 mg/dL (80-110); HEMOLYSIS 20 (0-50); Potassium 4.1 mmol/L (3.4-5.1); Sodium 135 mmol/L (137-145); Total Protein 6.9 g/dL (6.3-8.2)
[2023-02-05 08:38] LABS: Lipase 105 U/L (23-300); Magnesium 2.2 mg/dL (1.6-2.3)
== END 2023-02-05 10:06 | disposition home or self-care (01) ==
PROVIDERS: Emergency Provider Emergency Medicine; PCP Family Medicine
DX: I48.91 Unspecified atrial fibrillation (principal); Z79.01 Long term (current) use of anticoagulants
CPT/HCPCS: 36415; 71045; 80053; 83690; 83735; 85025; 93005; 93010; 99283; 99284

== ENCOUNTER → 2023-03-14 07:44 | Outpatient (CLI) | payer MEDICARE, SELFPAY ==
[2022-07-15 17:49] VITALS: BMI 28.3
[2023-03-14 08:18] LABS: Add Manual Diff / Slide Review NO; Basophils Absolute Auto 0 /uL (0-100); Basophils Percent Auto 0.5 % (0-2); Eosinophils Absolute Auto 0 /uL (0-450); Eosinophils Percent Auto 0.7 % (2-4); Hematocrit 47.2 % (36-46); Lymphocytes Absolute Auto 800 /uL (1100-4500); Lymphocytes Percent Auto 12.2 % (25-40); Mean Corpuscular Hemoglobin 30.7 PG (26-34); Mean Corpuscular Volume 90.3 fL (80-100); Monocytes Absolute Auto 700 /uL (0-900); Neutrophils Absolute Auto 5000 /uL (1500-7000); Neutrophils Percent Auto 75.6 % (50-75); Platelet Count 269 X10^3/uL (150-400); Red Blood Cell Count 5.23 X10^6/uL (4.0-5.2); Red Cell Distribution Width 14.7 % (11.6-14.8); White Blood Cell Count 6.6 X10^3/uL (4.5-11.0)
[2023-03-14 08:23] LABS: Hemoglobin A1C% w Est Avg Glu 6.7 % (4.0-6.0)
[2023-03-14 08:46] LABS: Alanine Aminotransferase 20 IU/L (<35); Albumin 4.2 g/dL (3.5-5.0); Albumin Globulin Ratio 1.7 (1.0-2.8); Alkaline Phosphatase 70 U/L (38-126); Aspartate Aminotransferase 28 IU/L (14-36); BUN Creatinine Ratio 27.8 (6-22); Blood Urea Nitrogen 22 mg/dL (7-17); Calcium 9.7 mg/dL (8.4-10.2); Carbon Dioxide 28 mmol/L (22-32); Chloride 98 mmol/L (98-107); Estimated Glomerular Filt Rate > 60 mL/min (>60); Globulin 2.5 g/dL (1.7-4.1); Glucose 146 mg/dL (80-110); HEMOLYSIS < 15 (0-50); Potassium 3.8 mmol/L (3.4-5.1); Sodium 136 mmol/L (137-145); Total Protein 6.7 g/dL (6.3-8.2)
[2023-03-14 08:49] LABS: Free T4, Direct Thyroxine 1.33 ng/dL (0.78-2.19)
[2023-03-14 09:04] LABS: Thyroid Stimulating Hormone 3.17 uIU/mL (0.47-4.68)
== END ==
PROVIDERS: PCP Family Medicine; Referring Provider Family Medicine; Visit Provider Family Medicine
DX: Z00.00 Encounter for general adult medical examination without abnormal findings (principal); E11.9 Type 2 diabetes mellitus without complications; E03.9 Hypothyroidism, unspecified; E78.5 Hyperlipidemia, unspecified; I48.11 Longstanding persistent atrial fibrillation
CPT/HCPCS: 36415; 80053; 83036; 84439; 84443; 85025

== ENCOUNTER → 2023-04-25 16:07 | Outpatient (CLI) | payer MEDICARE, SELFPAY ==
[2022-07-15 17:49] VITALS: BMI 28.3
== END ==
PROVIDERS: PCP Family Medicine; Visit Provider Physician Assistant
DX: R30.0 Dysuria (principal)
CPT/HCPCS: 87077; 87086; 87186

== ENCOUNTER → 2023-06-13 10:11 | Outpatient (CLI) | payer MEDICARE, SELFPAY ==
[2022-07-15 17:49] VITALS: BMI 28.3
--- NOTE | 2023-06-13 21:41 | DI.NM.S_ITS ---
DATE OF SERVICE: 06/13/2023 PROCEDURE: Pharmacological perfusion study. INDICATIONS: persistent AFib. with underlying left bundle branch block, RADIOPHARMACEUTICAL: 25.9 mCi technetium-99m Myoview IV was injected at rest and 11.0 mCi technetium-99m Myoview IV was injected at rest. CARDIAC STRESS: Patient underwent IV Lexiscan perfusion study under the supervision of an attending staff. She received IV Lexiscan as per protocol. Resting blood pressure 118/82 mmHg. Baseline rhythm atrial fibrillation with controlled ventricular rate with incomplete left bundle branch block. Patient also has secondary repolarization changes. During stress, no new convincing ischemic changes. Heart rate went up to 120 with persistent AFib. Occasional PVCs. Patient had nausea, headache and chest tightness during Lexiscan infusion, which resolved in 5 minutes in recovery. RAW DATA: There is a significant breast shadow seen. Increased subdiaphragmatic activity. GATED STUDY: Resting LV ejection fraction 50% and stress LV ejection fraction 57% without any obvious wall motion abnormalities. Resting end- diastolic volume 54 mL. TID ratio 1.04, which is within normal limits. Lung/heart ratio 0.34, which is within normal limits. MYOCARDIAL PERFUSION SCAN: Please note, that this patient does not have any stress prone images. Stress supine and resting supine images were compared to each other. There appears to be predominantly fixed, moderately decreased perfusion of mid to distal septum extending into the apex without any significant reversible ischemia. Anterior wall is spared. Hence, most likely this is due to underlying left bundle branch block. Patient had pharmacological perfusion study in April 2019. At that time, also had similar perfusion defect, which completely resolved during prone images. In this study, there is no prone images, but defect is similar. Hence, most likely due to underlying left bundle branch block. CONCLUSION: I will call this study likely a normal myocardial perfusion study with mid to distal septum and apical perfusion defect, likely due to left bundle branch block as anterior wall is spared. Similar perfusion defect was seen in April 2019, which completely resolved during stress prone images. On today's study, stress prone images could not be performed due to shoulder pain. Stress left ventricular ejection fraction 57% and resting LV ejection 50%. Underlying persistent atrial fibrillation. Overall, low-risk myocardial perfusion scan. Uma Suarez - LEAF SUCKER OPERATOR/fn/ec doc#: [id number]/job#: [id number] dd: 06/13/2023 16:34:00 dt: 06/13/2023 21:14:00 DICTATING MD/COPIES TO: Carla De León MD COPIES MNE: DARREL;
--- NOTE | 2023-06-14 09:57 | DI.NM.S_ITS ---
DATE OF SERVICE: Dictating the pharmacological DICTATION ENDS HERE Uma Suarez - LAUNDRY HOUSEKEEPING AIDE/irais/ec doc#: [id number]/job#: [id number] dd: 06/13/2023 16:31:00 dt: 06/13/2023 21:07:00 DICTATING MD/COPIES TO: Carla De León MD COPIES MNE: DARREL;
== END ==
PROVIDERS: PCP Family Medicine; Referring Provider Internal Medicine Cardiovascular Disease; Visit Provider Internal Medicine Cardiovascular Disease
DX: I48.91 Unspecified atrial fibrillation (principal); I42.9 Cardiomyopathy, unspecified
CPT/HCPCS: 78452; 93017; A9502; J2785

== ENCOUNTER → 2023-09-16 08:42 | Outpatient (CLI) | payer MEDICARE, SELFPAY ==
[2023-08-30 14:17] VITALS: BMI 28.3
[2023-09-16 10:35] LABS: Hemoglobin A1C% w Est Avg Glu 6.7 % (4.0-6.0)
[2023-09-16 10:49] LABS: Cholesterol 153 mg/dL (140-199); HDL Cholesterol 58 mg/dL (40-60); LDL Cholesterol Calculated 71 mg/dL (<100); Triglycerides 121 mg/dL (35-150)
[2023-09-16 11:18] LABS: Creatinine Urine Random 63.8 mg/dL
[2023-09-16 11:21] LABS: Microalbumi Creatinin Ratio Ur 10.9 ug/mg CR (<30); Microalbumin Urine Random 0.7 mg/dL (0-1.6)
== END ==
PROVIDERS: PCP Family Medicine; Referring Provider Family Medicine; Visit Provider Family Medicine
DX: E11.9 Type 2 diabetes mellitus without complications (principal); E78.2 Mixed hyperlipidemia
CPT/HCPCS: 36415; 80061; 82043; 82570; 83036

== ENCOUNTER → 2024-01-09 08:29 | Outpatient (CLI) | payer MEDICARE, SELFPAY ==
[2023-08-30 14:17] VITALS: BMI 28.3
[2024-01-09 09:30] LABS: Hematocrit 42.7 % (36-46); Hemoglobin 14.3 g/dL (12.0-16.0); Mean Corpuscular HGB Conc 33.6 % (30-36); Mean Corpuscular Hemoglobin 30.1 PG (26-34); Mean Corpuscular Volume 89.7 fL (80-100); Platelet Count 205 X10^3/uL (150-400); Red Blood Cell Count 4.76 X10^6/uL (4.0-5.2); Red Cell Distribution Width 16.4 % (11.6-14.8); White Blood Cell Count 3.8 X10^3/uL (4.5-11.0)
[2024-01-09 10:15] LABS: BUN Creatinine Ratio 37.2 (6-22); Blood Urea Nitrogen 29 mg/dL (7-17); Carbon Dioxide 25 mmol/L (22-32); Chloride 105 mmol/L (98-107); Cholesterol 154 mg/dL (140-199); Estimated Glomerular Filt Rate > 60 mL/min (>60); Glucose 121 mg/dL (80-110); HDL Cholesterol 56 mg/dL (40-60); HEMOLYSIS < 15 (0-50); LDL Cholesterol Calculated 81 mg/dL (<100); Potassium 4.1 mmol/L (3.4-5.1); Sodium 136 mmol/L (137-145); Triglycerides 86 mg/dL (35-150)
[2024-01-09 11:25] LABS: Hemoglobin A1C% w Est Avg Glu 6.1 % (4.0-6.0)
== END ==
LOC: LAB 08:31
PROVIDERS: PCP Family Medicine; Referring Provider Nurse Practitioner Acute Care; Visit Provider Nurse Practitioner Acute Care
DX: I48.0 Paroxysmal atrial fibrillation (principal); E11.9 Type 2 diabetes mellitus without complications; E78.5 Hyperlipidemia, unspecified; I42.9 Cardiomyopathy, unspecified
CPT/HCPCS: 36415; 80048; 80061; 83036; 85027

== ENCOUNTER → 2024-07-12 08:21 | Outpatient (CLI) | payer MEDICARE, SELFPAY ==
[2023-08-30 14:17] VITALS: BMI 28.3
[2024-07-12 08:59] LABS: Add Manual Diff / Slide Review NO; Basophils Absolute Auto 0 /uL (0-100); Basophils Percent Auto 0.7 % (0-2); Eosinophils Absolute Auto 100 /uL (0-450); Eosinophils Percent Auto 1.5 % (2-4); Hemoglobin 15.2 g/dL (12.0-16.0); Lymphocytes Absolute Auto 800 /uL (1100-4500); Lymphocytes Percent Auto 15.6 % (25-40); Mean Corpuscular HGB Conc 33.1 % (30-36); Mean Corpuscular Hemoglobin 30.1 PG (26-34); Mean Corpuscular Volume 90.8 fL (80-100); Monocytes Absolute Auto 600 /uL (0-900); Monocytes Percent Auto 11.6 % (3-14); Neutrophils Absolute Auto 3700 /uL (1500-7000); Neutrophils Percent Auto 70.6 % (50-75); Platelet Count 289 X10^3/uL (150-400); Red Blood Cell Count 5.06 X10^6/uL (4.0-5.2); White Blood Cell Count 5.2 X10^3/uL (4.5-11.0)
[2024-07-12 09:08] LABS: Hemoglobin A1C% w Est Avg Glu 6.3 % (4.0-6.0)
[2024-07-12 09:18] LABS: Alanine Aminotransferase 20 IU/L (<35); Albumin 4.2 g/dL (3.5-5.0); Albumin Globulin Ratio 1.7 (1.0-2.8); Alkaline Phosphatase 56 U/L (38-126); Aspartate Aminotransferase 29 IU/L (14-36); BUN Creatinine Ratio 25.7 (6-22); Bilirubin Total 0.4 mg/dL (0.2-1.3); Blood Urea Nitrogen 19 mg/dL (7-17); Calcium 9.6 mg/dL (8.4-10.2); Carbon Dioxide 29 mmol/L (22-32); Chloride 103 mmol/L (98-107); Estimated Glomerular Filt Rate > 60 mL/min (>60); Globulin 2.5 g/dL (1.7-4.1); Glucose 95 mg/dL (80-110); HEMOLYSIS < 15 (0-50); Potassium 4.2 mmol/L (3.4-5.1); Sodium 140 mmol/L (137-145); Total Protein 6.7 g/dL (6.3-8.2)
[2024-07-12 09:33] LABS: Free T4, Direct Thyroxine 1.02 ng/dL (0.78-2.19)
[2024-07-12 09:47] LABS: Thyroid Stimulating Hormone 3.13 uIU/mL (0.47-4.68)
== END ==
PROVIDERS: PCP Family Medicine; Referring Provider Family Medicine; Visit Provider Family Medicine
DX: I10 Essential (primary) hypertension (principal); E11.9 Type 2 diabetes mellitus without complications; E78.2 Mixed hyperlipidemia; E03.9 Hypothyroidism, unspecified; I48.11 Longstanding persistent atrial fibrillation
CPT/HCPCS: 36415; 80053; 83036; 84439; 84443; 85025

== ENCOUNTER → 2024-11-19 08:56 | Outpatient (CLI) | payer MEDICARE, SELFPAY ==
[2023-08-30 14:17] VITALS: BMI 28.3
== END ==
PROVIDERS: PCP Family Medicine; Visit Provider Nurse Practitioner Family
DX: R30.0 Dysuria (principal)
CPT/HCPCS: 87077; 87086; 87186

== ENCOUNTER → 2024-12-29 08:26 | Outpatient (CLI) | payer MEDICARE, SELFPAY ==
[2023-08-30 14:17] VITALS: BMI 28.3
[2024-12-29 11:19] LABS: Alanine Aminotransferase 19 IU/L (<35); Albumin 4.2 g/dL (3.5-5.0); Albumin Globulin Ratio 1.8 (1.0-2.8); Alkaline Phosphatase 65 U/L (38-126); Blood Urea Nitrogen 20 mg/dL (7-17); Calcium 9.4 mg/dL (8.4-10.2); Carbon Dioxide 30 mmol/L (22-32); Chloride 99 mmol/L (98-107); Estimated Glomerular Filt Rate > 60 mL/min (>60); Globulin 2.3 g/dL (1.7-4.1); Glucose 113 mg/dL (70-99); HEMOLYSIS < 15 (0-50); Potassium 4.2 mmol/L (3.4-5.1); Sodium 137 mmol/L (137-145); Total Protein 6.5 g/dL (6.3-8.2)
[2024-12-29 11:20] LABS: Hemoglobin A1C% w Est Avg Glu 6.3 % (4.0-6.0)
[2024-12-29 11:28] LABS: Free T4, Direct Thyroxine 1.06 ng/dL (0.78-2.19)
[2024-12-29 11:42] LABS: Thyroid Stimulating Hormone 4.10 uIU/mL (0.47-4.68)
== END ==
PROVIDERS: PCP Family Medicine; Referring Provider Family Medicine; Visit Provider Family Medicine
DX: E11.9 Type 2 diabetes mellitus without complications (principal); E03.9 Hypothyroidism, unspecified; E78.5 Hyperlipidemia, unspecified; I10 Essential (primary) hypertension
CPT/HCPCS: 36415; 80053; 83036; 84439; 84443